=== PATIENT | female | born 1960 | race Caucasian/White ===

== ENCOUNTER 2019-03-11 14:56 | Observation (INO) | payer MEDICARE, MEDICAID ==
[2019-03-11] MEDS ORDERED: diazePAM 5 MG/ML MDV IVPUSH ONE (15:05)
[2019-03-11] MEDS ORDERED: Sodium Chloride 0.9% 10 ML Syringe FLUSH PRN (15:05)
[2019-03-11] MEDS ORDERED: Sodium Chloride 0.9% 1,000 ML IV ONE (15:06)
--- NOTE | 2019-03-11 15:36 | EDM.PDOC ---
<Zaynab English - Last Filed: 03/11/19 16:55> ED HPI GENERAL MEDICAL PROBLEM - General Chief Complaint: General Stated Complaint: decrease responsiveness/seizure Time Seen by Provider: 03/11/19 15:00 Source of Information: Reports: Other History Limitations: Reports: Language Barrier, Other (Intellectual disability patient-limited verbal) - History of Present Illness INITIAL COMMENTS - FREE TEXT/NARRATIVE: Patient comes in to the emergency department with complaint of seizure activity. Patient has an history of seizures and is on Depakote 500 mg twice a day however for as long as the patient has [facility] living [facility] they have not noticed any seizure activities. She's also been in to see her neurologist on a regular basis and they have not change her medications in many years for they have had no increase or seizure activity. According to staff the patient was up walking around at work and was vacuuming when she would not respond appropriately and she needed to sit down and she was not answering questions and was having "shaking" episodes according to the staff. They called 911 for further assistance. EMS on scene state that they did notice some generalized tremor activity was unresponsiveness at times. Her eyes would roll back in the back of her head. When she came around she was not responding appropriately according to her baseline communication abilities. Patient does have intellectual disability and does expressing herself. Staff state that the current state she is in is more extensive than normally. They state she has not been ill lately; no fevers; eat all her breakfast and lunch; did not eat or get into any cleaning supplies while at work. - Related Data Allergies Allergy/AdvReac Type Severity Reaction Status Date / Time cephalexin [From Keflex] Allergy Cannot Verified 03/11/19 17:33 Remember phenobarbital Allergy Cannot Verified 03/11/19 17:33 Remember phenytoin [From Dilantin] Allergy Cannot Verified 03/11/19 17:33 Remember Home Meds: Home Meds Carboxymethylcellulose Sodium [Refresh Tears 0.5%] 1 drop EYEBOTH DAILY [History] Cholecalciferol (Vitamin D3) [Vitamin D3] 2,000 unit PO DAILY 03/11/19 [History] Divalproex Sodium [Divalproex Sodium ER] 500 mg PO BID 03/11/19 [History] Levothyroxine 125 mcg PO ACBREAKFAST 03/11/19 [History] Multivitamin [Multi-Vitamin Daily] 1 each PO DAILY 03/11/19 [History] ED ROS GENERAL - Review of Systems Review Of Systems: Unable To Obtain ED EXAM, GENERAL - Physical Exam Exam: See Below Exam Limited By: Language Barrier General Appearance: Alert, No Apparent Distress Eye Exam: Bilateral Eye: PERRL Respiratory/Chest: No Respiratory Distress, Lungs Clear, Normal Breath Sounds, No Accessory Muscle Use, Chest Non-Tender Cardiovascular: Normal Peripheral Pulses, Regular Rate, Rhythm, No Edema Back Exam: Normal Inspection, Full Range of Motion Extremities: Normal Inspection, Non-Tender, No Pedal Edema Neurological: Alert, Normal Gait Psychiatric: Normal Affect, Normal Mood Skin Exam: Warm, Dry, Intact, Normal Color Course - Vital Signs Last Recorded V/S: Last Vital Signs Temp 35.8 C 03/11/19 17:29 Pulse 56 L 03/11/19 17:29 Resp 16 03/11/19 17:29 BP 150/54 H 03/11/19 17:29 Pulse Ox 100 03/11/19 17:29 - Orders/Labs/Meds Orders: Active Orders 24 hr Category Date Time Status AMMONIA [REF] Stat Lab 03/11/19 15:51 Received CULTURE URINE [RM] Stat Lab 03/11/19 16:30 Received VALPROIC ACID [REF] Stat Lab 03/11/19 15:22 Received Sodium Chloride 0.9% [Saline Flush] Med 03/11/19 15:05 Active 10 ml FLUSH ASDIRECTED PRN Peripheral IV Insertion Adult [OM.PC] Stat Oth 03/11/19 15:05 Ordered Medication Orders Cholecalciferol (Vitamin D3) 2,000 units PO DAILY [facility] Divalproex Sodium (Divalproex Sodium) 500 mg PO QAM [facility] Divalproex Sodium (Divalproex Sodium) 750 mg PO BEDTIME [facility] Levothyroxine Sodium (Levothyroxine) 125 mcg PO ACBREAKFAST COUNTS INCLUDE 234 BEDS AT THE [facility] Multivitamins/Minerals (Thera M Plus) 1 tab PO DAILY K[facility]NA Non-Formulary Medication (Carboxymethylcellulose Sodium [Refresh Tears 0.5%]) 1 drop EYEBOTH DAILY K[facility]NA Sodium Chloride (Saline Flush) 10 ml FLUSH ASDIRECTED PRN PRN Reason: Keep Vein Open Labs: Laboratory Tests 03/11/19 03/11/1903/11/19 Range/Units 15:22 15:22 15:22 WBC 3.7 L (4.0-10.0) x10^3/uL RBC 3.59 L (4.00-5.50) x10^6/uL Hgb 12.8 (12.0-16.0) g/dL Hct 36.7 (33.0-47.0) % MCV 102.2 H (78.0-93.0) fL MCH 35.7 H (26.0-32.0) pg MCHC 34.9 (32.0-36.0) g/dL RDW Coeff of Ester 14.1 (10.0-15.0) % Plt Count 203 (130-400) x10^3/uL Neut % (Auto) 54.6 (50.0-80.0) % Lymph % (Auto) 35.1 (25.0-50.0) % [place] % (Auto) 9.0 (2.0-11.0) % Eos % (Auto) 0.8 (0.0-4.0) % Baso % (Auto) 0.5 (0.2-1.2) % Sodium 142 (136-145) mmol/L Potassium 4.1 (3.5-5.1) mmol/L Chloride 104 (98-107) mmol/L Carbon Dioxide 31 (21-32) mmol/L Anion Gap 11.1 (10-20) mmol/L BUN 28 H (7-18) mg/dL Creatinine 1.2 H (0.55-1.02) mg/dL Est Cr Clr Drug Dosing TNP Estimated GFR (MDRD) 46 Glucose 122 H (74-106) mg/dL Calcium 8.8 (8.5-10.1) mg/dL Corrected Calcium 9.60 (8.5-10.1) mg/dL Total Bilirubin 0.2 (0.2-1.0) mg/dL AST 24 (15-37) U/L ALT 21 (14-59) U/L Alkaline Phosphatase 93 (46-116) U/L Creatine Kinase 62 (26-192) U/L Total Protein 7.6 (6.4-8.2) g/dL Albumin 3.0 L (3.4-5.0) g/dL Globulin 4.6 Albumin/Globulin Ratio 0.65 Urine Color (YELLOW) Urine Appearance (CLEAR) Urine pH (5.0-8.0) Ur Specific [place] Urine Protein (NEGATIVE) mg/dL Urine Glucose (UA) (NEGATIVE) mg/dL Urine Ketones (NEGATIVE) mg/dL Urine Occult Blood (NEGATIVE) Urine Nitrite (NEGATIVE) Urine Bilirubin (NEGATIVE) Urine Urobilinogen (0.2) EU/dL Ur Leukocyte Esterase (NEGATIVE) Urine RBC (NOT SEEN) /HPF Urine WBC (NOT SEEN) /HPF Ur Squamous Epith Cells (NEGATIVE) /HPF Urine Bacteria (NEGATIVE) /HPF Urine Mucus (NEGATIVE) /LPF Urinalysis Comment 03/11/19 Range/Units 16:30 WBC (4.0-10.0) x10^3/uL RBC (4.00-5.50) x10^6/uL Hgb (12.0-16.0) g/dL Hct (33.0-47.0) % MCV (78.0-93.0) fL MCH (26.0-32.0) pg MCHC (32.0-36.0) g/dL RDW Coeff of Ester (10.0-15.0) % Plt Count (130-400) x10^3/uL Neut % (Auto) (50.0-80.0) % Lymph % (Auto) (25.0-50.0) % [place] % (Auto) (2.0-11.0) % Eos % (Auto) (0.0-4.0) % Baso % (Auto) (0.2-1.2) % Sodium (136-145) mmol/L Potassium (3.5-5.1) mmol/L Chloride (98-107) mmol/L Carbon Dioxide (21-32) mmol/L Anion Gap (10-20) mmol/L BUN (7-18) mg/dL Creatinine (0.55-1.02) mg/dL Est Cr Clr Drug Dosing Estimated GFR (MDRD) Glucose (74-106) mg/dL Calcium (8.5-10.1) mg/dL Corrected Calcium (8.5-10.1) mg/dL Total Bilirubin (0.2-1.0) mg/dL AST (15-37) U/L ALT (14-59) U/L Alkaline Phosphatase (46-116) U/L Creatine Kinase (26-192) U/L Total Protein (6.4-8.2) g/dL Albumin (3.4-5.0) g/dL Globulin Albumin/Globulin Ratio Urine Color Yellow (YELLOW) Urine Appearance Clear (CLEAR) Urine pH 6.5 (5.0-8.0) Ur Specific [place] <1.005 Urine Protein >=300 H (NEGATIVE) mg/dL Urine Glucose (UA) Negative (NEGATIVE) mg/dL Urine Ketones Negative (NEGATIVE) mg/dL Urine Occult Blood Negative (NEGATIVE) Urine Nitrite Negative (NEGATIVE) Urine Bilirubin Negative (NEGATIVE) Urine Urobilinogen 0.2 (0.2) EU/dL Ur Leukocyte Esterase Moderate H (NEGATIVE) Urine RBC 0-5 (NOT SEEN) /HPF Urine WBC 0-5 (NOT SEEN) /HPF Ur Squamous Epith Cells Rare (NEGATIVE) /HPF Urine Bacteria Not seen (NEGATIVE) /HPF Urine Mucus Not seen (NEGATIVE) /LPF Urinalysis Comment Meds: Medications Generic Name Dose Route Start Last Admin Trade Name Freq PRN Reason Stop Dose Admin Cholecalciferol 2,000 units 03/12/19 08:00 Vitamin D3 PO DAILY KATIANA Divalproex Sodium 500 mg 03/12/19 08:00 Divalproex Sodium PO QAM KATIANA Divalproex Sodium 750 mg 03/12/19 20:00 Divalproex Sodium PO BEDTIME KATIANA Levothyroxine Sodium 125 mcg 03/12/19 07:00 Levothyroxine PO ACBREAKFAST KATIANA Multivitamins/Minerals 1 tab 03/12/19 08:00 Thera M Plus PO DAILY KATIANA Non-Formulary Medication 1 drop 03/12/19 08:00 Carboxymethylcellulose Sodium [Refresh Tears 0.5%] EYEBOTH DAILY KATIANA Sodium Chloride 10 ml 03/11/19 15:05 Saline Flush FLUSH ASDIRECTED PRN Keep Vein Open Discontinued Medications Generic Name Dose Route Start Last Admin Trade Name Freq PRN Reason Stop Dose Admin Diazepam 5 mg 03/11/19 15:05 03/11/19 15:39 Valium IVPUSH 03/11/19 15:06 5 mg STAT ONE Administration Divalproex Sodium 500 mg 03/11/19 16:52 03/11/19 17:03 Divalproex Sodium PO 03/11/19 16:53 500 mg NOW STA Administration Divalproex Sodium 500 mg 03/12/19 08:00 Depakote Er PO QAM KATIANA Divalproex Sodium 750 mg 03/11/19 20:00 Divalproex Sodium PO BEDTIME KATIANA Divalproex Sodium 250 mg 03/11/19 17:39 Divalproex Sodium PO 03/11/19 17:40 ONETIME ONE Sodium Chloride 1,000 mls @ 1,000 mls/hr 03/11/19 15:06 03/11/19 15:14 Normal Saline IV 03/11/19 16:05 1,000 mls/hr ONETIME ONE Administration Departure - Departure Disposition: Refer to Observation Condition: Good Clinical Impression: Seizure - Discharge Information *PRESCRIPTION DRUG MONITORING PROGRAM REVIEWED*: Not Applicable *COPY OF PRESCRIPTION DRUG MONITORING REPORT IN PATIENT TOMMIE: Not Applicable - Problem List Review Problem List Initiated/Reviewed/Updated: Yes - Assessment/Plan Admission H&P: Please use this note as an admission H&P Assessment:: 1. seizure activity Plan: 1. Labs completed in the ER. Results reviewed with the patient 2. IV fluids given to the patient 3. Delay of information provided for staff who were with pt left before talking to staff and next staff not present who could offer answers till 3:30. 4. Valium 5mg IV given for involuntary eye and body movement. 5. Patient to get up and ambulate without complication 6. UA completed. 8. [facility] Neurology contacted who suggest 500mg depakote dose now. Increase depakote 500mg AM and 750mg HS until levels return and evaluate. Observe over night for any added activity. If changes in mentation or increase in seizure activity they recommend calling back and transferring for further medical management. 7. Report given to Timmy ANTONIO. Pt will be admitted to observation <Timmy Crowley - Last Filed: 03/11/19 17:51> Departure - Departure Time of Disposition: 17:30 - Assessment/Plan Plan: Resumed care at shift change. Pt. was given an extra 250mg of depakote for a total of 750mg tonight. Pt. was placed on seizure precautions and hourly neuro checks. Regular diet. Staff states that she is a code 2.
[2019-03-11 15:48] LABS: CHLORIDE,CL 104 mmol/L (98-107); SODIUM,NA 142 mmol/L (136-145)
[2019-03-11 15:54] LABS: ANION GAP 11.1 mmol/L (10-20)
--- NOTE | 2019-03-11 16:38 | CT ---
[id number] CT/CT Head WO IV EXAM: NONCONTRAST HEAD CT INDICATION: Seizure activity with history of Down syndrome. COMPARISON: None. DISCUSSION: Motion artifact somewhat limits this assessment. There is mild generalized atrophy. Mild multifocal white matter hypoattenuation is nonspecific, but generally ascribed to chronic small vessel ischemia. No mass effect or midline shift. No acute hemorrhage or extra-axial fluid collection. No acute territorial infarct is identified. A limited look at the orbits and paranasal sinuses is unremarkable. IMPRESSION: 1. No acute findings. Andrew Bauman MD 03/11/19 0807 Thank you for allowing us to participate in the care of your patient.
[2019-03-11] MEDS ORDERED: Divalproex Sodium Delayed-Release 250 MG Tab.CR PO STA (16:52)
[2019-03-11] MEDS ORDERED: Divalproex Sodium Delayed-Release 250 MG Tab.CR PO ONE (17:39)
[2019-03-11] MEDS: Dextran 70/Hypromellose/PF Ophth Soln 0.9 ML UD EYEBOTH SCH (19:49)
[2019-03-11] MEDS ORDERED: Divalproex Sodium Delayed-Release 250 MG Tab.CR PO SCH (20:00)
[2019-03-12] MEDS ORDERED: Levothyroxine 125 MCG Tab PO SCH (07:00)
[2019-03-12] MEDS: Dextran 70/Hypromellose/PF Ophth Soln 0.9 ML UD EYEBOTH SCH (07:35)
[2019-03-12] MEDS ORDERED: Divalproex Sodium 500 MG Tab.ER PO SCH (08:00)
[2019-03-12] MEDS ORDERED: Divalproex Sodium Delayed-Release 250 MG Tab.CR PO SCH ×2 (08:00→20:00)
[2019-03-12] MEDS ORDERED: Multivitamins with Iron/Calcium/Folic Acid/Minerals Tab PO SCH (08:00)
[2019-03-12] MEDS ORDERED: Cholecalciferol (Vitamin D3) 1,000 Unit Tab PO SCH (08:00)
[2019-03-12] MEDS ORDERED: Nitrofurantoin Monohydrate/Macrocrystalline 100 MG Cap PO SCH ×2 (08:00→10:00)
--- NOTE | 2019-03-12 08:07 | PCM.DCSUM1 ---
Discharge Summary - Hospital Course Free Text/Narrative:: Patient admitted for observation last night due to return of seizure activity and UTI. Patient resides at [facility] and has seizure disorder historically, but no recent activity. Was unresponsive, with head shaking. Upon completion of labwork, moderate amounts of leukocytes were in urine. Culture is pending. No nitrates. Brief History: Neurology was consulted in ER and suggested to have her Depakote dosing increased, and an initial 500 mg dose in ER. Increased to 500 mg in AM and 750 mg HS pending depakote level evaluation. Diagnosis: Stroke: No Modified [place] Scale: No Symptoms at All Modified [place] Scale Score: 0 - Discharge Data Discharge Date: 03/12/19 Discharge Disposition: Home, Self-Care 01 Condition: Good - Discharge Diagnosis/Problem(s) (1) Seizure SNOMED Code(s): 00046610 ICD Code: R56.9 - UNSPECIFIED CONVULSIONS Status: Acute Current Visit: Yes (2) UTI (urinary tract infection) SNOMED Code(s): 73757214 ICD Code: N39.0 - URINARY TRACT INFECTION, SITE NOT SPECIFIED Status: Acute Current Visit: Yes Qualifiers: Urinary tract infection type: acute cystitis Hematuria presence: without hematuria Qualified Code(s): N30.00 - Acute cystitis without hematuria - Patient Summary/Data Recommended Follow-up Testing/Procedures: Follow up with primary provider this week to review Valproic Acid level draw and adjust Depakote dosing as appropriate Follow up with neurology as needed. Sooner if seizure activity returns. - Patient Instructions Diet: Usual Diet as Tolerated Activity: As Tolerated - Discharge Plan *PRESCRIPTION DRUG MONITORING PROGRAM REVIEWED*: Not Applicable *COPY OF PRESCRIPTION DRUG MONITORING REPORT IN PATIENT TOMMIE: Not Applicable Home Medications: Home Meds Carboxymethylcellulose Sodium [Refresh Tears 0.5%] 1 drop EYEBOTH BID 03/11/19 [ History] Cholecalciferol (Vitamin D3) [Vitamin D3] 2,000 unit PO DAILY 03/11/19 [History] Divalproex Sodium [Divalproex Sodium ER] 500 mg PO BID 03/11/19 [History] Levothyroxine 125 mcg PO ACBREAKFAST 03/11/19 [History] Multivitamin [Multi-Vitamin Daily] 1 each PO DAILY 03/11/19 [History] Patient Handouts: Seizure, Adult, [id number], Urinary Tract Infection, Adult , [id number] Referrals: Paul Mabry MD [Primary Care Provider] - - Discharge Summary/Plan Comment DC Time >30 min.: Yes Discharge Summary/Plan Comment: Discharge to home with new dosing of Depakote of 500 mg AM and 750 mg HS on recommendation from Neurology Follow up with primary to review Valproic Acid levels and adjust new dosing as needed Schedule follow up with neurology for additional testing if seizure activity returns Finish macrobid course until finished unless you have allergic reaction including systemic hives/itching, difficulty breathing, facial swelling Stay well hydrated We will notify [facility] if there need to be any changes to antibiotic based on culture results - General Info Date of Service: 03/12/19 Admission Dx/Problem (Free Text: Patient admitted observation after being brought into the ER for seizure activity. Known seizure disorder, however she has not had a witnessed seizure in years per staff report. UTI also found on urinalysis with moderate amounts of leukocytes. Functional Status: Reports: Pain Controlled, Tolerating Diet, Ambulating, Urinating - Review of Systems General: Reports: No Symptoms HEENT: Reports: Glasses Pulmonary: Reports: No Symptoms Cardiovascular: Reports: No Symptoms Gastrointestinal: Reports: No Symptoms Genitourinary: Reports: No Symptoms Musculoskeletal: Reports: No Symptoms Skin: Reports: No Symptoms Neurological: Reports: No Symptoms Psychiatric: Reports: No Symptoms - Patient Data Vitals - Most Recent: Last Vital Signs Temp 36.0 C 03/12/19 06:00 Pulse 54 L 03/12/19 06:00 Resp 16 03/12/19 06:00 BP 112/46 L 03/12/19 06:00 Pulse Ox 96 03/12/19 06:00 Weight - Most Recent: 74.843 kg I&O - Last 24 hours: Intake & Output 03/11/19 03/12/19 03/12/19 22:59 06:59 14:59 Intake Total 360 Balance 360 Lab Results - Last 24 hrs: Laboratory Results - last 24 hr 03/11/19 03/11/19 03/11/19 Range/Units 15:22 15:22 15:22 WBC 3.7 L (4.0-10.0) x10^3/uL RBC 3.59 L (4.00-5.50) x10^6/uL Hgb 12.8 (12.0-16.0) g/dL Hct 36.7 (33.0-47.0) % MCV 102.2 H (78.0-93.0) fL MCH 35.7 H (26.0-32.0) pg MCHC 34.9 (32.0-36.0) g/dL RDW Coeff of Ester 14.1 (10.0-15.0) % Plt Count 203 (130-400) x10^3/uL Neut % (Auto) 54.6 (50.0-80.0) % Lymph % (Auto) 35.1 (25.0-50.0) % [place] % (Auto) 9.0 (2.0-11.0) % Eos % (Auto) 0.8 (0.0-4.0) % Baso % (Auto) 0.5 (0.2-1.2) % Sodium 142 (136-145) mmol/L Potassium 4.1 (3.5-5.1) mmol/L Chloride 104 (98-107) mmol/L Carbon Dioxide 31 (21-32) mmol/L Anion Gap 11.1 (10-20) mmol/L BUN 28 H (7-18) mg/dL Creatinine 1.2 H (0.55-1.02) mg/dL Est Cr Clr Drug Dosing TNP Estimated GFR (MDRD) 46 Glucose 122 H (74-106) mg/dL Calcium 8.8 (8.5-10.1) mg/dL Corrected Calcium 9.60 (8.5-10.1) mg/dL Total Bilirubin 0.2 (0.2-1.0) mg/dL AST 24 (15-37) U/L ALT 21 (14-59) U/L Alkaline Phosphatase 93 (46-116) U/L Creatine Kinase 62 (26-192) U/L Total Protein 7.6 (6.4-8.2) g/dL Albumin 3.0 L (3.4-5.0) g/dL Globulin 4.6 Albumin/Globulin Ratio 0.65 Urine Color (YELLOW) Urine Appearance (CLEAR) Urine pH (5.0-8.0) Ur Specific [place] Urine Protein (NEGATIVE) mg/dL Urine Glucose (UA) (NEGATIVE) mg/dL Urine Ketones (NEGATIVE) mg/dL Urine Occult Blood (NEGATIVE) Urine Nitrite (NEGATIVE) Urine Bilirubin (NEGATIVE) Urine Urobilinogen (0.2) EU/dL Ur Leukocyte Esterase (NEGATIVE) Urine RBC (NOT SEEN) /HPF Urine WBC (NOT SEEN) /HPF Ur Squamous Epith Cells (NEGATIVE) /HPF Urine Bacteria (NEGATIVE) /HPF Urine Mucus (NEGATIVE) /LPF Urinalysis Comment 03/11/19 Range/Units 16:30 WBC (4.0-10.0) x10^3/uL RBC (4.00-5.50) x10^6/uL Hgb (12.0-16.0) g/dL Hct (33.0-47.0) % MCV (78.0-93.0) fL MCH (26.0-32.0) pg MCHC (32.0-36.0) g/dL RDW Coeff of Ester (10.0-15.0) % Plt Count (130-400) x10^3/uL Neut % (Auto) (50.0-80.0) % Lymph % (Auto) (25.0-50.0) % [place] % (Auto) (2.0-11.0) % Eos % (Auto) (0.0-4.0) % Baso % (Auto) (0.2-1.2) % Sodium (136-145) mmol/L Potassium (3.5-5.1) mmol/L Chloride (98-107) mmol/L Carbon Dioxide (21-32) mmol/L Anion Gap (10-20) mmol/L BUN (7-18) mg/dL Creatinine (0.55-1.02) mg/dL Est Cr Clr Drug Dosing Estimated GFR (MDRD) Glucose (74-106) mg/dL Calcium (8.5-10.1) mg/dL Corrected Calcium (8.5-10.1) mg/dL Total Bilirubin (0.2-1.0) mg/dL AST (15-37) U/L ALT (14-59) U/L Alkaline Phosphatase (46-116) U/L Creatine Kinase (26-192) U/L Total Protein (6.4-8.2) g/dL Albumin (3.4-5.0) g/dL Globulin Albumin/Globulin Ratio Urine Color Yellow (YELLOW) Urine Appearance Clear (CLEAR) Urine pH 6.5 (5.0-8.0) Ur Specific [place] <1.005 Urine Protein >=300 H (NEGATIVE) mg/dL Urine Glucose (UA) Negative (NEGATIVE) mg/dL Urine Ketones Negative (NEGATIVE) mg/dL Urine Occult Blood Negative (NEGATIVE) Urine Nitrite Negative (NEGATIVE) Urine Bilirubin Negative (NEGATIVE) Urine Urobilinogen 0.2 (0.2) EU/dL Ur Leukocyte Esterase Moderate H (NEGATIVE) Urine RBC 0-5 (NOT SEEN) /HPF Urine WBC 0-5 (NOT SEEN) /HPF Ur Squamous Epith Cells Rare (NEGATIVE) /HPF Urine Bacteria Not seen (NEGATIVE) /HPF Urine Mucus Not seen (NEGATIVE) /LPF Urinalysis Comment Med Orders - Current: Current Medications Artificial Tears (Tears Naturale Free) 0 each EYEBOTH BID [facility] Last Admin: 03/12/19 07:35 Dose: 1 each Cholecalciferol (Vitamin D3) 2,000 units PO DAILY [facility] Last Admin: 03/12/19 07:34 Dose: 2,000 units Divalproex Sodium (Divalproex Sodium) 500 mg PO QAM [facility] Last Admin: 03/12/19 07:34 Dose: 500 mg Divalproex Sodium (Divalproex Sodium) 750 mg PO BEDTIME [facility] Levothyroxine Sodium (Levothyroxine) 125 mcg PO ACBREAKFAST [facility] Last Admin: 03/12/19 06:32 Dose: 125 mcg Multivitamins/Minerals (Thera M Plus) 1 tab PO DAILY [facility] Last Admin: 03/12/19 07:37 Dose: 1 tab Nitrofurantoin Macrocrystals (Macrobid) 100 mg PO BID [facility] Last Admin: 03/12/19 07:34 Dose: 100 mg Sodium Chloride (Saline Flush) 10 ml FLUSH ASDIRECTED PRN PRN Reason: Keep Vein Open Discontinued Medications Diazepam (Valium) 5 mg IVPUSH STAT ONE Stop: 03/11/19 15:06 Last Admin: 03/11/19 15:39 Dose: 5 mg Divalproex Sodium (Divalproex Sodium) 500 mg PO NOW STA Stop: 03/11/19 16:53 Last Admin: 03/11/19 17:03 Dose: 500 mg Divalproex Sodium (Depakote Er) 500 mg PO QAM [facility] Divalproex Sodium (Divalproex Sodium) 750 mg PO BEDTIME KATIANA Divalproex Sodium (Divalproex Sodium) 250 mg PO ONETIME ONE Stop: 03/11/19 17:40 Last Admin: 03/11/19 17:54 Dose: 250 mg Sodium Chloride (Normal Saline) 1,000 mls @ 1,000 mls/hr IV ONETIME ONE Stop: 03/11/19 16:05 Last Admin: 03/11/19 15:14 Dose: 1,000 mls/hr - Exam General: Reports: Alert, Oriented HEENT: Reports: Pupils Equal, Pupils Reactive, EOMI, Mucous Membr. Moist/[place] Neck: Reports: Supple Lungs: Reports: Clear to Auscultation, Normal Respiratory Effort Cardiovascular: Reports: Regular Rate, Regular Rhythm GI/Abdominal Exam: Normal Bowel Sounds, Soft, Non-Tender, No Organomegaly, No Distention, No Abnormal Bruit, No Mass, Pelvis Stable Back Exam: Reports: Normal Inspection, Full Range of Motion Extremities: Normal Inspection, Normal Range of Motion, Non-Tender, No Pedal Edema, Normal Capillary Refill Skin: Reports: Warm, Dry, Intact Wound/Incisions: Reports: Healing Well Neurological: Reports: No New Focal Deficit Psy/Mental Status: Reports: Alert, Normal Affect, Normal Mood
[2019-03-12] MEDS ORDERED: Divalproex Sodium Delayed-Release 250 MG Tab.CR PO ONE (09:13)
== END 2019-03-12 10:45 | disposition home or self-care (01) ==
LOC: VM.ED 14:56 → VM.MS 17:05
PROVIDERS: ADMIT Physician Assistant; ATTEND Physician Assistant
DX: R56.9 Unspecified convulsions (principal); N30.00 Acute cystitis without hematuria; Z79.899 Other long term (current) drug therapy; Z88.1 Allergy status to other antibiotic agents; Z88.8 Allergy status to other drugs, medicaments and biological substances
CPT/HCPCS: 36415; 70450; 80053; 80164; 81001; 82140; 82550; 85025; 87086; 93005; 96361; 96374; 99285; A9270; J3360; J7030; 99217; 99219; G0378

== ENCOUNTER 2019-04-04 23:30 | Emergency (ER) | payer MEDICARE, MEDICAID ==
[2019-04-04] MEDS: GI Cocktail Oral Solution 30 ML PO ONE (23:53)
[2019-04-05 00:46] LABS: ANION GAP 10.2 mmol/L (10-20); CHLORIDE,CL 101 mmol/L (98-107); SODIUM,NA 142 mmol/L (136-145)
[2019-04-05] MEDS: Aluminum Hydroxide/Magnesium Hydroxide/Simethicone Susp 30 ML Cup PO ONE (00:49)
--- NOTE | 2019-04-05 01:00 | EDM.PDOC ---
ED HPI GENERAL MEDICAL PROBLEM - General Chief Complaint: Chest Pain Stated Complaint: Chest Pain Time Seen by Provider: 04/04/19 23:40 Source of Information: Reports: Patient History Limitations: Reports: No Limitations - History of Present Illness INITIAL COMMENTS - FREE TEXT/NARRATIVE: Pt. presents to ER with complaints of epigastric pain. Pt. is a resident at one of the group homes (she has down syndrome) and woke one of the staff members stating she was having discomfort. Staff states that she is difficult to assess and often has various symptoms when she is upset, but stated that she had a great night last night and ate subway for supper. She still has her gallbladder to their knowledge. Pt. states that the pain is located in mid upper abdomen. The discomfort is worse with palpation of the area. Pt. has not had any fever or chills. No bloody stools that they are aware of. No recent trauma. She was hospitalized not long ago due to seizure activity thought to be due to subtheraputic depakote, but staff states that she has been doing well since then. Onset: Today Onset Date: 04/05/19 Quality: Reports: Sharp Epigastric Pain Score (Numeric/FACES): 6 - Related Data Allergies Allergy/AdvReac Type Severity Reaction Status Date / Time cephalexin [From Keflex] Allergy Cannot Verified 04/04/19 23:40 Remember phenobarbital Allergy Cannot Verified 04/04/19 23:40 Remember phenytoin [From Dilantin] Allergy Cannot Verified 04/04/19 23:40 Remember Home Meds: Home Meds Carboxymethylcellulose Sodium [Refresh Tears 0.5%] 1 drop EYEBOTH BID 03/11/19 [ History] Cholecalciferol (Vitamin D3) [Vitamin D3] 2,000 unit PO DAILY 03/11/19 [History] Levothyroxine 125 mcg PO ACBREAKFAST 03/11/19 [History] Multivitamin [Multi-Vitamin Daily] 1 each PO DAILY 03/11/19 [History] Divalproex Sodium 500 mg PO QAM #30 tab.cr 03/12/19 [Rx] Divalproex Sodium 750 mg PO BEDTIME #30 tab.cr 03/12/19 [Rx] Nitrofurantoin [place]/Macrocryst [Nitrofurantoin [place]-MCR] 100 mg PO BID #10 cap 03/12/19 [Rx] Past Medical History HEENT History: Reports: Cataract, Hard of Hearing, Impaired Vision, Otitis Media , Other (See Below) Other HEENT History: Patient wears hearing aides in both ears. Esotropia of right eye. 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 Henangioma (lesion removed from right upper eyelid GI Surgical History: Reports: Other (See Below) Other GI Surgeries/Procedures: Colon cancer screening Female Surgical History: Reports: Tubal Ligation Social & Family History - Tobacco Use Smoking Status *Q: Never Smoker - Recreational Drug Use Recreational Drug Use: No ED ROS GENERAL - Review of Systems Review Of Systems: See Below Constitutional: Reports: No Symptoms HEENT: Reports: No Symptoms Respiratory: Reports: No Symptoms Cardiovascular: Reports: No Symptoms Endocrine: Reports: No Symptoms GI/Abdominal: Reports: Abdominal Pain. Denies: Black Stool, Bloody Stool, Difficulty Swallowing, Hematochezia, Melena, Nausea, Vomiting : Reports: No Symptoms Musculoskeletal: Reports: No Symptoms Skin: Reports: No Symptoms Neurological: Reports: No Symptoms Psychiatric: Reports: No Symptoms Hematologic/Lymphatic: Reports: No Symptoms ED EXAM, GENERAL - Physical Exam Exam: See Below Exam Limited By: No Limitations General Appearance: Alert, WD/WN, No Apparent Distress Neck: Normal Inspection, Supple, Non-Tender, Full Range of Motion Respiratory/Chest: No Respiratory Distress, Lungs Clear, Normal Breath Sounds, No Accessory Muscle Use, Chest Non-Tender Cardiovascular: Normal Peripheral Pulses, Regular Rate, Rhythm, No Edema, No Gallop, No JVD, No Murmur, No Rub Peripheral Pulses: 4+: Radial (R) GI/Abdominal: Normal Bowel Sounds, Soft, No Organomegaly, No Distention, No Mass , Tender (tender on palpation of epigastrium) (Female) Exam: Deferred Rectal (Female) Exam: Deferred Back Exam: Normal Inspection, Full Range of Motion Extremities: Normal Inspection, Normal Range of Motion, Non-Tender, No Pedal Edema, Normal Capillary Refill Neurological: Alert, Oriented, CN II-XII Intact, Normal Cognition, Normal Gait, Normal Reflexes, No Motor/Sensory Deficits Psychiatric: Normal Affect, Normal Mood Skin Exam: Warm, Dry, Intact, Normal Color Lymphatic: No Adenopathy EKG INTERPRETATION Rhythm: NSR Pierce: Normal P-Wave: Present QRS: Normal ST-T: Normal QT: Normal Course - Vital Signs Last Recorded V/S: Last Vital Signs Temp 36.2 C 04/05/19 00:15 Pulse 67 04/05/19 00:15 Resp 16 04/05/19 00:15 BP 140/63 04/05/19 00:15 Pulse Ox 100 04/05/19 00:15 - Orders/Labs/Meds Orders: Active Orders 24 hr Category Date Time Status Chest 1V Frontal [CR] Stat Exams 04/04/19 23:46 Taken Labs: Laboratory Tests 04/05/19 04/05/19 04/05/19 Range/Units 00:07 00:07 00:07 WBC 4.5 (4.0-10.0) x10^3/uL RBC 3.93 L (4.00-5.50) x10^6/uL Hgb 13.7 (12.0-16.0) g/dL Hct 41.2 (33.0-47.0) % MCV 104.8 H (78.0-93.0) fL MCH 34.9 H (26.0-32.0) pg MCHC 33.3 (32.0-36.0) g/dL RDW Coeff of Ester 14.0 (10.0-15.0) % Plt Count 228 (130-400) x10^3/uL Add Manual Diff Yes Neutrophils % (Manual) 39 L (50-80) % Band Neutrophils % 3 (0-6) % Lymphocytes % (Manual) 48 (25-50) % Monocytes % (Manual) 10 (2-11) % Nucleated RBCs 1 (0-5) /100WBC Platelet Estimate Adequate Macrocytosis 1+ slight H PT 10.5 (10.0-12.8) SEC INR 0.9 L (2.0-3.5) Sodium 142 (136-145) mmol/L Potassium 4.2 (3.5-5.1) mmol/L Chloride 101 (98-107) mmol/L Carbon Dioxide 35 H (21-32) mmol/L Anion Gap 10.2 (10-20) mmol/L BUN 28 H (7-18) mg/dL Creatinine 1.2 H (0.55-1.02) mg/dL Est Cr Clr Drug Dosing TNP Estimated GFR (MDRD) 46 Glucose 90 (74-106) mg/dL Calcium 9.0 (8.5-10.1) mg/dL Corrected Calcium 9.64 (8.5-10.1) mg/dL Total Bilirubin 0.2 (0.2-1.0) mg/dL AST 26 (15-37) U/L ALT 23 (14-59) U/L Alkaline Phosphatase 95 (46-116) U/L Troponin I 0.020 (<=0.056) ng/mL C-Reactive Protein 0.5 (<=0.9) mg/dL Total Protein 8.0 (6.4-8.2) g/dL Albumin 3.2 L (3.4-5.0) g/dL Globulin 4.8 Albumin/Globulin Ratio 0.67 TSH, Ultra Sensitive 0.218 L (0.358-3.74) uIU/mL Meds: Medications Discontinued Medications Generic Name Dose Route Start Last Admin Trade Name Mauricio PRN Reason Stop Dose Admin Al Hydroxide/Mg Hydroxide 30 ml 04/04/19 23:48 04/04/19 23:53 Gi Cocktail PO 04/04/19 23:49 30 ml ONETIME ONE Administration Al Hydroxide/Mg Hydroxide 30 ml 04/05/19 00:43 04/05/19 00:49 Mag-Al Plus PO 04/05/19 00:44 30 ml ONETIME ONE Administration Departure - Departure Time of Disposition: 01:00 Disposition: Home, Self-Care 01 Clinical Impression: Esophagitis - Discharge Information Instructions: Gastroesophageal Reflux Disease, Adult, [id number] Referrals: Paul Mabry MD [Primary Care Provider] - Forms: ED Department Discharge Additional Instructions: Maalox as needed for continued abdominal pain She may feel better sleeping while sitting up in a chair tonight If she is continuing to have pain, follow-up with Dr. Mabry. She may need to start medication for reflux. I will defer to his, as this appears to be an isolated incident. - My Orders Last 24 Hours: My Active Orders 04/04/19 23:46 Chest 1V Frontal [CR] Stat - Assessment/Plan Last 24 Hours: My Active Orders 04/04/19 23:46 Chest 1V Frontal [CR] Stat Plan: Pt. was given a GI cocktail with complete resolution in her symptoms. After approx. 30 min she had some increased discomfort. She was given another 30ml of Maalox with resolution of pain. Cause of discomfort appears to be GI in nature. Pt. was subsequently discharged as her x-ray and labs were all normal. Advised that she sleep in an easy chair semi reclining if she has further pain. She was not started on any PPI or antihistamine at this time as it appears this is a resolving isolated incident. Maalox as needed for continued pain. Pt. to follow- up in clinic if she is having continued symptoms.
--- NOTE | 2019-04-05 08:11 | CR ---
[id number] RAD/RAD Chest PA or AP 1V EXAM: RAD Chest PA or AP 1V INDICATION: CHEST PAIN. COMPARISON: 02/08/2009. DISCUSSION: Cardiomediastinal silhouette is normal in size and contour. No infiltrate, effusion, pneumothorax, or edema. IMPRESSION: Negative examination of the chest. Richie Mcclure MD 04/05/19 0810 Thank you for allowing us to participate in the care of your patient.
== END 2019-04-05 01:00 | disposition home or self-care (01) ==
LOC: VM.ED 23:30
DX: K20.9 Esophagitis, unspecified (principal); E66.9 Obesity, unspecified; E78.00 Pure hypercholesterolemia, unspecified; E03.9 Hypothyroidism, unspecified; Z88.8 Allergy status to other drugs, medicaments and biological substances; Z88.1 Allergy status to other antibiotic agents; Z79.899 Other long term (current) drug therapy; Z68.30 Body mass index [BMI] 30.0-30.9, adult
CPT/HCPCS: 71045; 80053; 84443; 84484; 85025; 85610; 86140; 93005; 99284; A9270; 36415

== ENCOUNTER 2020-06-23 15:41 | Emergency (ER) | payer MEDICAID, MEDICARE ==
--- NOTE | 2020-06-23 16:13 | EDM.PDOC ---
ED HPI GENERAL MEDICAL PROBLEM - General Chief Complaint: Abdominal Pain Stated Complaint: POSSIBLE UTI Time Seen by Provider: 06/23/20 16:00 Source of Information: Reports: Provider (restorative care technician [facility] ) History Limitations: Reports: Altered Mental Status (Patient has Down syndrome) - History of Present Illness INITIAL COMMENTS - FREE TEXT/NARRATIVE: Patient is brought to the emergency department today from the nursing home with concerns of abdominal pain. HPI is primarily obtained from the caregiver as the patient has Down syndrome and has limited cognitive ability. Since yesterday morning the patient has been complaining of abdominal pain more when she urinates. She has been eating and drinking okay. No fever. No vomiting. No diarrhea. No falls. Rest of the HPI is unobtainable due to the patient's cognitive ability. Abdomen Pain Score (Numeric/FACES): 5 - Related Data Allergies Allergy/AdvReac Type Severity Reaction Status Date / Time cephalexin [From Keflex] Allergy Cannot Verified 06/23/20 16:24 Remember clindamycin Allergy Cannot Verified 06/23/20 16:24 Remember phenobarbital Allergy Cannot Verified 06/23/20 16:24 Remember phenytoin [From Dilantin] Allergy Cannot Verified 06/23/20 16:24 Remember Home Meds: Home Meds Carboxymethylcellulose Sodium [Refresh Tears 0.5%] 1 drop EYEBOTH BID 03/11/19 [History] Cholecalciferol (Vitamin D3) [Vitamin D3] 2,000 unit PO DAILY 03/11/19 [History] Levothyroxine 88 mcg PO ACBREAKFAST 03/11/19 [History] Multivitamin [Multi-Vitamin Daily] 1 each PO DAILY 03/11/19 [History] Divalproex Sodium [Divalproex Sodium ER] 500 mg PO BID 04/05/19 [History] Divalproex Sodium 250 mg PO BEDTIME 06/23/20 [History] polyethylene glycoL 3350 [MiraLAX] 17 gm PO MOWEFR 06/23/20 [History] Past Medical History HEENT History: Reports: Cataract, Hard of Hearing, Impaired Vision, Otitis Media, Other (See Below) Other HEENT History: Patient wears hearing aides in both ears. Esotropia of right eye. 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 Henangioma (lesion removed from right upper eyelid GI Surgical History: Reports: Other (See Below) Other GI Surgeries/Procedures: Colon cancer screening Female Surgical History: Reports: Tubal Ligation ED ROS GENERAL - Review of Systems Review Of Systems: Comprehensive ROS is negative, except as noted in HPI. ED EXAM, RENAL/ - Physical Exam Exam: See Below Text/Narrative:: I enter the room she is pointing to her abdomen and saying ouch and appears in mild distress. Exam Limited By: Altered Mental Status (Downs Syndrome with limited cognitive ability) General Appearance: Alert, Mild Distress Eye Exam: Bilateral Eye: EOMI Ears: Normal External Exam Nose: Normal Inspection Throat/Mouth: Normal Inspection Head: Atraumatic Neck: Normal Inspection Respiratory/Chest: No Respiratory Distress, Lungs Clear, Normal Breath Sounds, Chest Non-Tender Cardiovascular: Normal Peripheral Pulses, Regular Rate, Rhythm GI/Abdominal: Normal Bowel Sounds ( mildly hypoactive), Soft, Tender (Tenderness to left lower quadrant without guarding or rebound.). No: Rebound (Female) Exam: Other (Unremarkable external vaginal exam). No: Vaginal Bleeding, Vaginal Discharge, Vaginal Lesions Rectal (Female) Exam: Deferred Back Exam: Normal Inspection, Full Range of Motion Extremities: Normal Inspection, Normal Range of Motion, Non-Tender, Normal Capillary Refill Neurological: Alert, Confused (Baseline) Psychiatric: Normal Affect, Normal Mood Skin Exam: Warm, Dry, Intact, Normal Color, No Rash Course - Vital Signs Last Recorded V/S: Last Vital Signs Temp 96.9 F 06/23/20 15:50 Pulse 74 06/23/20 15:50 Resp 20 06/23/20 15:50 BP 106/35 L 06/23/20 15:50 Pulse Ox 100 06/23/20 15:50 - Orders/Labs/Meds Orders: Active Orders 24 hr Category Date Time Status Abdomen Pelvis w Cont [CT] Stat Exams 06/23/20 16:30 Stop Req Peripheral IV Insertion Adult [OM.PC] Stat Oth 06/23/20 16:29 Ordered Labs: Laboratory Tests 06/23/20 06/23/20 06/23/20 Range/Units 16:13 16:58 16:58 WBC 3.6 L (4.0-10.0) x10^3/uL RBC 3.96 L (4.00-5.50) x10^6/uL Hgb 14.0 (12.0-16.0) g/dL Hct 40.5 (33.0-47.0) % MCV 102.3 H (78.0-93.0) fL MCH 35.4 H (26.0-32.0) pg MCHC 34.6 (32.0-36.0) g/dL RDW Coeff of Ester 15.2 H (10.0-15.0) % Plt Count 171 (130-400) x10^3/uL Add Manual Diff Yes Neutrophils % (Manual) 50 (50-80) % Band Neutrophils % 2 (0-6) % Lymphocytes % (Manual) 34 (25-50) % Monocytes % (Manual) 10 (2-11) % Eosinophils % (Manual) 4 (0-4) % Platelet Estimate Adequate Clumped Platelets Occasional H Macrocytosis 1+ slight H Sodium 135 L (136-145) mmol/L Potassium 4.9 (3.5-5.1) mmol/L Chloride 102 (98-107) mmol/L Carbon Dioxide 29 (21-32) mmol/L Anion Gap 8.9 L (10-20) mmol/L BUN 25 H (7-18) mg/dL Creatinine 1.2 H (0.55-1.02) mg/dL Est Cr Clr Drug Dosing TNP Estimated GFR (MDRD) 46 Glucose 86 (74-106) mg/dL Lactic Acid (0.4-2.0) mmol/L Calcium 9.1 (8.5-10.1) mg/dL Corrected Calcium 10.30 H (8.5-10.1) mg/dL Total Bilirubin 0.5 (0.2-1.0) mg/dL AST 21 (15-37) U/L ALT 32 (14-59) U/L Alkaline Phosphatase 85 (46-116) U/L C-Reactive Protein 0.4 (<=0.9) mg/dL Total Protein 7.5 (6.4-8.2) g/dL Albumin 2.5 L (3.4-5.0) g/dL Globulin 5.0 Albumin/Globulin Ratio 0.50 Lipase 235 (73-393) U/L Urine Color Yellow (YELLOW) POC Urine Appearance Clear (CLEAR) POC Urine pH 6.5 (5.0-8.0) Ur Specific [place] 1.020 (1.005-1.030) POC Urine Protein Trace H (NEGATIVE) POC Ur Glucose (UA) Negative (NEGATIVE) POC Urine Ketones Moderate (NEGATIVE) POC Ur Occult Blood Negative (NEGATIVE) POC Urine Nitrite Negative (NEGATIVE) POC Urine Bilirubin Negative (NEGATIVE) POC Urine Urobilinogen 0.2 (0.2) POC U Leukocyte Esteras Negative (NEGATIVE) 06/23/20 Range/Units 16:58 WBC (4.0-10.0) x10^3/uL RBC (4.00-5.50) x10^6/uL Hgb (12.0-16.0) g/dL Hct (33.0-47.0) % MCV (78.0-93.0) fL MCH (26.0-32.0) pg MCHC (32.0-36.0) g/dL RDW Coeff of Ester (10.0-15.0) % Plt Count (130-400) x10^3/uL Add Manual Diff Neutrophils % (Manual) (50-80) % Band Neutrophils % (0-6) % Lymphocytes % (Manual) (25-50) % Monocytes % (Manual) (2-11) % Eosinophils % (Manual) (0-4) % Platelet Estimate Clumped Platelets Macrocytosis Sodium (136-145) mmol/L Potassium (3.5-5.1) mmol/L Chloride (98-107) mmol/L Carbon Dioxide (21-32) mmol/L Anion Gap (10-20) mmol/L BUN (7-18) mg/dL Creatinine (0.55-1.02) mg/dL Est Cr Clr Drug Dosing Estimated GFR (MDRD) Glucose (74-106) mg/dL Lactic Acid 1.0 (0.4-2.0) mmol/L Calcium (8.5-10.1) mg/dL Corrected Calcium (8.5-10.1) mg/dL Total Bilirubin (0.2-1.0) mg/dL AST (15-37) U/L ALT (14-59) U/L Alkaline Phosphatase (46-116) U/L C-Reactive Protein (<=0.9) mg/dL Total Protein (6.4-8.2) g/dL Albumin (3.4-5.0) g/dL Globulin Albumin/Globulin Ratio Lipase (73-393) U/L Urine Color (YELLOW) POC Urine Appearance (CLEAR) POC Urine pH (5.0-8.0) Ur Specific [place] (1.005-1.030) POC Urine Protein (NEGATIVE) POC Ur Glucose (UA) (NEGATIVE) POC Urine Ketones (NEGATIVE) POC Ur Occult Blood (NEGATIVE) POC Urine Nitrite (NEGATIVE) POC Urine Bilirubin (NEGATIVE) POC Urine Urobilinogen (0.2) POC U Leukocyte Esteras (NEGATIVE) Meds: Medications Discontinued Medications Generic Name Dose Route Start Last Admin Trade Name Freq PRN Reason Stop Dose Admin Dextrose/Water 25 ml 06/23/20 19:07 Dextrose 50% In Water IV 06/23/20 19:08 NOW STA Lactated Ringer's 1,000 mls @ 999 mls/hr 06/23/20 16:40 Ringers, Lactated IV 06/23/20 17:40 ONETIME ONE Dextrose/Sodium Chloride 1,000 mls @ 200 mls/hr 06/23/20 19:15 Dextrose 5%-Normal Saline IV ASDIRECTED KATIANA Morphine Sulfate 2 mg 06/23/20 16:42 Morphine IVPUSH 06/23/20 16:43 ONETIME ONE Morphine Sulfate 4 mg 06/23/20 17:12 06/23/20 17:23 Morphine IM 06/23/20 17:13 4 mg ONETIME ONE Administration Ondansetron HCl 4 mg 06/23/20 16:32 Zofran IV 06/23/20 16:33 ONETIME ONE Sodium Chloride 10 ml 06/23/20 16:29 Saline Flush FLUSH ASDIRECTED PRN Keep Vein Open - Radiology Interpretation Free Text/Narrative:: CT abdomen pelvis per radiology shows no acute findings in the abdomen or pelvis to account for the patient's left lower quadrant pain. - Re-Assessments/Exams Free Text/Narrative Re-Assessment/Exam: 06/23/20 23:06 After multiple attempts we are unable to get an IV. On 4 mg of morphine IM. Her urinalysis is negative. Her labs are rather unremarkable otherwise. We did complete a CT abdomen pelvis without contrast as we are unable to get an IV. No acute findings no colitis or diverticulitis. Patient was here she appeared to be in less pain according to the caregiver. She has been drinking while she is here. I explained to the caregiver that I am unsure of what is causing her pain at this time. We will have them use some [id number] pain medicine over the next couple of days if it continues to recheck with primary care clinic. The caregiver is understanding this and her questions are answered. Departure - Departure Time of Disposition: 19:02 Disposition: Home, Self-Care 01 Clinical Impression: Abdominal pain Qualifiers: Abdominal location: left lower quadrant Qualified Code(s): R10.32 - Left lower quadrant pain - Discharge Information Instructions: Abdominal Pain, Adult, [id number] Referrals: Anna Iqbal MD [Primary Care Provider] - Forms: ED Department Discharge Additional Instructions: Increase fluids over the next few days as much as possible. Continue previous therapies. See PCP this week if concerns continue. Return if new or worsening symptoms. Sepsis Event Note (ED) - Evaluation Sepsis Screening Result: No Definite Risk - Focused Exam Vital Signs: Vital Signs Temp Pulse Resp BP Pulse Ox 06/23/20 15:50 96.9 F 74 20 106/35 L 100 - My Orders Last 24 Hours: My Active Orders 06/23/20 16:29 Peripheral IV Insertion Adult [OM.PC] Stat 06/23/20 16:30 Abdomen Pelvis w Cont [CT] Stat - Assessment/Plan Last 24 Hours: My Active Orders 06/23/20 16:29 Peripheral IV Insertion Adult [OM.PC] Stat 06/23/20 16:30 Abdomen Pelvis w Cont [CT] Stat
[2020-06-23] MEDS ORDERED: Sodium Chloride 0.9% 10 ML Syringe FLUSH PRN (16:29)
[2020-06-23] MEDS ORDERED: Ondansetron 4 MG/2 ML SDV IV ONE (16:32)
[2020-06-23] MEDS ORDERED: Lactated Ringers 1,000 ML IV ONE (16:40)
[2020-06-23] MEDS ORDERED: Morphine 2 MG/ML SYRINGE IVPUSH ONE (16:42)
[2020-06-23] MEDS ORDERED: Morphine 2 MG/ML SYRINGE IM ONE (17:12)
[2020-06-23 17:48] LABS: ANION GAP 8.9 mmol/L (10-20); CHLORIDE,CL 102 mmol/L (98-107); SODIUM,NA 135 mmol/L (136-145)
--- NOTE | 2020-06-23 18:34 | CT ---
[id number] CT/CT Abdomen Pelvis WO IV EXAM: CT Abdomen Pelvis WO IV CLINICAL DATA: LLQ PAIN, UNABLE TO GET IV COMPARISON STUDY: None. FINDINGS: Lung bases are clear. Cholelithiasis. No evidence of acute cholecystitis. Liver, spleen, pancreas, adrenal glands, and kidneys are unremarkable. No evidence of urinary tract obstruction. No bowel obstruction or inflammation. No colitis or diverticulitis. Uterus and adnexal regions are unremarkable. Urinary bladder is decompressed, limiting evaluation. IMPRESSION: No acute findings in the abdomen or pelvis to account for patient's left lower quadrant pain. Multiple chronic findings are described above. Richie Mcclure MD 06/23/20 0017 Thank you for allowing us to participate in the care of your patient.
[2020-06-23] MEDS ORDERED: 50% Dextrose in Water 50 ML Syringe IV STA (19:07)
[2020-06-23] MEDS ORDERED: Dextrose 5%-0.9% NaCl 1,000 ML IV SCH (19:15)
== END 2020-06-23 19:15 | disposition home or self-care (01) ==
LOC: VM.ED 15:41
DX: R10.32 Left lower quadrant pain (principal); E03.9 Hypothyroidism, unspecified; E66.9 Obesity, unspecified; Z88.1 Allergy status to other antibiotic agents; Z88.8 Allergy status to other drugs, medicaments and biological substances; R56.9 Unspecified convulsions
CPT/HCPCS: 74176; 80053; 81002; 83605; 83690; 85025; 86140; 96361; 96372; 96374; 96375; 99284; 99284-25; J2270

== ENCOUNTER 2020-10-22 15:14 | Inpatient (IN) | payer MEDICARE, MEDICAID ==
[2020-10-22] MEDS ORDERED: Hypromellose 0.3% Ophth Soln 15 ML Bottle EYEBOTH PRN (15:59)
--- NOTE | 2020-10-22 16:40 | PCM.HP.2 ---
H&P History of Present Illness - General Date of Service: 10/22/20 Admit Problem/Dx: Admission Diagnosis/Problem Admission Diagnosis/Problem Pneumonia Source of Information: Patient, Old Records, Other (caregiver) History Limitations: Reports: Altered Mental Status - History of Present Illness Initial Comments - Free Text/Narative: Ms. Herrno is a 60 yo female with PMH of Down Syndrome, dementia, murmur, hyperlipidemia, hypothyroidism, seizure disorder, chronic leukopenia, and constipation who presented to clinic today for evaluation of a behavior change x 1 week. The patient is not a reliable historian at baseline due to dementia and is less so today due to fatigue. Most of the history comes from her staff member with her today. She has been more tired during the day and is not sleeping well at night. She has been more generally weak and has nearly fallen a few times when walking with her walker. Staff now feel she is afraid to walk with the walker due to these falls and has been crying out at times due to these fears. She has not been eating or drinking well and has lost some weight. She has been walking much slower than usual with an example being that it took her 25 minutes this morning to walk 50 feet. She has not had a fever. No URI symptoms, cough, vomiting, or diarrhea. She has not had any outward symptoms of a UTI. October is a hard month for her every year due to this being when her parents but these symptoms are more than what she has even had in the past. - Related Data Allergies/Adverse Reactions: Allergies Allergy/AdvReac Type Severity Reaction Status Date / Time cephalexin [From Keflex] Allergy Cannot Verified 06/23/20 16:24 Remember clindamycin Allergy Cannot Verified 06/23/20 16:24 Remember phenobarbital Allergy Cannot Verified 06/23/20 16:24 Remember phenytoin [From Dilantin] Allergy Cannot Verified 06/23/20 16:24 Remember Home Medications: Home Meds Cholecalciferol (Vitamin D3) [Vitamin D3] 2,000 unit PO DAILY 03/11/19 [History] Levothyroxine 88 mcg PO ACBREAKFAST 03/11/19 [History] polyethylene glycoL 3350 [MiraLAX] 8.5 gm PO MOWEFR@08 06/23/20 [History] Carboxymethylcellulose Sodium [Refresh Tears] 1 drop OP BID 10/22/20 [History] Carboxymethylcellulose Sodium [Refresh Tears] 1 drop OP Q2H PRN 10/22/20 [History] Divalproex Sodium [Depakote Sprinkle] 500 mg PO DAILY 10/22/20 [History] Divalproex Sodium [Depakote Sprinkle] 750 mg PO BEDTIME 10/22/20 [History] Donepezil [Aricept] 10 mg PO BEDTIME 10/22/20 [History] Non-Formulary Medication [NF Drug] 1 tab PO DAILY 10/22/20 [History] Past Medical History HEENT History: Reports: Cataract, Hard of Hearing, Impaired Vision, Otitis Media, Other (See Below) Other HEENT History: Patient wears hearing aides in both ears. Esotropia of right eye. Astigmatism Cardiovascular History: Reports: Heart Murmur, High Cholesterol, Other (See Below) Other Cardiovascular History: Systolic murmur Respiratory History: Reports: None Gastrointestinal History: Reports: None Genitourinary History: Reports: UTI, Recurrent GROUP BILLING COORDINATOR History: Reports: Other (See Below) Other OB/BYN History: Tight hymenal ring Musculoskeletal History: Reports: None Neurological History: Reports: Alzheimers Disease, Seizure, Other (See Below) (Down syndrome) Psychiatric History: Reports: Other (See Below) Other Psychiatric History: Daytime somnolence Endocrine/Metabolic History: Reports: Hypothyroidism, Obesity/BMI 30+, Other (See Below) Other Endocrine/Metabolic History: Abnormal weight loss Hematologic History: Reports: Other (See Below) (leukopenia) Immunologic History: Reports: None Oncologic (Cancer) History: Reports: None Dermatologic History: Reports: None - Infectious Disease History Infectious Disease History: Reports: None - Past Surgical History HEENT Surgical History: Reports: Adenoidectomy, Tonsillectomy, Other (See Below) Other HEENT Surgeries/Procedures: Tympanomastoidectomy. Henangioma (lesion removed from right upper eyelid GI Surgical History: Reports: Other (See Below) Other GI Surgeries/Procedures: Colon cancer screening Female Surgical History: Reports: Tubal Ligation Social & Family History - Family History Oncologic: Reports: Prostate - Tobacco Use Tobacco Use Status *Q: Never Tobacco User - Alcohol Use Alcohol Use History: No Alcohol Use in Last Twelve Months: No - Recreational Drug Use Recreational Drug Use: No - Living Situation & Occupation Living situation: Reports: Single, Assisted Living ([facility] apartment) Occupation: Retired H&P Review of Systems - Review of Systems: Review Of Systems: Unable To Obtain Reason Not Obtained: dementia/delirium Exam - Exam Exam: See Below - Exam General: Other (Sleepy but does alert to voice) HEENT: Conjunctiva Clear, Mucosa Moist & [place], Posterior Pharynx Clear, Pupils Equal, Pupils Reactive Neck: Supple, Trachea Midline. No: Lymphadenopathy, Thyromegaly Lungs: Clear to Auscultation, Normal Respiratory Effort Cardiovascular: Regular Rate, Regular Rhythm, Normal S1, Normal S2 GI/Abdominal Exam: Normal Bowel Sounds, Soft, Non-Tender, No Organomegaly, No Distention, No Mass Extremities: Normal Inspection, Non-Tender, No Pedal Edema, Normal Capillary Refill Peripheral Pulses: 2+: Radial (L), Radial (R) Skin: Warm, Dry, Intact - Patient Data Lab Results Last 24 hrs: Laboratory Results - last 24 hr 10/22/20 Range/Units 16:04 SARS CoV-2 RNA Rapid СВЕТЛАНА Negative (NEGATIVE) - Problem List (1) Pneumonia SNOMED Code(s): 131564791 ICD Code: J18.9 - PNEUMONIA, UNSPECIFIED ORGANISM Status: Acute Current Visit: Yes Qualifiers: Pneumonia type: due to unspecified organism Laterality: right Lung location: lower lobe of lung Qualified Code(s): J18.9 - Pneumonia, unspecified organism (2) Acute kidney injury SNOMED Code(s): 86080229, 79784908 ICD Code: N17.9 - ACUTE KIDNEY FAILURE, UNSPECIFIED Status: Acute Current Visit: Yes (3) Dehydration SNOMED Code(s): 61424816 ICD Code: E86.0 - DEHYDRATION Status: Acute Current Visit: Yes (4) Anemia SNOMED Code(s): 903090740 ICD Code: D64.9 - ANEMIA, UNSPECIFIED Status: Acute Current Visit: Yes Qualifiers: Anemia type: unspecified type Qualified Code(s): D64.9 - Anemia, unspecified (5) Leukopenia SNOMED Code(s): 54068912, 669359155 ICD Code: D72.819 - DECREASED WHITE BLOOD CELL COUNT, UNSPECIFIED Status: Chronic Current Visit: Yes Qualifiers: Leukopenia type: unspecified Qualified Code(s): D72.819 - Decreased white blood cell count, unspecified (6) Hypothyroid SNOMED Code(s): 58020785 ICD Code: E03.9 - HYPOTHYROIDISM, UNSPECIFIED Status: Chronic Current Visit: Yes Qualifiers: Hypothyroidism type: acquired Qualified Code(s): E03.9 - Hypothyroidism, unspecified (7) Seizure disorder SNOMED Code(s): 757126597 ICD Code: G40.909 - EPILEPSY, UNSP, NOT INTRACTABLE, WITHOUT STATUS EPILEPTICUS Status: Chronic Current Visit: Yes (8) Down syndrome SNOMED Code(s): 11263117 ICD Code: Q90.9 - DOWN SYNDROME, UNSPECIFIED Status: Chronic Current Visit: Yes (9) Alzheimer disease SNOMED Code(s): 16778995 ICD Code: G30.9 - ALZHEIMER'S DISEASE, UNSPECIFIED; F02.80 - DEMENTIA IN OTH DISEASES CLASSD ELSWHR W/O BEHAVRL DISTURB Status: Chronic Current Visit: Yes Qualifiers: Alzheimer's disease onset: early-onset Dementia behavioral disturbance: without behavioral disturbance Qualified Code(s): G30.0 - Alzheimer's disease with early onset; F02.80 - Dementia in other diseases classified elsewhere without behavioral disturbance Problem List Initiated/Reviewed/Updated: Yes Orders Last 24hrs: Active Orders 24 hr Category Date Time Status Patient Status [ADT] Routine ADT 10/22/20 15:53 Ordered Dietary Supplements [RC] BIDMEALS Care 10/22/20 15:59 Ordered Notify Provider Vital Signs [RC] ASDIRECTED Care 10/22/20 15:54 Ordered Oxygen Therapy [RC] PRN Care 10/22/20 15:53 Ordered Up With Assistance [RC] ASDIRECTED Care 10/22/20 15:53 Ordered VTE/DVT Education [RC] PER UNIT ROUTINE Care 10/22/20 15:53 Ordered Vital Signs [RC] Q4H Care 10/22/20 15:53 Ordered Regular Diet [DIET] Diet 10/22/20 Dinner Ordered BASIC METABOLIC PANEL,BMP [CHEM] Routine Lab 10/23/20 05:11 Ordered C-REACTIVE PROTEIN [CHEM] Routine Lab 10/23/20 05:11 Ordered CBC WITH AUTO DIFF [HEME] Routine Lab 10/23/20 05:11 Ordered SEDIMENTATION RATE AUTO [HEME] Routine Lab 10/23/20 05:11 Ordered Acetaminophen [TylenoL] Med 10/22/20 15:53 Ordered 650 mg PO Q4H PRN Azithromycin [Zithromax] 500 mg Med 10/22/20 16:00 Ordered Sodium Chloride 0.9% [Normal Saline (AdvBag)] 250 ml IV Q24H Carboxymethylcellulose Sodium [Refresh Tears 0.5%] Med 10/22/20 20:00 Ordered 1 drop EYEBOTH BID Carboxymethylcellulose Sodium [Refresh Tears 0.5%] Med 10/22/20 15:59 Ordered 1 drop EYEBOTH Q2HR PRN Divalproex Sodium [Depakote Sprinkle] Med 10/23/20 08:00 Ordered 500 mg PO DAILY Divalproex Sodium [Depakote Sprinkle] Med 10/22/20 20:00 Ordered 750 mg PO BEDTIME Donepezil [Aricept] Med 10/22/20 20:00 Ordered 10 mg PO BEDTIME Levothyroxine Med 10/23/20 07:00 Ordered 88 mcg PO ACBREAKFAST Sodium Chloride 0.9% @ 125 MLS/HR (1000ml) Med 10/22/20 16:00 Ordered Sodium Chloride 0.9% [Normal Saline] 1,000 ml IV ASDIRECTED cefTRIAXone [Rocephin] Med 10/22/20 16:00 Ordered 1 gm IVPUSH Q24H polyethylene glycoL 3350 [MiraLAX] Med 10/23/20 15:59 Ordered 17 gm PO MOWEFR Resuscitation Status Routine Resus Stat 10/22/20 15:53 Ordered Medication Orders Acetaminophen (Tylenol) 650 mg PO Q4H PRN PRN Reason: Pain (Mild 1-3)/fever Artificial Tears (Genteal Mild To Moderate Ophth Soln) 0 ml EYEBOTH BID [place] Artificial Tears (Genteal Mild To Moderate Ophth Soln) 0 ml EYEBOTH Q2HR PRN PRN Reason: Dry Eyes Ceftriaxone Sodium (Rocephin) 1 gm IVPUSH Q24H [place] Divalproex Sodium (Depakote Sprinkle) 500 mg PO DAILY [place] Divalproex Sodium (Depakote Sprinkle) 750 mg PO BEDTIME [place] Donepezil HCl (Aricept) 10 mg PO BEDTIME [place] Sodium Chloride (Normal Saline) 1,000 mls @ 125 mls/hr IV ASDIRECTED [place] Azithromycin 500 mg/ Sodium (Chloride) 250 mls @ 250 mls/hr IV Q24H [place] Levothyroxine Sodium (Synthroid) 88 mcg PO ACBREAKFAST [place] Polyethylene Glycol (Miralax) 17 gm PO MOWEFR [facility] Assessment/Plan Comment:: 60 yo female admitted with community acquired pneumonia after presenting to clinic for evaluation of generalized weakness. #1 Community Acquired Pneumonia - COVID negative on admission. - CURB-65 score of 2 (elevated BUN, confusion); therefore, with this and her GWYN, admission was recommended. Caregiver and sister in agreement with this. - Has a significant infiltrate in the RLL. No known prior history of aspiration issues. - Therefore, will treat with ceftriaxone and azithromycin as per protocol. Patient has a h/o of cephalexin allergy, which is a rash. Should be ok to do ceftriaxone but monitor closely. - Does not meet sepsis criteria; therefore, lactic acid and blood cultures not done. - If patient is febrile during admission, will obtain blood cultures and lactic acid at that time. #2 GWYN, secondary to #3 #3 Dehydration - PO intake significantly decreased x 1 week. - Creatinine up to 1.4 with baseline of 1.09. - Will give normal saline overnight. - Patient can also eat/drink ad ayan. #4 Anemia #5 Leukopenia - Patient has a long history of leukopenia but has never had anemia. - Possibly related to acute illness. - Will monitor daily. - Will also check iron and vitamin studies with labs tomorrow am. #6 Hypothyroidism #7 Seizure Disorder #8 Down Syndrome #9 Dementia - TSH recently in range. - Continue home medications. Patient will be admitted to acute for IV antibiotics and IV fluids - anticipate admission for 2-3 days with likely d/c home later this week. Sister Jennifer is updated regarding patient status. Currently in the process of obtaining guardianship. Code status is DNR/DNI - discussed with sister and soon-to-be guardian on admission. Anticipate lovenox vs heparin for VTE prophylaxis dependi ng on creatinine results tomorrow.
[2020-10-22] MEDS ORDERED: Azithromycin 500 MG in Sodium Chloride 0.9% 250 ML IV SCH (17:00)
[2020-10-22] MEDS ORDERED: cefTRIAXone 1 GM Vial IVPUSH SCH (17:00)
[2020-10-22] MEDS: Sodium Chloride 0.9% 1,000 ML IV SCH (19:35)
[2020-10-22] MEDS: cefTRIAXone 1 GM Vial IVPUSH SCH (19:37)
[2020-10-22] MEDS: Azithromycin 500 MG in Sodium Chloride 0.9% 250 ML IV SCH (19:45)
[2020-10-22] MEDS: Divalproex Sodium Delayed-Release 125 MG Cap.Sprink PO SCH (20:05)
[2020-10-22] MEDS: Donepezil 5 MG Tab PO SCH (20:06)
[2020-10-22] MEDS: Hypromellose 0.3% Ophth Soln 15 ML Bottle EYEBOTH SCH (20:06)
[2020-10-23] MEDS: Sodium Chloride 0.9% 1,000 ML IV SCH ×2 (04:27→18:17)
[2020-10-23] MEDS: Levothyroxine 88 MCG Tab PO SCH (06:44)
[2020-10-23 06:49] LABS: ANION GAP 7.7 mmol/L (10-20)
[2020-10-23] MEDS: Polyethylene Glycol 3350 Powder 17 GM Packet PO SCH (08:38)
[2020-10-23] MEDS: Divalproex Sodium Delayed-Release 125 MG Cap.Sprink PO SCH ×2 (08:39→19:52)
[2020-10-23] MEDS: Hypromellose 0.3% Ophth Soln 15 ML Bottle EYEBOTH SCH ×2 (08:39→19:52)
[2020-10-23] MEDS: Acetaminophen 325 MG Tab PO PRN (08:39)
--- NOTE | 2020-10-23 09:38 | PCM.PN ---
- General Info Date of Service: 10/23/20 Subjective Update: 60 yo female hospital day #2 admitted with GWYN and pneumonia. Patient does not answer questions well at baseline due to underlying dementia/Down Syndrome. Nursing staff deny any concerns at this time. Uneventful night. Patient has not had a BM since admission. - Review of Systems Systems Review Comment:: unable to assess due to dementia/Down Syndrome - Patient Data Vitals - Most Recent: Last Vital Signs Temp 37.1 C 10/23/20 05:25 Pulse 72 10/23/20 05:25 Resp 18 10/23/20 05:25 BP 114/43 L 10/23/20 05:25 Pulse Ox 95 10/23/20 05:25 Weight - Most Recent: 61.235 kg I&O - Last 24 Hours: Intake & Output 10/22/20 10/23/20 10/23/20 22:59 06:59 14:59 Intake Total 1539 100 Balance 1539 100 Lab Results Last 24 Hours: Laboratory Results - last 24 hr 10/22/20 10/23/20 10/23/20 Range/Units 16:04 06:17 06:17 WBC 6.7 (4.0-10.0) x10^3/uL RBC 2.76 L (4.00-5.50) x10^6/uL Hgb 9.8 L D (12.0-16.0) g/dL Hct 30.2 L (33.0-47.0) % MCV 109.4 H D (78.0-93.0) fL MCH 35.5 H (26.0-32.0) pg MCHC 32.5 (32.0-36.0) g/dL RDW Coeff of Ester 13.9 (10.0-15.0) % Plt Count 285 D (130-400) x10^3/uL Add Manual Diff Yes Neutrophils % (Manual) 78 (50-80) % Band Neutrophils % 3 (0-6) % Lymphocytes % (Manual) 10 L (25-50) % Monocytes % (Manual) 7 (2-11) % Eosinophils % (Manual) 1 (0-4) % Metamyelocytes % 1 H (0) % Platelet Estimate Adequate Giant Platelets Few H Anisocytosis 1+ slight H Macrocytosis 2+ moderate H ESR 72 H (0-20) mm/hr Sodium 142 (136-145) mmol/L Potassium 3.7 (3.5-5.1) mmol/L Chloride 106 (98-107) mmol/L Carbon Dioxide 32 (21-32) mmol/L Anion Gap 7.7 L (10-20) mmol/L BUN 32 H (7-18) mg/dL Creatinine 1.3 H (0.55-1.02) mg/dL Est Cr Clr Drug Dosing 33.47 mL/min Estimated GFR (MDRD) 42 Glucose 89 (74-106) mg/dL Calcium 7.9 L (8.5-10.1) mg/dL C-Reactive Protein 87.3 H (<=0.9) mg/dL SARS CoV-2 RNA Rapid СВЕТЛАНА Negative (NEGATIVE) Med Orders - Current: Current Medications Acetaminophen (Tylenol) 650 mg PO Q4H PRN PRN Reason: Pain (Mild 1-3)/fever Last Admin: 10/23/20 08:39 Dose: 650 mg Documented by: Artificial Tears (Genteal Mild To Moderate Ophth Soln) 0 ml EYEBOTH BID [facility] Last Admin: 10/23/20 08:39 Dose: 1 drop Documented by: Artificial Tears (Genteal Mild To Moderate Ophth Soln) 0 ml EYEBOTH Q2HR PRN PRN Reason: Dry Eyes Ceftriaxone Sodium (Rocephin) 1 gm IVPUSH Q24H [facility] Last Admin: 10/22/20 19:37 Dose: 1 gm Documented by: Divalproex Sodium (Depakote Sprinkle) 500 mg PO DAILY [facility] Last Admin: 10/23/20 08:39 Dose: 500 mg Documented by: Divalproex Sodium (Depakote Sprinkle) 750 mg PO BEDTIME [facility] Last Admin: 10/22/20 20:05 Dose: 750 mg Documented by: Donepezil HCl (Aricept) 10 mg PO BEDTIME [facility] Last Admin: 10/22/20 20:06 Dose: 10 mg Documented by: Sodium Chloride (Normal Saline) 1,000 mls @ 125 mls/hr IV ASDIRECTED [facility] Last Admin: 10/23/20 04:27 Dose: 125 mls/hr Documented by: Azithromycin 500 mg/ Sodium (Chloride) 250 mls @ 250 mls/hr IV Q24H [facility] Last Admin: 10/22/20 19:45 Dose: 250 mls/hr Documented by: Levothyroxine Sodium (Synthroid) 88 mcg PO ACBREAKFAST [facility] Last Admin: 10/23/20 06:44 Dose: 88 mcg Documented by: Polyethylene Glycol (Miralax) 8.5 gm PO MoWeFr@0900 [facility] Last Admin: 10/23/20 08:38 Dose: 8.5 gm Documented by: Discontinued Medications Ceftriaxone Sodium (Rocephin) 1 gm IVPUSH Q24H [facility] Last Admin: 10/22/20 19:36 Dose: Not Given Documented by: Azithromycin 500 mg/ Sodium (Chloride) 250 mls @ 250 mls/hr IV Q24H [facility] Last Admin: 10/22/20 19:36 Dose: Not Given Documented by: - Exam General: Alert, Cooperative, No Acute Distress HEENT: Mucous Membr. Moist/[place] Neck: Supple, Trachea Midline, No Thyromegaly. No: Lymphadenopathy Lungs: Normal Respiratory Effort, Crackles (right lower lung field) Cardiovascular: Regular Rate, Regular Rhythm, No Murmurs GI/Abdominal Exam: Normal Bowel Sounds, Soft, Non-Tender, No Organomegaly, No Distention, No Mass Extremities: Normal Inspection, Non-Tender, No Pedal Edema, Normal Capillary Refill Peripheral Pulses: 2+: Radial (L), Radial (R) Skin: Warm, Dry, Intact Neurological: No New Focal Deficit Sepsis Event Note - Evaluation Sepsis Screening Result: No Definite Risk - Focused Exam Vital Signs: Vital Signs Temp Pulse Resp BP Pulse Ox 10/23/20 05:25 37.1 C 72 18 114/43 L 95 10/23/20 01:35 36.7 C 65 20 95/45 L 94 L 10/22/20 22:41 60 18 95 10/22/20 22:00 37.3 C 68 22 H 99/45 L 91 L - Problem List & Annotations (1) Pneumonia SNOMED Code(s): 556393319 Code(s): J18.9 - PNEUMONIA, UNSPECIFIED ORGANISM Status: Acute Current Visit: Yes Qualifiers: Pneumonia type: due to unspecified organism Laterality: right Lung location: lower lobe of lung Qualified Code(s): J18.9 - Pneumonia, unspecified organism (2) Acute kidney injury SNOMED Code(s): 42402956, 18631400 Code(s): N17.9 - ACUTE KIDNEY FAILURE, UNSPECIFIED Status: Acute Current Visit: Yes (3) Dehydration SNOMED Code(s): 89216557 Code(s): E86.0 - DEHYDRATION Status: Acute Current Visit: Yes (4) Anemia SNOMED Code(s): 314250258 Code(s): D64.9 - ANEMIA, UNSPECIFIED Status: Acute Current Visit: Yes Qualifiers: Anemia type: unspecified type Qualified Code(s): D64.9 - Anemia, unspecified (5) Leukopenia SNOMED Code(s): 64879546, 745757715 Code(s): D72.819 - DECREASED WHITE BLOOD CELL COUNT, UNSPECIFIED Status: Chronic Current Visit: Yes Qualifiers: Leukopenia type: unspecified Qualified Code(s): D72.819 - Decreased white blood cell count, unspecified (6) Hypothyroid SNOMED Code(s): 12625680 Code(s): E03.9 - HYPOTHYROIDISM, UNSPECIFIED Status: Chronic Current Visit: Yes Qualifiers: Hypothyroidism type: acquired Qualified Code(s): E03.9 - Hypothyroidism, unspecified (7) Seizure disorder SNOMED Code(s): 931564603 Code(s): G40.909 - EPILEPSY, UNSP, NOT INTRACTABLE, WITHOUT STATUS EPILEPTICUS Status: Chronic Current Visit: Yes (8) Down syndrome SNOMED Code(s): 78002163 Code(s): Q90.9 - DOWN SYNDROME, UNSPECIFIED Status: Chronic Current Visit: Yes (9) Alzheimer disease SNOMED Code(s): 44310914 Code(s): G30.9 - ALZHEIMER'S DISEASE, UNSPECIFIED; F02.80 - DEMENTIA IN OTH DISEASES CLASSD ELSWHR W/O BEHAVRL DISTURB Status: Chronic Current Visit: Yes Qualifiers: Alzheimer's disease onset: early-onset Dementia behavioral disturbance: without behavioral disturbance Qualified Code(s): G30.0 - Alzheimer's disease with early onset; F02.80 - Dementia in other diseases classified elsewhere without behavioral disturbance - Problem List Review Problem List Initiated/Reviewed/Updated: Yes - My Orders Last 24 Hours: My Active Orders 10/22/20 15:53 Patient Status [ADT] Routine Oxygen Therapy [RC] .PRN Up With Assistance [RC] 08,20 Vital Signs [RC] 02,06,10,14,18,22 Acetaminophen [TylenoL] 650 mg PO Q4H PRN Resuscitation Status Routine 10/22/20 15:54 Notify Provider Vital Signs [RC] 02,06,10,14,18,22 10/22/20 15:59 Dietary Supplements [RC] 0730,1700 Hypromellose [GenTeal Mild to Moderate Ophth Soln] 0 ml EYEBOTH Q2HR PRN 10/22/20 16:00 Sodium Chloride 0.9% [Normal Saline] 1,000 ml IV ASDIRECTED 10/22/20 Dinner Regular Diet [DIET] 10/22/20 19:15 Azithromycin [Zithromax] 500 mg Sodium Chloride 0.9% [Normal Saline (AdvBag)] 250 ml IV Q24H cefTRIAXone [Rocephin] 1 gm IVPUSH Q24H 10/22/20 20:00 Divalproex Sodium [Depakote Sprinkle] 750 mg PO BEDTIME Donepezil [Aricept] 10 mg PO BEDTIME Hypromellose [GenTeal Mild to Moderate Ophth Soln] 0 ml EYEBOTH BID 10/23/20 07:00 Levothyroxine [Synthroid] 88 mcg PO ACBREAKFAST 10/23/20 08:00 Divalproex Sodium [Depakote Sprinkle] 500 mg PO DAILY 10/23/20 08:37 Fecal Occult Bld Diag Imm [RC] ASDIRECTED 10/23/20 09:00 polyethylene glycoL 3350 [MiraLAX] 8.5 gm PO MoWeFr@0900 10/24/20 05:11 BASIC METABOLIC PANEL,BMP [CHEM] Routine C-REACTIVE PROTEIN [CHEM] Routine CBC WITH AUTO DIFF [HEME] Routine - Assessment Assessment:: 60 yo female hospital day #2 admitted with GWYN and pneumonia. Patient more alert than yesterday but still not back to baseline. Labs show decreasing hemoglobin, increasing inflammatory markers, and slight improvement in her creatinine. - Plan Plan:: #1 Community Acquired Pneumonia - COVID negative on admission. - CURB-65 score of 2 (elevated BUN, confusion); therefore, patient admitted for initial therapies. - Has a significant infiltrate in the RLL. No known prior history of aspiration issues. Radiologist recommending CT chest due to appearance on CXR. Unclear how patient would tolerate this. Therefore, will treat with IV antibiotics and repeat CXR tomorrow. Depending on those results, can reconsider CT chest. - Continue ceftriaxone and azithromycin. Has tolerated the ceftriaxone without any issues despite reported history of cephalexin allergy. - Does not meet sepsis criteria; therefore, lactic acid and blood cultures not done. If patient is febrile during admission, will obtain blood cultures and lactic acid at that time. #2 GWYN, secondary to #3 #3 Dehydration - Creatinine on admission up to 1.4 with baseline of 1.09. Improved slightly to 1.3 today. - Continue IV fluids. - Patient can also eat/drink ad ayan. #4 Anemia #5 Leukopenia - Patient has a long history of leukopenia but has never had anemia. WBC now normal, which is consistent with her known infection. - Possibly related to acute illness. Now with contribution from hemodilution. - However, will check a stool occult blood. Will also check folate, B12, and iron studies with labs tomorrow. - Will monitor daily. #6 Hypothyroidism #7 Seizure Disorder #8 Down Syndrome #9 Dementia - TSH recently in range. - Continue home medications. Patient will remain on acute today for IV antibiotics and IV fluids - anticipate d/c home later this week. Code status is DNR/DNI - discussed with sister and soon-to-be guardian on admission. Given decreasing hemoglobin, will hold off on pharmacologic VTE prophylaxis. Will reassess daily. SCD's for now.
[2020-10-23] MEDS ORDERED: Sodium Chloride 0.9% 500 ML IV ONE (10:01)
[2020-10-23] MEDS: cefTRIAXone 1 GM Vial IVPUSH SCH (18:52)
[2020-10-23] MEDS: Azithromycin 500 MG in Sodium Chloride 0.9% 250 ML IV SCH (18:53)
[2020-10-23] MEDS: Donepezil 5 MG Tab PO SCH (19:52)
[2020-10-24] MEDS: Sodium Chloride 0.9% 1,000 ML IV SCH ×2 (05:31→18:52)
[2020-10-24] MEDS: Levothyroxine 88 MCG Tab PO SCH (06:05)
[2020-10-24 07:20] LABS: ANION GAP 7.6 mmol/L (10-20)
--- NOTE | 2020-10-24 08:34 | PCM.PN ---
- General Info Date of Service: 10/24/20 Subjective Update: 60 yo female hospital day #3 admitted with GWYN and pneumonia. Patient does not answer questions. Did have an episode of hypotension yesterday morning that responded well to an IV fluid bolus. Had an uneventful night. - Review of Systems Systems Review Comment:: dementia/Down Syndrome - Patient Data Vitals - Most Recent: Last Vital Signs Temp 36.6 C 10/24/20 05:11 Pulse 63 10/24/20 05:11 Resp 18 10/24/20 05:11 BP 121/55 L 10/24/20 05:11 Pulse Ox 94 L 10/24/20 05:11 Weight - Most Recent: 61.235 kg I&O - Last 24 Hours: Intake & Output 10/23/20 10/24/20 10/24/20 22:59 06:59 14:59 Intake Total 2320 1450 Balance 2320 1450 Lab Results Last 24 Hours: Laboratory Results - last 24 hr 10/24/20 10/24/20 10/24/20 Range/Units 06:33 06:33 06:33 WBC 6.1 (4.0-10.0) x10^3/uL RBC 2.69 L (4.00-5.50) x10^6/uL Hgb 9.5 L (12.0-16.0) g/dL Hct 29.9 L (33.0-47.0) % MCV 111.2 H (78.0-93.0) fL MCH 35.3 H (26.0-32.0) pg MCHC 31.8 L (32.0-36.0) g/dL RDW Coeff of Ester 14.3 (10.0-15.0) % Plt Count 303 (130-400) x10^3/uL Add Manual Diff Yes Neutrophils % (Manual) 73 (50-80) % Band Neutrophils % 2 (0-6) % Lymphocytes % (Manual) 13 L (25-50) % Monocytes % (Manual) 6 (2-11) % Metamyelocytes % 6 H (0) % Platelet Estimate Adequate Hypochromasia 1+ slight H Macrocytosis Moderate Spherocytes 1+ slight H Sodium 146 H (136-145) mmol/L Potassium 3.6 (3.5-5.1) mmol/L Chloride 109 H (98-107) mmol/L Carbon Dioxide 33 H (21-32) mmol/L Anion Gap 7.6 L (10-20) mmol/L BUN 19 H (7-18) mg/dL Creatinine 1.1 H (0.55-1.02) mg/dL Est Cr Clr Drug Dosing 39.55 mL/min Estimated GFR (MDRD) 51 Glucose 85 (74-106) mg/dL Calcium 8.0 L (8.5-10.1) mg/dL Iron 29 L (50-170) ug/dL TIBC 116 L (250-450) ug/dL % Saturation 25.0 (20.0-50.0) % C-Reactive Protein 20.2 H (<=0.9) mg/dL Med Orders - Current: Current Medications Acetaminophen (Tylenol) 650 mg PO Q4H PRN PRN Reason: Pain (Mild 1-3)/fever Last Admin: 10/23/20 08:39 Dose: 650 mg Documented by: Artificial Tears (Genteal Mild To Moderate Ophth Soln) 0 ml EYEBOTH BID [facility] Last Admin: 10/23/20 19:52 Dose: 1 drop Documented by: Artificial Tears (Genteal Mild To Moderate Ophth Soln) 0 ml EYEBOTH Q2HR PRN PRN Reason: Dry Eyes Ceftriaxone Sodium (Rocephin) 1 gm IVPUSH Q24H [facility] Last Admin: 10/23/20 18:52 Dose: 1 gm Documented by: Divalproex Sodium (Depakote Sprinkle) 500 mg PO DAILY [facility] Last Admin: 10/23/20 08:39 Dose: 500 mg Documented by: Divalproex Sodium (Depakote Sprinkle) 750 mg PO BEDTIME [facility] Last Admin: 10/23/20 19:52 Dose: 750 mg Documented by: Donepezil HCl (Aricept) 10 mg PO BEDTIME [facility] Last Admin: 10/23/20 19:52 Dose: 10 mg Documented by: Azithromycin 500 mg/ Sodium (Chloride) 250 mls @ 250 mls/hr IV Q24H [facility] Last Admin: 10/23/20 18:53 Dose: 250 mls/hr Documented by: Levothyroxine Sodium (Synthroid) 88 mcg PO ACBREAKFAST [facility] Last Admin: 10/24/20 06:05 Dose: 88 mcg Documented by: Polyethylene Glycol (Miralax) 8.5 gm PO MoWeFr@0900 [facility] Last Admin: 10/23/20 08:38 Dose: 8.5 gm Documented by: Discontinued Medications Ceftriaxone Sodium (Rocephin) 1 gm IVPUSH Q24H [facility] Last Admin: 10/22/20 19:36 Dose: Not Given Documented by: Sodium Chloride (Normal Saline) 1,000 mls @ 125 mls/hr IV ASDIRECTED [facility] Last Admin: 10/24/20 05:31 Dose: 125 mls/hr Documented by: Azithromycin 500 mg/ Sodium (Chloride) 250 mls @ 250 mls/hr IV Q24H [facility] Last Admin: 10/22/20 19:36 Dose: Not Given Documented by: Sodium Chloride (Normal Saline) 500 mls @ 500 mls/hr IV ONETIME ONE Stop: 10/23/20 11:00 Last Admin: 10/23/20 10:07 Dose: 500 mls/hr Documented by: - Exam General: Alert, Cooperative, No Acute Distress HEENT: Mucous Membr. Moist/[place] Neck: Supple, Trachea Midline, No Thyromegaly. No: Lymphadenopathy Lungs: Normal Respiratory Effort, Crackles (RLL) Cardiovascular: Regular Rate, Regular Rhythm, No Murmurs GI/Abdominal Exam: Normal Bowel Sounds, Soft, Non-Tender, No Organomegaly, No Distention, No Mass Extremities: Non-Tender, No Pedal Edema Peripheral Pulses: 2+: Radial (L), Radial (R) Skin: Warm, Dry, Intact Neurological: No New Focal Deficit Sepsis Event Note - Evaluation Sepsis Screening Result: No Definite Risk - Focused Exam Vital Signs: Vital Signs Temp Pulse Resp BP Pulse Ox 10/24/20 05:11 36.6 C 63 18 121/55 L 94 L 10/24/20 02:00 36.7 C 65 18 96/48 L 10/23/20 22:00 36.7 C 81 19 99/49 L 93 L - Problem List & Annotations (1) Pneumonia SNOMED Code(s): 972062438 Code(s): J18.9 - PNEUMONIA, UNSPECIFIED ORGANISM Status: Acute Current Visit: Yes Qualifiers: Pneumonia type: due to unspecified organism Laterality: right Lung location: lower lobe of lung Qualified Code(s): J18.9 - Pneumonia, unspecified organism (2) Acute kidney injury SNOMED Code(s): 25492548, 98353975 Code(s): N17.9 - ACUTE KIDNEY FAILURE, UNSPECIFIED Status: Acute Current Visit: Yes (3) Dehydration SNOMED Code(s): 27805189 Code(s): E86.0 - DEHYDRATION Status: Acute Current Visit: Yes (4) Anemia SNOMED Code(s): 835822343 Code(s): D64.9 - ANEMIA, UNSPECIFIED Status: Acute Current Visit: Yes Qualifiers: Anemia type: unspecified type Qualified Code(s): D64.9 - Anemia, unspecified (5) Leukopenia SNOMED Code(s): 33907774, 332812808 Code(s): D72.819 - DECREASED WHITE BLOOD CELL COUNT, UNSPECIFIED Status: Chronic Current Visit: Yes Qualifiers: Leukopenia type: unspecified Qualified Code(s): D72.819 - Decreased white blood cell count, unspecified (6) Hypothyroid SNOMED Code(s): 20875657 Code(s): E03.9 - HYPOTHYROIDISM, UNSPECIFIED Status: Chronic Current Visit: Yes Qualifiers: Hypothyroidism type: acquired Qualified Code(s): E03.9 - Hypothyroidism, unspecified (7) Seizure disorder SNOMED Code(s): 905926279 Code(s): G40.909 - EPILEPSY, UNSP, NOT INTRACTABLE, WITHOUT STATUS EPILEPTICUS Status: Chronic Current Visit: Yes (8) Down syndrome SNOMED Code(s): 75288234 Code(s): Q90.9 - DOWN SYNDROME, UNSPECIFIED Status: Chronic Current Visit: Yes (9) Alzheimer disease SNOMED Code(s): 95951413 Code(s): G30.9 - ALZHEIMER'S DISEASE, UNSPECIFIED; F02.80 - DEMENTIA IN OTH DISEASES CLASSD ELSWHR W/O BEHAVRL DISTURB Status: Chronic Current Visit: Yes Qualifiers: Alzheimer's disease onset: early-onset Dementia behavioral disturbance: without behavioral disturbance Qualified Code(s): G30.0 - Alzheimer's disease with early onset; F02.80 - Dementia in other diseases classified elsewhere without behavioral disturbance - Problem List Review Problem List Initiated/Reviewed/Updated: Yes - My Orders Last 24 Hours: My Active Orders 10/23/20 08:00 Divalproex Sodium [Depakote Sprinkle] 500 mg PO DAILY 10/23/20 09:00 polyethylene glycoL 3350 [MiraLAX] 8.5 gm PO MoWeFr@0900 10/23/20 09:39 Antiembolic Devices [RC] 08,20 Sequential Compression Device [OM.PC] Routine VTE Pharmacological Contraindications [AST] Click To Edit 10/23/20 11:03 OT Evaluation and Treatment [CONS] Routine PT Evaluation and Treatment [CONS] Routine 10/24/20 06:33 FOLATE [REF] Routine VITAMIN B12 [REF] Routine 10/24/20 08:11 Chest 2V [CR] Routine - Assessment Assessment:: 60 yo female hospital day #3 admitted with GWYN and pneumonia. Patient mentation back to baseline but she is still quite weak. Labs stable/improved today. - Plan Plan:: #1 Community Acquired Pneumonia - COVID negative on admission. - CURB-65 score of 2 (elevated BUN, confusion); therefore, patient admitted for initial therapies. - Has a significant infiltrate in the RLL. No known prior history of aspiration issues. Radiologist recommending CT chest due to appearance on CXR. Unclear how patient would tolerate this. Therefore, repeat CXR today. Depending on those results, can reconsider CT chest. - Continue ceftriaxone and azithromycin. Depending on CXR findings today, will tentatively plan to transition to oral antibiotics. - Does not meet sepsis criteria; therefore, lactic acid and blood cultures not done. If patient is febrile during admission, will obtain blood cultures and lactic acid at that time. #2 GWYN, secondary to #3 #3 Dehydration - Creatinine to 1.1 today from 1.4 on admission and 1.3 yesterday. - Will d/c IV fluids. - Patient can also eat/drink ad ayan. #4 Anemia #5 Leukopenia - Patient has a long history of leukopenia but has never had anemia. WBC improving. - Hgb stable today. - Stool occult blood negative yesterday. Folate, B12, and iron studies pending. - Will monitor daily. #6 Hypothyroidism #7 Seizure Disorder #8 Down Syndrome #9 Dementia - TSH recently in range. - Continue home medications. Patient will remain on acute today - possible transition to swing bed tomorrow or Wednesday depending on CXR findings today. Code status is DNR/DNI - discussed with sister and soon-to-be guardian on admission. Continue SCD's - pharmacologic VTE prophylaxis held in light of acute anemia.
--- NOTE | 2020-10-24 09:17 | CR ---
[id number] RAD/RAD Chest PA or AP 1V EXAM: SINGLE VIEW CHEST. INDICATION: FOLLOW-UP PNEUMONIA COMPARISON: CORRELATION IS MADE WITH APRIL 04, 2019 FINDINGS: An extensive infiltrate is seen with a moderate right-sided effusion. Follow up suggested to rule out underlying mass. The left lung is clear The cardiac silhouette is stable IMPRESSION: PNEUMONIA AND EFFUSION AT RIGHT LUNG BASE Anderson Villanueva MD 10/24/20 0915 Thank you for allowing us to participate in the care of your patient.
[2020-10-24] MEDS: Divalproex Sodium Delayed-Release 125 MG Cap.Sprink PO SCH ×2 (10:39→19:48)
[2020-10-24] MEDS: Hypromellose 0.3% Ophth Soln 15 ML Bottle EYEBOTH SCH ×2 (10:41→19:50)
--- NOTE | 2020-10-24 13:50 | CT ---
[id number] CT/CT Chest WO IV Exam: CT Chest WO IV Clinical Data: COMPLETE DIFFUSION QUESTION OF UNDERLYING MASS RIGHT LUNG BASE COMPARISON: CORRELATION IS MADE WITH TODAY'S EARLIER CHEST RADIOGRAPH FINDINGS: There is a large loculated right-sided pleural effusion. Surgical consultation would be helpful There is infiltrate at the right base Whether or not there is an underlying mass is still not clear No mass is identified There is no mediastinal mass There is mediastinal adenopathy Incidental gallstones are seen IMPRESSION: LOCULATED RIGHT-SIDED PLEURAL FLUID COLLECTION POSSIBLE EMPYEMA INFILTRATE RIGHT BASE SURGICAL CONSULTATION SUGGESTED FOR DECORTICATION Anderson Villanueva MD 10/24/20 [id number] Thank you for allowing us to participate in the care of your patient.
--- NOTE | 2020-10-24 16:07 | PCM.SN.2 ---
- Free Text/Narrative Note: CT scan shows pneumonia with parapneumonic effusion vs empyema. Spoke with pulmonology. They do feel initially that a diagnostic and therapeutic thoracentesis is acceptable. Depending on those results, patient may need a chest tube. Patient is clinically stable and not requiring oxygen. Family and caregiver also have expressed that they really do not want her to have to go to [place] unless absolutely necessary. There is really no urgency to the thoracentesis. Local provider able to do the thoracentesis tomorrow. Therefore, patient will stay on IV antibiotics overnight and will have the thoracentesis tomorrow. If gretchen pus, will need to transfer to [place]. Otherwise, will await test results to determine appropriate course of action. Orders entered. Nurse updated.
--- NOTE | 2020-10-24 18:22 | PCM.SN.2 ---
- Free Text/Narrative Note: Was notified of pt drop in BP again with known right pleural effusion. not on iv maintenance fluids. Will repeat [address] of NS and place on IV at NS at 75 ml/hr.
[2020-10-24] MEDS: cefTRIAXone 1 GM Vial IVPUSH SCH (19:04)
[2020-10-24] MEDS: Donepezil 5 MG Tab PO SCH (19:48)
[2020-10-24] MEDS: Acetaminophen 325 MG Tab PO PRN (19:48)
[2020-10-24] MEDS: Azithromycin 250 MG Tab PO SCH (19:48)
[2020-10-25] MEDS: Sodium Chloride 0.9% 1,000 ML IV SCH ×2 (02:14→14:35)
[2020-10-25] MEDS: Levothyroxine 88 MCG Tab PO SCH (06:04)
[2020-10-25 06:58] LABS: ANION GAP 7.2 mmol/L (10-20)
[2020-10-25] MEDS: Polyethylene Glycol 3350 Powder 17 GM Packet PO SCH (08:39)
[2020-10-25] MEDS: Divalproex Sodium Delayed-Release 125 MG Cap.Sprink PO SCH ×2 (08:40→19:44)
[2020-10-25] MEDS: Hypromellose 0.3% Ophth Soln 15 ML Bottle EYEBOTH SCH ×2 (08:40→19:44)
--- NOTE | 2020-10-25 08:56 | PCM.PN ---
- General Info Date of Service: 10/25/20 Subjective Update: 60 yo female hospital day #4 admitted with pneumonia and GWYN. Patient is resting quietly in bed this morning. She does not want to answer questions. She did have another episode of hypotension last evening that responded well to an IV fluid bolus. - Review of Systems Systems Review Comment:: unable to assess due to dementia/Down Syndrome - Patient Data Vitals - Most Recent: Last Vital Signs Temp 36.9 C 10/25/20 08:41 Pulse 65 10/25/20 06:00 Resp 20 10/25/20 06:00 BP 116/58 L 10/25/20 08:41 Pulse Ox 92 L 10/25/20 06:00 Weight - Most Recent: 61.235 kg I&O - Last 24 Hours: Intake & Output 10/24/20 10/25/20 10/25/20 22:59 06:59 14:59 Intake Total 240 1279 Balance 240 1279 Lab Results Last 24 Hours: Laboratory Results - last 24 hr 10/24/20 10/24/20 10/25/20 Range/Units 06:33 06:33 06:35 WBC 6.2 (4.0-10.0) x10^3/uL RBC 2.87 L (4.00-5.50) x10^6/uL Hgb 10.2 L (12.0-16.0) g/dL Hct 31.5 L (33.0-47.0) % MCV 109.8 H (78.0-93.0) fL MCH 35.5 H (26.0-32.0) pg MCHC 32.4 (32.0-36.0) g/dL RDW Coeff of Ester 14.4 (10.0-15.0) % Plt Count 342 (130-400) x10^3/uL Add Manual Diff Yes Neutrophils % (Manual) 67 (50-80) % Band Neutrophils % 3 (0-6) % Lymphocytes % (Manual) 16 L (25-50) % Monocytes % (Manual) 13 H (2-11) % Metamyelocytes % 1 H (0) % Platelet Estimate Adequate Hypochromasia 1+ slight H Macrocytosis 2+ moderate H Ovalocytes 1+ slight H Sodium (136-145) mmol/L Potassium (3.5-5.1) mmol/L Chloride (98-107) mmol/L Carbon Dioxide (21-32) mmol/L Anion Gap (10-20) mmol/L BUN (7-18) mg/dL Creatinine (0.55-1.02) mg/dL Est Cr Clr Drug Dosing mL/min Estimated GFR (MDRD) Glucose (74-106) mg/dL Calcium (8.5-10.1) mg/dL Vitamin B12 565 (180-914) pg/mL Folate >22.3 ng/mL 10/25/20 Range/Units 06:35 WBC (4.0-10.0) x10^3/uL RBC (4.00-5.50) x10^6/uL Hgb (12.0-16.0) g/dL Hct (33.0-47.0) % MCV (78.0-93.0) fL MCH (26.0-32.0) pg MCHC (32.0-36.0) g/dL RDW Coeff of Ester (10.0-15.0) % Plt Count (130-400) x10^3/uL Add Manual Diff Neutrophils % (Manual) (50-80) % Band Neutrophils % (0-6) % Lymphocytes % (Manual) (25-50) % Monocytes % (Manual) (2-11) % Metamyelocytes % (0) % Platelet Estimate Hypochromasia Macrocytosis Ovalocytes Sodium 146 H (136-145) mmol/L Potassium 4.2 (3.5-5.1) mmol/L Chloride 110 H (98-107) mmol/L Carbon Dioxide 33 H (21-32) mmol/L Anion Gap 7.2 L (10-20) mmol/L BUN 17 (7-18) mg/dL Creatinine 1.1 H (0.55-1.02) mg/dL Est Cr Clr Drug Dosing 39.55 mL/min Estimated GFR (MDRD) 51 Glucose 84 (74-106) mg/dL Calcium 8.2 L (8.5-10.1) mg/dL Vitamin B12 (180-914) pg/mL Folate ng/mL Med Orders - Current: Current Medications Acetaminophen (Tylenol) 650 mg PO Q4H PRN PRN Reason: Pain (Mild 1-3)/fever Last Admin: 10/24/20 19:48 Dose: 650 mg Documented by: Artificial Tears (Genteal Mild To Moderate Ophth Soln) 0 ml EYEBOTH BID [facility] Last Admin: 10/25/20 08:40 Dose: 1 drop Documented by: Artificial Tears (Genteal Mild To Moderate Ophth Soln) 0 ml EYEBOTH Q2HR PRN PRN Reason: Dry Eyes Azithromycin (Zithromax) 500 mg PO Q24H [facility] Last Admin: 10/24/20 19:48 Dose: 500 mg Documented by: Ceftriaxone Sodium (Rocephin) 1 gm IVPUSH Q24H [facility] Last Admin: 10/24/20 19:04 Dose: 1 gm Documented by: Divalproex Sodium (Depakote Sprinkle) 500 mg PO DAILY [facility] Last Admin: 10/25/20 08:40 Dose: 500 mg Documented by: Divalproex Sodium (Depakote Sprinkle) 750 mg PO BEDTIME [facility] Last Admin: 10/24/20 19:48 Dose: 750 mg Documented by: Donepezil HCl (Aricept) 10 mg PO BEDTIME [facility] Last Admin: 10/24/20 19:48 Dose: 10 mg Documented by: Sodium Chloride (Normal Saline) 1,000 mls @ 75 mls/hr IV ASDIRECTED [facility] Last Admin: 10/25/20 02:14 Dose: 75 mls/hr Documented by: Levothyroxine Sodium (Synthroid) 88 mcg PO ACBREAKFAST [facility] Last Admin: 10/25/20 06:04 Dose: 88 mcg Documented by: Polyethylene Glycol (Miralax) 8.5 gm PO MoWeFr@0900 [facility] Last Admin: 10/25/20 08:39 Dose: 8.5 gm Documented by: Discontinued Medications Ceftriaxone Sodium (Rocephin) 1 gm IVPUSH Q24H [facility] Last Admin: 10/22/20 19:36 Dose: Not Given Documented by: Sodium Chloride (Normal Saline) 1,000 mls @ 125 mls/hr IV ASDIRECTED [facility] Last Admin: 10/24/20 05:31 Dose: 125 mls/hr Documented by: Azithromycin 500 mg/ Sodium (Chloride) 250 mls @ 250 mls/hr IV Q24H [facility] Last Admin: 10/22/20 19:36 Dose: Not Given Documented by: Azithromycin 500 mg/ Sodium (Chloride) 250 mls @ 250 mls/hr IV Q24H [facility] Last Admin: 10/23/20 18:53 Dose: 250 mls/hr Documented by: Sodium Chloride (Normal Saline) 500 mls @ 500 mls/hr IV ONETIME ONE Stop: 10/23/20 11:00 Last Admin: 10/23/20 10:07 Dose: 500 mls/hr Documented by: - Exam General: Alert, Cooperative, No Acute Distress HEENT: Mucous Membr. Moist/[place] Neck: Supple, Trachea Midline, No Thyromegaly. No: Lymphadenopathy Lungs: Normal Respiratory Effort, Crackles (RLL) Cardiovascular: Regular Rate, Regular Rhythm, No Murmurs GI/Abdominal Exam: Normal Bowel Sounds, Soft, Non-Tender, No Organomegaly, No Distention, No Mass Extremities: Non-Tender, No Pedal Edema, Normal Capillary Refill Peripheral Pulses: 2+: Radial (L), Radial (R) Skin: Warm, Dry, Intact Neurological: No New Focal Deficit Sepsis Event Note - Evaluation Sepsis Screening Result: No Definite Risk - Focused Exam Vital Signs: Vital Signs Temp Pulse Resp BP Pulse Ox 10/25/20 08:41 36.9 C 116/58 L 10/25/20 06:00 36.4 C 65 20 107/55 L 92 L 10/25/20 02:00 36.6 C 61 20 97/42 L 93 L 10/24/20 21:31 37.0 C 70 18 99/55 L 95 - Problem List & Annotations (1) Pneumonia SNOMED Code(s): 062110906 Code(s): J18.9 - PNEUMONIA, UNSPECIFIED ORGANISM Status: Acute Current Visit: Yes Qualifiers: Pneumonia type: due to unspecified organism Laterality: right Lung loca tion: lower lobe of lung Qualified Code(s): J18.9 - Pneumonia, unspecified organism (2) Pleural effusion SNOMED Code(s): 88212305 Code(s): J90 - PLEURAL EFFUSION, NOT ELSEWHERE CLASSIFIED Status: Acute Current Visit: Yes (3) Acute kidney injury SNOMED Code(s): 16398286, 63860908 Code(s): N17.9 - ACUTE KIDNEY FAILURE, UNSPECIFIED Status: Acute Current Visit: Yes (4) Dehydration SNOMED Code(s): 36324682 Code(s): E86.0 - DEHYDRATION Status: Acute Current Visit: Yes (5) Anemia SNOMED Code(s): 389273609 Code(s): D64.9 - ANEMIA, UNSPECIFIED Status: Acute Current Visit: Yes Qualifiers: Anemia type: unspecified type Qualified Code(s): D64.9 - Anemia, unspecified (6) Leukopenia SNOMED Code(s): 72669654, 133454084 Code(s): D72.819 - DECREASED WHITE BLOOD CELL COUNT, UNSPECIFIED Status: Chronic Current Visit: Yes Qualifiers: Leukopenia type: unspecified Qualified Code(s): D72.819 - Decreased white blood cell count, unspecified (7) Hypothyroid SNOMED Code(s): 38241074 Code(s): E03.9 - HYPOTHYROIDISM, UNSPECIFIED Status: Chronic Current Visit: Yes Qualifiers: Hypothyroidism type: acquired Qualified Code(s): E03.9 - Hypothyroidism, unspecified (8) Seizure disorder SNOMED Code(s): 864615120 Code(s): G40.909 - EPILEPSY, UNSP, NOT INTRACTABLE, WITHOUT STATUS EPILEPTICUS Status: Chronic Current Visit: Yes (9) Down syndrome SNOMED Code(s): 81723441 Code(s): Q90.9 - DOWN SYNDROME, UNSPECIFIED Status: Chronic Current Visit: Yes (10) Alzheimer disease SNOMED Code(s): 92838263 Code(s): G30.9 - ALZHEIMER'S DISEASE, UNSPECIFIED; F02.80 - DEMENTIA IN OTH DISEASES CLASSD ELSWHR W/O BEHAVRL DISTURB Status: Chronic Current Visit: Yes Qualifiers: Alzheimer's disease onset: early-onset Dementia behavioral disturbance: without behavioral disturbance Qualified Code(s): G30.0 - Alzheimer's disease with early onset; F02.80 - Dementia in other diseases classified elsewhere without behavioral disturbance - Problem List Review Problem List Initiated/Reviewed/Updated: Yes - My Orders Last 24 Hours: My Active Orders 10/24/20 16:09 BODY FLUID, GLUCOSE Urgent BODY FLUID, PH Routine 10/24/20 20:00 Azithromycin [Zithromax] 500 mg PO Q24H 10/25/20 08:05 CELL COUNT,BODY FLUID [BF] Routine CULTURE BODY FLUID [RM] Routine 10/25/20 11:30 GRAM STAIN [RM] Routine 10/26/20 05:11 BASIC METABOLIC PANEL,BMP [CHEM] Routine C-REACTIVE PROTEIN [CHEM] Routine CBC WITH AUTO DIFF [HEME] Routine - Assessment Assessment:: 60 yo female hospital day #4 admitted with GWYN and pneumonia. GWYN is resolved. Patient overall stable. Labs stable/improved today. - Plan Plan:: #1 Community Acquired Pneumonia #2 Parapneumonic Pleural Effusion - COVID negative on admission. - CURB-65 score of 2 (elevated BUN, confusion); therefore, patient admitted for initial therapies. - CXR still showed a significant infiltrate in the RLL yesterday; therefore, CT was completed. This did show the infiltrate but also a right sided pleural effusion with some loculations. Recommendation is to do a diagnostic and therapeutic thoracentesis today. Spoke with patient's sisters this morning and they are agreeable to this. They are not sure they would want her transferred for a chest tube but do want to know what the fluid is (purulent or otherwise). - As patient is otherwise clinically improving, continue ceftriaxone and azithromycin. - Does not meet sepsis criteria; therefore, lactic acid and blood cultures not done. If patient is febrile during admission, will obtain blood cultures and lactic acid at that time. #2 GWYN, secondary to #3 #3 Dehydration - Creatinine remains stable at 1.1 today. - Continue IV fluids at 75 cc/hr. - Patient can also eat/drink ad ayan. #4 Anemia #5 Leukopenia - Patient has a long history of leukopenia but has never had anemia. WBC improving but still above baseline. - Hgb has been stable. - Stool occult blood negative 10/23. Folate and B12 normal. Iron studies most consistent with anemia of chronic disease. - Will monitor daily. #6 Hypothyroidism #7 Seizure Disorder #8 Down Syndrome #9 Dementia - TSH recently in range. - Continue home medications. Patient will remain on acute today - anticipate longer duration of IV antibiotics depending on the results from her thoracentesis. Will be on acute at least until tomorrow - possibly could go swing bed over the weekend depending on her clinical course. Code status is DNR/DNI - discussed with sister and soon-to-be guardian on admission; confirmed with other sister and co-guardian 10/25. Continue SCD's - pharmacologic VTE prophylaxis held in light of anemia initially and now due to procedure planned today.
--- NOTE | 2020-10-25 15:52 | PCM.SN.2 ---
- Free Text/Narrative Note: Thoracentesis was not able to be completed due to patient inability to cooperate with the procedure. Discussed with her sister Tennille. They do not want her to have a chest tube even if she has an empyema. They would rather continue the antibiotics and see how she does. They understand that this will not be effective if she does have an empyema. Therefore, will not transfer to [place] for further attempts at a thoracentesis as per family wishes. Will continue antibiotics and will plan for a total of 7 days of IV antibiotics and then repeating her CXR. Understand this will likely keep her here >96 hours. However, the patient is not prepared for d/c back to her skilled nursing and does not have any indication for transfer to a tertiary hospital as explained above. Therefore, she will remain in [place] at this time.
--- NOTE | 2020-10-25 17:05 | PCM.SN.2 ---
- Free Text/Narrative Note: Consent obtained from her sister over the phone and we did an US in preparation for thoracentesis. Patient did not tolerate positioning the best and we were not able to find a large pocket of fluid therefore the procedure was abandoned due to safety concerns. PCP updated and lab orders for fluid cancelled.
[2020-10-25] MEDS: cefTRIAXone 1 GM Vial IVPUSH SCH (19:43)
[2020-10-25] MEDS: Donepezil 5 MG Tab PO SCH (19:44)
[2020-10-25] MEDS: Azithromycin 250 MG Tab PO SCH (19:44)
[2020-10-25] MEDS: Acetaminophen 325 MG Tab PO PRN (19:54)
[2020-10-26] MEDS: Sodium Chloride 0.9% 1,000 ML IV SCH ×2 (03:22→16:40)
[2020-10-26] MEDS: Levothyroxine 88 MCG Tab PO SCH (06:08)
[2020-10-26 08:01] LABS: ANION GAP 9.4 mmol/L (10-20)
[2020-10-26] MEDS: Divalproex Sodium Delayed-Release 125 MG Cap.Sprink PO SCH ×2 (08:22→19:45)
[2020-10-26] MEDS: Hypromellose 0.3% Ophth Soln 15 ML Bottle EYEBOTH SCH ×2 (08:22→19:46)
[2020-10-26] MEDS: cefTRIAXone 1 GM Vial IVPUSH SCH (19:45)
[2020-10-26] MEDS: Azithromycin 250 MG Tab PO SCH (19:45)
[2020-10-26] MEDS: Donepezil 5 MG Tab PO SCH (19:46)
[2020-10-27] MEDS: Levothyroxine 88 MCG Tab PO SCH (06:02)
[2020-10-27] MEDS: Sodium Chloride 0.9% 1,000 ML IV SCH (06:02)
[2020-10-27] MEDS: Divalproex Sodium Delayed-Release 125 MG Cap.Sprink PO SCH ×2 (07:41→19:46)
[2020-10-27] MEDS: Hypromellose 0.3% Ophth Soln 15 ML Bottle EYEBOTH SCH ×2 (07:42→19:46)
[2020-10-27 08:05] LABS: ANION GAP 7.5 mmol/L (10-20)
[2020-10-27] MEDS: Acetaminophen 325 MG Tab PO PRN (18:07)
[2020-10-27] MEDS ORDERED: Benzocaine/Cetylpyridinium/Menthol Lozenge MUCMEM PRN (18:28)
[2020-10-27] MEDS: cefTRIAXone 1 GM Vial IVPUSH SCH (19:45)
[2020-10-27] MEDS: Donepezil 5 MG Tab PO SCH (19:46)
[2020-10-28] MEDS: Levothyroxine 88 MCG Tab PO SCH (06:06)
[2020-10-28 07:12] LABS: ANION GAP 6.5 mmol/L (10-20)
[2020-10-28] MEDS ORDERED: Azithromycin 250 MG Tab PO SCH (08:00)
[2020-10-28] MEDS: Hypromellose 0.3% Ophth Soln 15 ML Bottle EYEBOTH SCH (08:15)
[2020-10-28] MEDS: Divalproex Sodium Delayed-Release 125 MG Cap.Sprink PO SCH (08:15)
[2020-10-28] MEDS: Polyethylene Glycol 3350 Powder 17 GM Packet PO SCH (08:26)
--- NOTE | 2020-10-28 09:07 | PN ---
Progress Note for CHIP LANCE RIZWANA Date: 10/27/2020 Room #: VM.203 CHIEF COMPLAINT: Pneumonia. SUBJECTIVE: Hospital day #6 for a 60-year-old female patient, who was admitted last week for pneumonia and acute kidney injury. The patient is resting quietly in bed this morning. The patient has Down syndrome and dementia and is unable to provide much history. The patient does smile when asked questions. According to the nursing staff, the patient has been doing well. The patient has not had any complaints of pain. The patient has been eating okay today. The patient has not had any problems with urination. PHYSICAL EXAMINATION: Vital Signs: Temperature 98, pulse 88, blood pressure 100/40, respiratory rate 16, and oxygen saturation 97% on room air. General: The patient is alert. The patient does not appear to be in any acute distress. The patient is cooperative. Respiratory: Right lower lobe crackles, otherwise clear. No wheezing. Cardiovascular: Regular rate and rhythm, no murmur. Abdomen: Soft. Nontender. Bowel sounds are normoactive x4. Skin: Intact, warm, and dry. Neurological: The patient is alert. The patient does not appear to be in any acute distress. Unable to fully assess due to Down syndrome and dementia. LABORATORY STUDIES: CBC: White blood cell count 7.8, hemoglobin 10.2, hematocrit 31.1, and platelets 413,000. BMP: Sodium 141, potassium 4.5, chloride 106, CO2 of 32, anion gap 7.5, BUN 13, creatinine 1.1, GFR 51, glucose 83, and calcium 8.2. ASSESSMENT: 1. Pneumonia. 2. Pleural effusion. 3. Acute kidney injury. 4. Dehydration. 5. Anemia. 6. Leukopenia. 7. Hypothyroidism. 8. Seizure disorder. 9. Down syndrome. 10.Alzheimer disease. PLAN: Hospital day #6 for a 60-year-old patient admitted for pneumonia and acute kidney injury. The patient appears to be doing much better today. We will change the Zithromax to p.o. Continue with IV Rocephin through today, then discontinue. Encourage ambulation as much as possible. We will discontinue IV fluids as the patient has started taking p.o. well. The patient will be transitioned to swing bed tomorrow per PCP. The patient is a code 3. TB: 10/27/2020 19:19:47 MODL: 10/27/2020 19:42:46 /[id number]
--- NOTE | 2020-10-28 09:07 | PN ---
Progress Note for CHIP LANCE RIZWANA Date: 10/26/2020 Room #: VM.203 CHIEF COMPLAINT: Pneumonia. SUBJECTIVE: This is hospital day #5 for a 60-year-old female patient who was admitted on 10/22/2020 for pneumonia, acute kidney injury, dehydration. Unable to obtain information from the patient due to Down syndrome and dementia. According to prison staff, the patient has been doing okay. The patient has not complained of any noticeable pain. The patient's vital signs have remained stable. The patient is attempting to eat as able. The patient has had some issues with hypotension in which she was given IV fluid bolus. Blood pressures have remained stable over the past 24 hours. The patient is sleeping this morning. The patient does not appear to be in any acute distress. A thoracentesis via ultrasound was attempted yesterday, however, the patient did not tolerate. The patient had a CT scan completed on 10/24, which showed a large loculated right pleural effusion. PHYSICAL EXAMINATION: Vital Signs: Temperature 97.4, pulse 72, blood pressure 106/63, respiratory rate 18, oxygen saturation 93% on room air. Respiratory: Crackles auscultated right lower lobe, normal respiratory effort. No respiratory distress. Cardiovascular: Regular rate and rhythm, no murmurs. Abdomen: Soft, nontender. Bowel sounds are normoactive x4. Skin: Intact, warm, and dry. Extremities: No pedal edema. Neurological: No new focal neurological deficits. The patient is resting comfortably. LABORATORY STUDIES: 1. CBC: White blood cell count 6.7, hemoglobin 11.3, hematocrit 34.0, platelets are 368,000. 2. BMP: Sodium 144, potassium 4.4, chloride 108, CO2 of 31, anion gap 9.4, BUN is 15, creatinine 1.1, GFR is 51, calcium 8.5. 3. C-reactive protein 17.9. ASSESSMENT: 1. Community-acquired pneumonia. 2. Parapneumonic pleural effusion. 3. Acute kidney injury secondary to dehydration. 4. Dehydration. 5. Anemia. 6. Leukopenia. 7. Hypothyroidism. 8. Seizure disorder. 9. Down syndrome. 10.Dementia. PLAN: Hospital day #5 for a 60-year-old female patient who was admitted for community-acquired pneumonia, acute kidney injury, and dehydration. The patient is not a candidate to transfer to a higher level of care as this is not the goal of care for the patient. Given minimal p.o. intake, we will continue the patient on IV antibiotics for pneumonia. We will continue all other medications the same. The patient also remain on acute due to anticipated longer duration of IV antibiotics. Continue with SCDs. Encourage ambulation for VTE prophylaxis. Recheck laboratory work tomorrow morning. Anticipate swing bed status either Wednesday or Wednesday per PCP. TB: 10/26/2020 10:27:37 MODL: 10/26/2020 11:11:58 /[id number]
--- NOTE | 2020-10-28 09:42 | CR ---
[id number] RAD/RAD Chest PA or AP 1V EXAM: RAD Chest PA or AP 1V INDICATION: FOLLOW UP PNEUMONIA. COMPARISON: October 24, 2020. DISCUSSION: Cardiomediastinal silhouette is stable in size and contour. Stable hazy opacification overlying the right lung likely representing effusion. Right basilar infiltrate is not excluded. The left lung is clear. IMPRESSION: Overall no significant change when compared to the prior. Quirino Ryder DO 10/28/20 0940 Thank you for allowing us to participate in the care of your patient.
--- NOTE | 2020-10-28 09:55 | PCM.DCSUM1 ---
Discharge Summary - Hospital Course Brief History: Ms. Herron is a 60 yo female who was admitted for community acquired pneumonia and GWYN after presenting to clinic for evaluation of generalized weakness x 1 week. - Discharge Data Discharge Date: 10/28/20 Discharge Disposition: DC/Tfer W/I Hosp To Swing 61 Condition: Good - Referral to Home Health Primary Care Physician: Anna Iqbal MD - Discharge Diagnosis/Problem(s) (1) Pneumonia SNOMED Code(s): 511587244 ICD Code: J18.9 - PNEUMONIA, UNSPECIFIED ORGANISM Status: Acute Current Visit: Yes Qualifiers: Pneumonia type: due to unspecified organism Laterality: right Lung location: lower lobe of lung Qualified Code(s): J18.9 - Pneumonia, unspecified organism (2) Pleural effusion SNOMED Code(s): 29697285 ICD Code: J90 - PLEURAL EFFUSION, NOT ELSEWHERE CLASSIFIED Status: Acute Current Visit: Yes (3) Acute kidney injury SNOMED Code(s): 48948717, 52131741 ICD Code: N17.9 - ACUTE KIDNEY FAILURE, UNSPECIFIED Status: Acute Current Visit: Yes (4) Dehydration SNOMED Code(s): 59813131 ICD Code: E86.0 - DEHYDRATION Status: Acute Current Visit: Yes (5) Anemia SNOMED Code(s): 921847040 ICD Code: D64.9 - ANEMIA, UNSPECIFIED Status: Acute Current Visit: Yes Qualifiers: Anemia type: unspecified type Qualified Code(s): D64.9 - Anemia, unspecified (6) Leukopenia SNOMED Code(s): 47004841, 414433722 ICD Code: D72.819 - DECREASED WHITE BLOOD CELL COUNT, UNSPECIFIED Status: Chronic Current Visit: Yes Qualifiers: Leukopenia type: unspecified Qualified Code(s): D72.819 - Decreased white blood cell count, unspecified (7) Hypothyroid SNOMED Code(s): 57686577 ICD Code: E03.9 - HYPOTHYROIDISM, UNSPECIFIED Status: Chronic Current Visit: Yes Qualifiers: Hypothyroidism type: acquired Qualified Code(s): E03.9 - Hypothyroidism, unspecified (8) Seizure disorder SNOMED Code(s): 488972152 ICD Code: G40.909 - EPILEPSY, UNSP, NOT INTRACTABLE, WITHOUT STATUS EPILEPTICUS Status: Chronic Current Visit: Yes (9) Down syndrome SNOMED Code(s): 80297575 ICD Code: Q90.9 - DOWN SYNDROME, UNSPECIFIED Status: Chronic Current Visit: Yes (10) Alzheimer disease SNOMED Code(s): 90184704 ICD Code: G30.9 - ALZHEIMER'S DISEASE, UNSPECIFIED; F02.80 - DEMENTIA IN OTH DISEASES CLASSD ELSWHR W/O BEHAVRL DISTURB Status: Chronic Current Visit: Yes Qualifiers: Alzheimer's disease onset: early-onset Dementia behavioral disturbance: without behavioral disturbance Qualified Code(s): G30.0 - Alzheimer's disease with early onset; F02.80 - Dementia in other diseases classified elsewhere without behavioral disturbance - Patient Summary/Data Operative Procedure(s) Performed: none Complications: none Consults: Consultations 10/23/ 11:03 OT Evaluation and Treatment [CONS] Routine PT Evaluation and Treatment [CONS] Routine Labs Pending at D/C: none Recommended Follow-up Testing/Procedures: none Planned Operative Procedure(s) after DC: none Hospital Course: The patient was admitted and given IV fluids and IV antibiotics. A follow-up chest x-ray on hospital day #3 appeared unchanged; therefore, a CT scan was done. This showed a large parapneumonia effusion with concern for a potential empyema. A thoracentesis was attempted on hospital day #4 but was not able to be completed due to patient inability to cooperate even with the ultrasound. Upon discussions with her family, they did not want to proceed with transfer to [place] for a thoracentesis and possible subsequent chest tube. Understanding that antibiotics will likely not be completely effective on their own, they opted for conservative management based on current goals of care. Therefore, she remained in [place] on antibiotics. Her mentation progressively improved, as did her oral intake. She was never febrile during her admission. Labs progressively improved and her IV fluids were discontinued. She was continued on IV antibiotics through her hospital stay. Physical therapy did evaluate her and they will continue to work with the patient to get her stronger prior to returning to her skilled nursing. Her hospitalization was otherwise uncomplicated. She will be transitioned to swing bed today for further strengthening prior to d/c home. - Patient Instructions Diet: Usual Diet as Tolerated Activity: As Tolerated - Discharge Plan *PRESCRIPTION DRUG MONITORING PROGRAM REVIEWED*: No *COPY OF PRESCRIPTION DRUG MONITORING REPORT IN PATIENT TOMMIE: No Home Medications: Home Meds Cholecalciferol (Vitamin D3) [Vitamin D3] 2,000 unit PO DAILY 03/11/19 [History] polyethylene glycoL 3350 [MiraLAX] 8.5 gm PO MOWEFR@08 06/23/20 [History] Carboxymethylcellulose Sodium [Refresh Tears] 1 drop OP BID 10/22/20 [History] Carboxymethylcellulose Sodium [Refresh Tears] 1 drop OP Q2H PRN 10/22/20 [History] Divalproex Sodium [Depakote Sprinkle] 500 mg PO DAILY 10/22/20 [History] Divalproex Sodium [Depakote Sprinkle] 750 mg PO BEDTIME 10/22/20 [History] Pediatric Multivit Comb No.144 [Children's Chewable Vitamin] 1 tab PO DAILY 10/23/20 [History] Acetaminophen [Tylenol] 650 mg PO Q4H PRN tablet 10/28/20 [Rx] Cefdinir [Omnicef] 300 mg PO BID cap 10/28/20 [Rx] Donepezil [Aricept] 10 mg PO BEDTIME tablet 10/28/20 [Rx] Levothyroxine [Synthroid] 88 mcg PO ACBREAKFAST tablet 10/28/20 [Rx] - Discharge Summary/Plan Comment DC Time >30 min.: No - General Info Date of Service: 10/28/20 Subjective Update: Patient is alert today. She states she is doing much better. She otherwise does not answer questions appropriately, which is her baseline. - Review of Systems Systems Review Comment: unable to assess due to dementia/Down Syndrome - Patient Data Vitals - Most Recent: Last Vital Signs Temp 36.4 C 10/28/20 06:00 Pulse 57 L 10/28/20 06:00 Resp 18 10/28/20 06:00 BP 91/47 L 10/28/20 06:00 Pulse Ox 97 10/28/20 06:00 Weight - Most Recent: 61.235 kg I&O - Last 24 hours: Intake & Output 10/27/20 10/28/20 10/28/20 22:59 06:59 14:59 Intake Total 570 120 Balance 570 120 Lab Results - Last 24 hrs: Laboratory Results - last 24 hr 10/28/20 10/28/20 Range/Units 06:39 06:39 WBC 6.9 (4.0-10.0) x10^3/uL RBC 3.02 L (4.00-5.50) x10^6/uL Hgb 10.8 L (12.0-16.0) g/dL Hct 32.9 L (33.0-47.0) % MCV 108.9 H (78.0-93.0) fL MCH 35.8 H (26.0-32.0) pg MCHC 32.8 (32.0-36.0) g/dL RDW Coeff of Ester 14.4 (10.0-15.0) % Plt Count 451 H (130-400) x10^3/uL Add Manual Diff Yes Neutrophils % (Manual) 66 (50-80) % Band Neutrophils % 4 (0-6) % Lymphocytes % (Manual) 15 L (25-50) % Monocytes % (Manual) 12 H (2-11) % Eosinophils % (Manual) 3 (0-4) % Platelet Estimate Increased H Macrocytosis 1+ slight H Ovalocytes 1+ slight H Sodium 140 (136-145) mmol/L Potassium 4.5 (3.5-5.1) mmol/L Chloride 104 (98-107) mmol/L Carbon Dioxide 34 H (21-32) mmol/L Anion Gap 6.5 L (10-20) mmol/L BUN 15 (7-18) mg/dL Creatinine 1.1 H (0.55-1.02) mg/dL Est Cr Clr Drug Dosing 39.55 mL/min Estimated GFR (MDRD) 51 Glucose 81 (74-106) mg/dL Calcium 8.4 L (8.5-10.1) mg/dL Corrected Calcium 10.40 H (8.5-10.1) mg/dL Total Bilirubin 0.3 (0.2-1.0) mg/dL AST 31 (15-37) U/L ALT 17 (14-59) U/L Alkaline Phosphatase 128 H (46-116) U/L C-Reactive Protein 13.3 H (<=0.9) mg/dL Total Protein 6.1 L (6.4-8.2) g/dL Albumin 1.5 L (3.4-5.0) g/dL Globulin 4.6 Albumin/Globulin Ratio 0.33 Med Orders - Current: Current Medications Acetaminophen (Tylenol) 650 mg PO Q4H PRN PRN Reason: Pain (Mild 1-3)/fever Last Admin: 10/27/20 18:07 Dose: 650 mg Documented by: Artificial Tears (Genteal Mild To Moderate Ophth Soln) 0 ml EYEBOTH BID [facility] Last Admin: 10/28/20 08:15 Dose: 1 drop Documented by: Artificial Tears (Genteal Mild To Moderate Ophth Soln) 0 ml EYEBOTH Q2HR PRN PRN Reason: Dry Eyes Benzocaine/Menthol (Cepacol Sore Throat) 1 lozenge MUCMEM Q6HR PRN PRN Reason: Sore Throat Last Admin: 10/27/20 18:47 Dose: 1 lozenge Documented by: Cefdinir (Omnicef) 300 mg PO BID [facility] Divalproex Sodium (Depakote Sprinkle) 500 mg PO DAILY [facility] Last Admin: 10/28/20 08:15 Dose: 500 mg Documented by: Divalproex Sodium (Depakote Sprinkle) 750 mg PO BEDTIME [facility] Last Admin: 10/27/20 19:46 Dose: 750 mg Documented by: Donepezil HCl (Aricept) 10 mg PO BEDTIME [facility] Last Admin: 10/27/20 19:46 Dose: 10 mg Documented by: Levothyroxine Sodium (Synthroid) 88 mcg PO ACBREAKFAST [facility] Last Admin: 10/28/20 06:06 Dose: 88 mcg Documented by: Polyethylene Glycol (Miralax) 8.5 gm PO MoWeFr@0900 [facility] Last Admin: 10/28/20 08:26 Dose: Not Given Documented by: Discontinued Medications Azithromycin (Zithromax) 500 mg PO Q24H [facility] Last Admin: 10/26/20 19:45 Dose: 500 mg Documented by: Azithromycin (Zithromax) 500 mg PO DAILY [facility] Last Admin: 10/28/20 08:15 Dose: 500 mg Documented by: Ceftriaxone Sodium (Rocephin) 1 gm IVPUSH Q24H [facility] Last Admin: 10/22/20 19:36 Dose: Not Given Documented by: Ceftriaxone Sodium (Rocephin) 1 gm IVPUSH Q24H [facility] Stop: 10/27/20 20:00 Last Admin: 10/27/20 19:45 Dose: 1 gm Documented by: Sodium Chloride (Normal Saline) 1,000 mls @ 125 mls/hr IV ASDIRECTED [facility] Last Admin: 10/24/20 05:31 Dose: 125 mls/hr Documented by: Azithromycin 500 mg/ Sodium (Chloride) 250 mls @ 250 mls/hr IV Q24H [facility] Last Admin: 10/22/20 19:36 Dose: Not Given Documented by: Azithromycin 500 mg/ Sodium (Chloride) 250 mls @ 250 mls/hr IV Q24H [facility] Last Admin: 10/23/20 18:53 Dose: 250 mls/hr Documented by: Sodium Chloride (Normal Saline) 500 mls @ 500 mls/hr IV ONETIME ONE Stop: 10/23/20 11:00 Last Admin: 10/23/20 10:07 Dose: 500 mls/hr Documented by: Sodium Chloride (Normal Saline) 1,000 mls @ 75 mls/hr IV ASDIRECTED [facility] Last Admin: 10/27/20 06:02 Dose: 75 mls/hr Documented by: - Exam General: Reports: Alert, Cooperative, No Acute Distress HEENT: Reports: Mucous Membr. Moist/[place] Neck: Reports: Supple, Trachea Midline, No Thyromegaly. Denies: Lymphadenopathy Lungs: Reports: Normal Respiratory Effort, Decreased Breath Sounds (RLL), Crackles (RLL) Cardiovascular: Reports: Regular Rate, Regular Rhythm, Murmurs GI/Abdominal Exam: Normal Bowel Sounds, Soft, Non-Tender, No Organomegaly, No Distention, No Mass Extremities: Normal Inspection, Non-Tender, No Pedal Edema, Normal Capillary Refill Skin: Reports: Warm, Dry, Intact Neurological: Reports: No New Focal Deficit *Q Meaningful Use (DIS) - VTE *Q VTE Pharmacological Contraindications *Q: Active Hemorrhage
[2020-10-28] MEDS ORDERED: Cefdinir 300 MG Cap PO SCH (10:00)
== END 2020-10-28 11:10 | disposition swing bed (61) | DRG 177 ==
LOC: VM.MS 16:36
PROVIDERS: ADMIT Family Medicine; ATTEND Family Medicine
DX: J86.9 Pyothorax without fistula (principal); J18.9 Pneumonia, unspecified organism; N17.9 Acute kidney failure, unspecified; J90 Pleural effusion, not elsewhere classified; Z66 Do not resuscitate; D64.9 Anemia, unspecified; E86.0 Dehydration; Z20.828 Contact with and (suspected) exposure to other viral communicable diseases; D72.819 Decreased white blood cell count, unspecified; E03.9 Hypothyroidism, unspecified; I95.9 Hypotension, unspecified; G40.909 Epilepsy, unspecified, not intractable, without status epilepticus; G30.0 Alzheimer's disease with early onset; F02.80 Dementia in other diseases classified elsewhere, unspecified severity, without behavioral disturbance, psychotic disturbance, mood disturbance, and anxiety; K59.00 Constipation, unspecified; Q90.9 Down syndrome, unspecified; Z79.899 Other long term (current) drug therapy; Z79.890 Hormone replacement therapy
CPT/HCPCS: 36415; 71045; 71250; 80048; 80053; 82274; 82607; 82746; 83540; 83550; 85025; 85652; 86140; 97116-GP; 97161-GP; 97530-GP; A9270-GY; J0456; J0696; J7030; J7040; J7050; U0002

== ENCOUNTER 2020-10-28 10:53 | Inpatient (IN) | payer MEDICARE, MEDICAID ==
--- NOTE | 2020-10-28 12:01 | PCM.SN.2 ---
- Free Text/Narrative Note: Patient admitted to swing bed from acute. See d/c summary from acute hospitalization for further details. Admitted to swing bed for strengthening prior to return home to halfway.
[2020-10-28] MEDS ORDERED: Hypromellose 0.3% Ophth Soln 15 ML Bottle EYEBOTH PRN (12:15)
[2020-10-28] MEDS: Donepezil 5 MG Tab PO SCH (19:37)
[2020-10-28] MEDS: Cefdinir 300 MG Cap PO SCH (19:38)
[2020-10-28] MEDS: Hypromellose 0.3% Ophth Soln 15 ML Bottle EYEBOTH SCH (19:38)
[2020-10-28] MEDS: Divalproex Sodium Delayed-Release 125 MG Cap.Sprink PO SCH (19:38)
[2020-10-29] MEDS: Levothyroxine 88 MCG Tab PO SCH (06:48)
[2020-10-29] MEDS: Acetaminophen 325 MG Tab PO PRN (08:07)
[2020-10-29] MEDS: Cefdinir 300 MG Cap PO SCH ×2 (08:07→19:51)
[2020-10-29] MEDS: Divalproex Sodium Delayed-Release 125 MG Cap.Sprink PO SCH ×2 (08:08→19:50)
[2020-10-29] MEDS: Hypromellose 0.3% Ophth Soln 15 ML Bottle EYEBOTH SCH ×2 (08:08→19:52)
[2020-10-29] MEDS: Cholecalciferol (Vitamin D3) 25 MCG Tab PO SCH (08:08)
[2020-10-29] MEDS: [UNRECOGNIZED DRUG - OTHER] PO SCH (12:16)
[2020-10-29] MEDS: Donepezil 5 MG Tab PO SCH (19:51)
[2020-10-30] MEDS: Levothyroxine 88 MCG Tab PO SCH (06:46)
[2020-10-30] MEDS: Cholecalciferol (Vitamin D3) 25 MCG Tab PO SCH (09:10)
[2020-10-30] MEDS: Cefdinir 300 MG Cap PO SCH (09:10)
[2020-10-30] MEDS: Divalproex Sodium Delayed-Release 125 MG Cap.Sprink PO SCH ×2 (09:10→19:45)
[2020-10-30] MEDS: Hypromellose 0.3% Ophth Soln 15 ML Bottle EYEBOTH SCH ×2 (09:11→19:45)
[2020-10-30] MEDS: [UNRECOGNIZED DRUG - OTHER] PO SCH (09:11)
[2020-10-30] MEDS: Polyethylene Glycol 3350 Powder 17 GM Packet PO SCH (09:11)
[2020-10-30] MEDS: Calcium Carbonate 750 MG Tab.Chew PO PRN (11:08)
[2020-10-30] MEDS: Donepezil 5 MG Tab PO SCH (19:45)
[2020-10-31] MEDS: Levothyroxine 88 MCG Tab PO SCH (06:40)
[2020-10-31] MEDS: Hypromellose 0.3% Ophth Soln 15 ML Bottle EYEBOTH SCH ×2 (08:21→19:06)
[2020-10-31] MEDS: [UNRECOGNIZED DRUG - OTHER] PO SCH (08:21)
[2020-10-31] MEDS: Divalproex Sodium Delayed-Release 125 MG Cap.Sprink PO SCH ×2 (08:21→19:05)
[2020-10-31] MEDS: Cholecalciferol (Vitamin D3) 25 MCG Tab PO SCH (08:21)
[2020-10-31] MEDS: Calcium Carbonate 750 MG Tab.Chew PO PRN (15:17)
[2020-10-31] MEDS: Acetaminophen 325 MG Tab PO PRN (19:05)
[2020-10-31] MEDS: Donepezil 5 MG Tab PO SCH (19:05)
[2020-11-01] MEDS: [UNRECOGNIZED DRUG - OTHER] PO SCH (10:46)
[2020-11-01] MEDS: Cholecalciferol (Vitamin D3) 25 MCG Tab PO SCH (10:49)
[2020-11-01] MEDS: Polyethylene Glycol 3350 Powder 17 GM Packet PO SCH (10:49)
[2020-11-01] MEDS: Divalproex Sodium Delayed-Release 125 MG Cap.Sprink PO SCH ×2 (10:49→19:37)
[2020-11-01] MEDS: Hypromellose 0.3% Ophth Soln 15 ML Bottle EYEBOTH SCH ×2 (10:49→19:39)
[2020-11-01] MEDS: Levothyroxine 88 MCG Tab PO SCH (10:49)
[2020-11-01] MEDS: Donepezil 5 MG Tab PO SCH (19:37)
[2020-11-01] MEDS: Acetaminophen 325 MG Tab PO PRN (19:37)
[2020-11-01] MEDS: Calcium Carbonate 750 MG Tab.Chew PO PRN (19:44)
[2020-11-02] MEDS: Levothyroxine 88 MCG Tab PO SCH (06:52)
[2020-11-02] MEDS: Divalproex Sodium Delayed-Release 125 MG Cap.Sprink PO SCH ×2 (08:24→19:48)
[2020-11-02] MEDS: Cholecalciferol (Vitamin D3) 25 MCG Tab PO SCH (08:24)
[2020-11-02] MEDS: Calcium Carbonate 750 MG Tab.Chew PO PRN (08:25)
[2020-11-02] MEDS: [UNRECOGNIZED DRUG - OTHER] PO SCH (08:32)
[2020-11-02] MEDS: Hypromellose 0.3% Ophth Soln 15 ML Bottle EYEBOTH SCH ×2 (08:32→19:55)
[2020-11-02] MEDS: Donepezil 5 MG Tab PO SCH (19:49)
[2020-11-03] MEDS: Acetaminophen 325 MG Tab PO PRN ×2 (02:35→21:32)
[2020-11-03] MEDS: Levothyroxine 88 MCG Tab PO SCH (06:05)
[2020-11-03] MEDS: [UNRECOGNIZED DRUG - OTHER] PO SCH (11:51)
[2020-11-03] MEDS: Hypromellose 0.3% Ophth Soln 15 ML Bottle EYEBOTH SCH ×2 (11:51→21:32)
[2020-11-03] MEDS: Calcium Carbonate 750 MG Tab.Chew PO PRN (11:52)
[2020-11-03] MEDS: Cholecalciferol (Vitamin D3) 25 MCG Tab PO SCH (11:52)
[2020-11-03] MEDS: Divalproex Sodium Delayed-Release 125 MG Cap.Sprink PO SCH ×2 (11:52→20:17)
[2020-11-03] MEDS: Donepezil 5 MG Tab PO SCH (20:17)
[2020-11-04] MEDS: Acetaminophen 325 MG Tab PO PRN ×2 (05:44→19:41)
[2020-11-04] MEDS: Levothyroxine 88 MCG Tab PO SCH ×2 (05:47→06:14)
[2020-11-04] MEDS: Divalproex Sodium Delayed-Release 125 MG Cap.Sprink PO SCH ×2 (09:45→19:42)
[2020-11-04] MEDS: Polyethylene Glycol 3350 Powder 17 GM Packet PO SCH (09:45)
[2020-11-04] MEDS: Cholecalciferol (Vitamin D3) 25 MCG Tab PO SCH (09:45)
[2020-11-04] MEDS: [UNRECOGNIZED DRUG - OTHER] PO SCH (09:46)
[2020-11-04] MEDS: Hypromellose 0.3% Ophth Soln 15 ML Bottle EYEBOTH SCH ×2 (09:47→19:42)
[2020-11-04] MEDS: Calcium Carbonate 750 MG Tab.Chew PO PRN (11:51)
[2020-11-04] MEDS: Donepezil 5 MG Tab PO SCH (19:41)
[2020-11-04] MEDS ORDERED: Sodium Chloride 0.9% 10 ML Syringe FLUSH PRN (19:47)
[2020-11-04] MEDS ORDERED: Sodium Chloride 0.9% 500 ML IV SCH (20:00)
--- NOTE | 2020-11-04 20:09 | PCM.PN ---
- General Info Date of Service: 11/04/20 Subjective Update: Provider was paged regarding patient c/o of abdominal pain. Patient is a minimally verbal down syndrome client at [facility] who was admitted initially for pneumonia 1 week ago. Nursing noting that patient has been crying in pain on/off for the last 24 hours. Patient has been refusing oral intake as well. Patient now c/o of abdominal pain when asked by nursing where it hurts. Nursing noted LUQ pain with their palpation. They also have concerns about her loose stools and redness/skin break down in the vulvar area - Review of Systems Cardiovascular: Reports: Lightheadedness - Patient Data Vitals - Most Recent: Last Vital Signs Temp 97.7 F 11/04/20 05:40 Pulse 52 L 11/04/20 05:45 Resp 15 11/04/20 05:40 BP 95/45 L 11/04/20 05:40 Pulse Ox 98 11/04/20 05:40 Weight - Most Recent: 125 lb I&O - Last 24 Hours: Intake & Output 11/04/20 11/04/20 11/04/20 06:59 14:59 22:59 Intake Total 190 60 Balance 190 60 Lab Results Last 24 Hours: Laboratory Results - last 24 hr 11/04/20 11/04/20 11/04/20 Range/Units 18:30 18:30 18:30 WBC 6.2 (4.0-10.0) x10^3/uL RBC 3.10 L (4.00-5.50) x10^6/uL Hgb 11.0 L (12.0-16.0) g/dL Hct 33.3 (33.0-47.0) % MCV 107.4 H (78.0-93.0) fL MCH 35.5 H (26.0-32.0) pg MCHC 33.0 (32.0-36.0) g/dL RDW Coeff of Ester 15.6 H (10.0-15.0) % Plt Count 680 H D (130-400) x10^3/uL Add Manual Diff Yes Neutrophils % (Manual) 59 (50-80) % Band Neutrophils % 4 (0-6) % Lymphocytes % (Manual) 25 (25-50) % Monocytes % (Manual) 11 (2-11) % Eosinophils % (Manual) 1 (0-4) % Platelet Estimate Marked inc H Giant Platelets Occasional H Anisocytosis 1+ slight H Macrocytosis 1+ slight H Spherocytes 1+ slight H ESR (0-20) mm/hr Sodium 137 (136-145) mmol/L Potassium 4.0 (3.5-5.1) mmol/L Chloride 98 (98-107) mmol/L Carbon Dioxide 33 H (21-32) mmol/L Anion Gap 10.0 (10-20) mmol/L BUN 12 (7-18) mg/dL Creatinine 1.5 H (0.55-1.02) mg/dL Est Cr Clr Drug Dosing 29.01 mL/min Estimated GFR (MDRD) 36 Glucose 110 H (74-106) mg/dL Lactic Acid 2.3 H* (0.4-2.0) mmol/L Calcium 8.8 (8.5-10.1) mg/dL Corrected Calcium 10.56 H (8.5-10.1) mg/dL Total Bilirubin 0.3 (0.2-1.0) mg/dL AST 33 (15-37) U/L ALT 18 (14-59) U/L Alkaline Phosphatase 159 H (46-116) U/L C-Reactive Protein 6.4 H (<=0.9) mg/dL Total Protein 7.3 (6.4-8.2) g/dL Albumin 1.8 L (3.4-5.0) g/dL Globulin 5.5 Albumin/Globulin Ratio 0.33 Lipase 161 (73-393) U/L 12/28/20 Range/Units 18:30 WBC (4.0-10.0) x10^3/uL RBC (4.00-5.50) x10^6/uL Hgb (12.0-16.0) g/dL Hct (33.0-47.0) % MCV (78.0-93.0) fL MCH (26.0-32.0) pg MCHC (32.0-36.0) g/dL RDW Coeff of Ester (10.0-15.0) % Plt Count (130-400) x10^3/uL Add Manual Diff Neutrophils % (Manual) (50-80) % Band Neutrophils % (0-6) % Lymphocytes % (Manual) (25-50) % Monocytes % (Manual) (2-11) % Eosinophils % (Manual) (0-4) % Platelet Estimate Giant Platelets Anisocytosis Macrocytosis Spherocytes ESR 47 H (0-20) mm/hr Sodium (136-145) mmol/L Potassium (3.5-5.1) mmol/L Chloride (98-107) mmol/L Carbon Dioxide (21-32) mmol/L Anion Gap (10-20) mmol/L BUN (7-18) mg/dL Creatinine (0.55-1.02) mg/dL Est Cr Clr Drug Dosing mL/min Estimated GFR (MDRD) Glucose (74-106) mg/dL Lactic Acid (0.4-2.0) mmol/L Calcium (8.5-10.1) mg/dL Corrected Calcium (8.5-10.1) mg/dL Total Bilirubin (0.2-1.0) mg/dL AST (15-37) U/L ALT (14-59) U/L Alkaline Phosphatase (46-116) U/L C-Reactive Protein (<=0.9) mg/dL Total Protein (6.4-8.2) g/dL Albumin (3.4-5.0) g/dL Globulin Albumin/Globulin Ratio Lipase (73-393) U/L Med Orders - Current: Current Medications Acetaminophen (Tylenol) 650 mg PO Q4H PRN PRN Reason: Pain (Mild 1-3)/fever Last Admin: 11/04/20 19:41 Dose: 650 mg Documented by: Artificial Tears (Genteal Mild To Moderate Ophth Soln) 0 ml EYEBOTH BID [facility] Last Admin: 11/04/20 19:42 Dose: 1 drop Documented by: Artificial Tears (Genteal Mild To Moderate Ophth Soln) 0 ml EYEBOTH Q2H PRN PRN Reason: Dry Eyes Calcium Carbonate/Glycine (Tums Extra Strength) 1,500 mg PO TID PRN PRN Reason: Abdominal Pain Last Admin: 11/04/20 11:51 Dose: 1,500 mg Documented by: Cholecalciferol (Vitamin D3) 50 mcg PO DAILY [facility] Last Admin: 11/04/20 09:45 Dose: 50 mcg Documented by: Divalproex Sodium (Depakote Sprinkle) 500 mg PO DAILY [facility] Last Admin: 11/04/20 09:45 Dose: 500 mg Documented by: Divalproex Sodium (Depakote Sprinkle) 750 mg PO BEDTIME [facility] Last Admin: 11/04/20 19:42 Dose: 750 mg Documented by: Donepezil HCl (Aricept) 10 mg PO BEDTIME [facility] Last Admin: 11/04/20 19:41 Dose: 10 mg Documented by: Sodium Chloride (Normal Saline) 500 mls @ 250 mls/hr IV ASDIRECTED [facility] Stop: 11/04/20 21:59 Levothyroxine Sodium (Synthroid) 88 mcg PO ACBREAKFAST [facility] Last Admin: 11/04/20 06:14 Dose: Not Given Documented by: Pediatric Multivit [ Children's Chewable Vitamin] 1 tab PO DAILY [facility] Last Admin: 11/04/20 09:46 Dose: Not Given Documented by: Polyethylene Glycol (Miralax) 8.5 gm PO MOWEFR@08 [facility] Last Admin: 11/04/20 09:45 Dose: Not Given Documented by: Sodium Chloride (Saline Flush) 10 ml FLUSH ASDIRECTED PRN PRN Reason: Keep Vein Open Discontinued Medications Cefdinir (Omnicef) 300 mg PO BID [facility] Stop: 11/04/20 20:01 Last Admin: 10/30/20 09:10 Dose: 300 mg Documented by: - Exam General: Alert, Moderate Distress (General: tearful and crying on/off although will perk up when distracted (smiled and waved at provider's daughter in hallway). ) Lungs: Normal Respiratory Effort Cardiovascular: Regular Rate, Regular Rhythm GI/Abdominal Exam: Normal Bowel Sounds, Soft, Distended, Tender (throughout/generalized), Other (no guarding, patient does not respond to rebound testing) (Female) Exam: Other (vulvar eryhtema) Skin: Warm, Dry Psy/Mental Status: Alert, Agitated Sepsis Event Note - Evaluation Sepsis Screening Result: No Definite Risk - Problem List Review Problem List Initiated/Reviewed/Updated: Yes - My Orders Last 24 Hours: My Active Orders 11/04/20 19:47 Sodium Chloride 0.9% [Saline Flush] 10 ml FLUSH ASDIRECTED PRN Peripheral IV Insertion Adult [OM.PC] Routine 11/04/20 20:00 Sodium Chloride 0.9% [Normal Saline] 500 ml IV ASDIRECTED - Assessment Assessment:: #Abdominal pain: -given patient's minimal interactions and c/o abdominal pain I did find it necessary to do some r/o lab testing: CBC, CMP, Lipase, CRP, ESR, and LA - Labs did come back with notable findings of LA of 2.3, Plt >600, elevated alk phos, and significantly elevated ESR/CRP - Will give a 500mL bolus of NS, recheck LA and CBC in 2 hours - Will add on UA as well - If patient still has c/o pain and plt remain elevated this may warrant a d.dimer or even abdominal imaging for possible thrombosis: patient would likely require sedation for the imaging if we do obtain this. #Vulvar erythema - Plan to apply barrier cream judiciously - If no improvement short leash to initiate antifungal for vulvovaginal candidiasis given recent abx use
[2020-11-05] MEDS: Levothyroxine 88 MCG Tab PO SCH (06:23)
[2020-11-05] MEDS: [UNRECOGNIZED DRUG - OTHER] PO SCH (09:45)
[2020-11-05] MEDS: Calcium Carbonate 750 MG Tab.Chew PO PRN ×2 (09:45→18:25)
[2020-11-05] MEDS: Cholecalciferol (Vitamin D3) 25 MCG Tab PO SCH (09:46)
[2020-11-05] MEDS: Divalproex Sodium Delayed-Release 125 MG Cap.Sprink PO SCH ×2 (09:47→20:29)
[2020-11-05] MEDS: Hypromellose 0.3% Ophth Soln 15 ML Bottle EYEBOTH SCH ×2 (09:48→20:30)
[2020-11-05] MEDS: Acetaminophen 325 MG Tab PO PRN (18:24)
[2020-11-05] MEDS: Donepezil 5 MG Tab PO SCH (20:28)
[2020-11-06] MEDS: Acetaminophen 325 MG Tab PO PRN (05:14)
[2020-11-06] MEDS: Calcium Carbonate 750 MG Tab.Chew PO PRN (05:15)
[2020-11-06] MEDS: Levothyroxine 88 MCG Tab PO SCH (05:59)
--- NOTE | 2020-11-06 09:32 | PCM.DCSUM1 ---
Discharge Summary - Hospital Course Brief History: Ms. Herron is a 60 yo female who was admitted to swing bed for strengthening after she was admitted to acute for treatment of a pneumonia complicated by a parapneumonic effusion. - Discharge Data Discharge Date: 11/06/20 Discharge Disposition: Home, Self-Care 01 Condition: Good - Referral to Home Health Primary Care Physician: Anna Iqbal MD - Discharge Diagnosis/Problem(s) (1) Pneumonia SNOMED Code(s): 333247412 ICD Code: J18.9 - PNEUMONIA, UNSPECIFIED ORGANISM Status: Acute Current Visit: No Qualifiers: Pneumonia type: due to unspecified organism Laterality: right Lung location: lower lobe of lung Qualified Code(s): J18.9 - Pneumonia, unspecified organism (2) Pleural effusion SNOMED Code(s): 51798561 ICD Code: J90 - PLEURAL EFFUSION, NOT ELSEWHERE CLASSIFIED Status: Acute Current Visit: No (3) Abdominal pain SNOMED Code(s): 94051454 ICD Code: R10.9 - UNSPECIFIED ABDOMINAL PAIN Status: Resolved Current Visit: No Qualifiers: Abdominal location: left lower quadrant Qualified Code(s): R10.32 - Left lower quadrant pain (4) Anemia SNOMED Code(s): 660576245 ICD Code: D64.9 - ANEMIA, UNSPECIFIED Status: Acute Current Visit: No Qualifiers: Anemia type: unspecified type Qualified Code(s): D64.9 - Anemia, unspecified (5) Dehydration SNOMED Code(s): 53968107 ICD Code: E86.0 - DEHYDRATION Status: Resolved Current Visit: No (6) Alzheimer disease SNOMED Code(s): 13314786 ICD Code: G30.9 - ALZHEIMER'S DISEASE, UNSPECIFIED; F02.80 - DEMENTIA IN OTH DISEASES CLASSD ELSWHR W/O BEHAVRL DISTURB Status: Chronic Current Visit: No Qualifiers: Alzheimer's disease onset: early-onset Dementia behavioral disturbance: without behavioral disturbance Qualified Code(s): G30.0 - Alzheimer's disease with early onset; F02.80 - Dementia in other diseases classified elsewhere without behavioral disturbance (7) Down syndrome SNOMED Code(s): 26419014 ICD Code: Q90.9 - DOWN SYNDROME, UNSPECIFIED Status: Chronic Current Visit: No (8) Hypothyroid SNOMED Code(s): 41462255 ICD Code: E03.9 - HYPOTHYROIDISM, UNSPECIFIED Status: Chronic Current Visit: No Qualifiers: Hypothyroidism type: acquired Qualified Code(s): E03.9 - Hypothyroidism, unspecified (9) Leukopenia SNOMED Code(s): 58249069, 715113095 ICD Code: D72.819 - DECREASED WHITE BLOOD CELL COUNT, UNSPECIFIED Status: Chronic Current Visit: No Qualifiers: Leukopenia type: unspecified Qualified Code(s): D72.819 - Decreased white blood cell count, unspecified (10) Seizure disorder SNOMED Code(s): 557411611 ICD Code: G40.909 - EPILEPSY, UNSP, NOT INTRACTABLE, WITHOUT STATUS EPILEPTICUS Status: Chronic Current Visit: No - Patient Summary/Data Operative Procedure(s) Performed: none Complications: none Consults: Consultations 10/28/20 11:56 OT Evaluation and Treatment [CONS] Routine PT Evaluation and Treatment [CONS] Routine Labs Pending at D/C: none Recommended Follow-up Testing/Procedures: CXR in 2 weeks Planned Operative Procedure(s) after DC: none Hospital Course: She was admitted to swing bed. PT and OT were consulted and worked with her for strengthening. She progressed well with therapies and is felt prepared for discharge back to her detention today. Her swing bed stay was complicated by abdominal pain that was felt to be secondary to the antibiotics; therefore, these were discontinued after 10 days of therapy. Her stool softeners have also been held. She did have a few episodes of diarrhea yesterday; therefore, a c difficile test was ordered. This has not been collected as her diarrhea is now resolved. Therefore, this is discontinued. I do anticipate she will do better in general once she is back to her usual environment at the detention. Her swing bed stay was otherwise uncomplicated. She will follow-up with me in clinic in 2 weeks at which time a chest x-ray will be repeated. - Patient Instructions Diet: Usual Diet as Tolerated Activity: As Tolerated Driving: Do Not Drive Showering/Bathing: May Shower - Discharge Plan *PRESCRIPTION DRUG MONITORING PROGRAM REVIEWED*: No *COPY OF PRESCRIPTION DRUG MONITORING REPORT IN PATIENT TOMMIE: No Home Medications: Home Meds Cholecalciferol (Vitamin D3) [Vitamin D3] 2,000 unit PO DAILY 03/11/19 [History] Carboxymethylcellulose Sodium [Refresh Tears] 1 drop OP BID 10/22/20 [History] Carboxymethylcellulose Sodium [Refresh Tears] 1 drop OP Q2H PRN 10/22/20 [History] Divalproex Sodium [Depakote Sprinkle] 500 mg PO DAILY 10/22/20 [History] Divalproex Sodium [Depakote Sprinkle] 750 mg PO BEDTIME 10/22/20 [History] Pediatric Multivit Comb No.144 [Children's Chewable Vitamin] 1 tab PO DAILY 10/23/20 [History] Acetaminophen [Tylenol] 650 mg PO Q4H PRN tablet 10/28/20 [Rx] Donepezil [Aricept] 10 mg PO BEDTIME tablet 10/28/20 [Rx] Levothyroxine [Synthroid] 88 mcg PO ACBREAKFAST tablet 10/28/20 [Rx] - Discharge Summary/Plan Comment DC Time >30 min.: No - General Info Date of Service: 11/06/20 Subjective Update: Patient did not sleep well last night and is quite tired this morning. She denies complaints and does not appear to be in any distress. - Review of Systems Systems Review Comment: unable to assess - Down Syndrome and dementia - Patient Data Vitals - Most Recent: Last Vital Signs Temp 35.8 C L 11/06/20 05:10 Pulse 65 11/06/20 05:10 Resp 18 11/06/20 05:10 BP 112/52 L 11/06/20 05:10 Pulse Ox 96 11/06/20 05:10 Weight - Most Recent: 59.421 kg I&O - Last 24 hours: Intake & Output 11/05/20 11/06/20 11/06/20 22:59 06:59 14:59 Intake Total 0 Balance 0 Med Orders - Current: Current Medications Acetaminophen (Tylenol) 650 mg PO Q4H PRN PRN Reason: Pain (Mild 1-3)/fever Last Admin: 11/06/20 05:14 Dose: 650 mg Documented by: Artificial Tears (Genteal Mild To Moderate Ophth Soln) 0 ml EYEBOTH BID KATIANA Last Admin: 11/05/20 20:30 Dose: 1 drop Documented by: Artificial Tears (Genteal Mild To Moderate Ophth Soln) 0 ml EYEBOTH Q2H PRN PRN Reason: Dry Eyes Calcium Carbonate/Glycine (Tums Extra Strength) 1,500 mg PO TID PRN PRN Reason: Abdominal Pain Last Admin: 11/06/20 05:15 Dose: 1,500 mg Documented by: Cholecalciferol (Vitamin D3) 50 mcg PO DAILY [facility] Last Admin: 11/05/20 09:46 Dose: 50 mcg Documented by: Divalproex Sodium (Depakote Sprinkle) 500 mg PO DAILY [facility] Last Admin: 11/05/20 09:47 Dose: 500 mg Documented by: Divalproex Sodium (Depakote Sprinkle) 750 mg PO BEDTIME [facility] Last Admin: 11/05/20 20:29 Dose: 750 mg Documented by: Donepezil HCl (Aricept) 10 mg PO BEDTIME [facility] Last Admin: 11/05/20 20:28 Dose: 10 mg Documented by: Levothyroxine Sodium (Synthroid) 88 mcg PO ACBREAKFAST [facility] Last Admin: 11/06/20 05:59 Dose: 88 mcg Documented by: Pediatric Multivit [ Children's Chewable Vitamin] 1 tab PO DAILY [facility] Last Admin: 11/05/20 09:45 Dose: 1 tab Documented by: Polyethylene Glycol (Miralax) 8.5 gm PO MOWEFR@08 [facility] Last Admin: 11/04/20 09:45 Dose: Not Given Documented by: Sodium Chloride (Saline Flush) 10 ml FLUSH ASDIRECTED PRN PRN Reason: Keep Vein Open Last Admin: 11/06/20 05:21 Dose: 10 ml Documented by: Discontinued Medications Cefdinir (Omnicef) 300 mg PO BID [facility] Stop: 11/04/20 20:01 Last Admin: 10/30/20 09:10 Dose: 300 mg Documented by: Sodium Chloride (Normal Saline) 500 mls @ 250 mls/hr IV ASDIRECTED [facility] Stop: 11/04/20 21:59 Last Admin: 11/04/20 21:24 Dose: 250 mls/hr Documented by: - Exam General: Reports: Cooperative, No Acute Distress, Other (resting in bed but does awake to voice) HEENT: Reports: Mucous Membr. Moist/[place] Neck: Reports: Supple, Trachea Midline, No Thyromegaly. Denies: Lymphadenopathy Lungs: Reports: Normal Respiratory Effort, Decreased Breath Sounds (RLL) Cardiovascular: Reports: Regular Rate, Regular Rhythm GI/Abdominal Exam: Normal Bowel Sounds, Soft, Non-Tender, No Organomegaly, No Distention, No Mass Extremities: Non-Tender, No Pedal Edema, Normal Capillary Refill Skin: Reports: Warm, Dry, Intact Neurological: Reports: No New Focal Deficit *Q Meaningful Use (DIS) - VTE *Q VTE Anticoagulation Contraindications: Med/TX Not Indicated/Need
[2020-11-06] MEDS: Divalproex Sodium Delayed-Release 125 MG Cap.Sprink PO SCH (10:13)
[2020-11-06] MEDS: Polyethylene Glycol 3350 Powder 17 GM Packet PO SCH (10:14)
[2020-11-06] MEDS: Cholecalciferol (Vitamin D3) 25 MCG Tab PO SCH (10:14)
[2020-11-06] MEDS: Hypromellose 0.3% Ophth Soln 15 ML Bottle EYEBOTH SCH (10:14)
[2020-11-06] MEDS: [UNRECOGNIZED DRUG - OTHER] PO SCH (10:14)
== END 2020-11-06 13:30 | disposition home or self-care (01) | DRG 947 ==
LOC: VM.MS 11:20
PROVIDERS: ADMIT Family Medicine; ATTEND Family Medicine
DX: R53.1 Weakness (principal); J18.9 Pneumonia, unspecified organism; J90 Pleural effusion, not elsewhere classified; R10.32 Left lower quadrant pain; D64.9 Anemia, unspecified; E86.0 Dehydration; G30.0 Alzheimer's disease with early onset; F02.80 Dementia in other diseases classified elsewhere, unspecified severity, without behavioral disturbance, psychotic disturbance, mood disturbance, and anxiety; Q90.9 Down syndrome, unspecified; E03.9 Hypothyroidism, unspecified; D72.819 Decreased white blood cell count, unspecified; G40.909 Epilepsy, unspecified, not intractable, without status epilepticus; T36.95XA Adverse effect of unspecified systemic antibiotic, initial encounter; R19.7 Diarrhea, unspecified; Z66 Do not resuscitate; L53.9 Erythematous condition, unspecified; E66.9 Obesity, unspecified; H54.7 Unspecified visual loss; H91.90 Unspecified hearing loss, unspecified ear; Z88.1 Allergy status to other antibiotic agents; Z79.890 Hormone replacement therapy; Z79.899 Other long term (current) drug therapy; Z68.27 Body mass index [BMI] 27.0-27.9, adult
CPT/HCPCS: 36415; 80053; 81003; 83605; 83690; 85025; 85652; 86140; 97116-GP; 97165-GO; 97530-GP; 97602-GP; A9270-GY; J7030

== ENCOUNTER 2020-11-09 19:45 | Inpatient (IN) | payer MEDICARE, MEDICAID ==
[2020-11-09] MEDS ORDERED: Sodium Chloride 0.9% 1,000 ML IV ONE (20:06)
--- NOTE | 2020-11-09 20:14 | EDM.PDOC ---
ED HPI GENERAL MEDICAL PROBLEM - General Chief Complaint: Gastrointestinal Problem Stated Complaint: ED VISIT Time Seen by Provider: 11/09/20 20:00 Source of Information: Reports: Other (caregiver) History Limitations: Reports: Other - History of Present Illness INITIAL COMMENTS - FREE TEXT/NARRATIVE: Patient presented today with caregiver [facility] with ongoing bouts of diarrhea for the last 3 days approximately 5 times a day loose watery stools. Patient was recently admitted 22 October here at the hospital for pneumonia treated with Omnicef then placed on swing bed 28 October and was discharged 06 November Per the caregiver she has not had any change of baseline but has been sleeping more with questionable lethargy. But has been acting herself she denies any Covid exposure no cough no fever but has had decreased eating and almost no p.o. intake and she normally apparently is a big water drinker. Duration: Day(s): Associated Symptoms: Denies: Confusion, Cough, Diaphoresis, Fever/Chills, Headaches, Nausea/Vomiting, Rash, Shortness of Breath, Weakness - Related Data Allergies Allergy/AdvReac Type Severity Reaction Status Date / Time cefaclor [From Ceclor] Allergy Cannot Verified 11/09/20 19:11 Remember cephalexin [From Keflex] Allergy Cannot Verified 11/09/20 19:11 Remember Cephalosporins Allergy Cannot Verified 11/09/20 19:11 Remember clindamycin Allergy Cannot Verified 11/09/20 19:11 Remember minocycline Allergy Cannot Verified 11/09/20 19:11 Remember phenobarbital Allergy Cannot Verified 11/09/20 19:11 Remember phenytoin [From Dilantin] Allergy Cannot Verified 11/09/20 19:11 Remember sulfamethoxazole Allergy Cannot Verified 11/09/20 19:11 [From Bactrim] Remember trimethoprim [From Bactrim] Allergy Cannot Verified 11/09/20 19:11 Remember Home Meds: Home Meds Cholecalciferol (Vitamin D3) [Vitamin D3] 2,000 unit PO DAILY 03/11/19 [History] Carboxymethylcellulose Sodium [Refresh Tears] 1 drop OP BID 10/22/20 [History] Carboxymethylcellulose Sodium [Refresh Tears] 1 drop OP Q2H PRN 10/22/20 [History] Divalproex Sodium [Depakote Sprinkle] 500 mg PO DAILY 10/22/20 [History] Divalproex Sodium [Depakote Sprinkle] 750 mg PO BEDTIME 10/22/20 [History] Pediatric Multivit Comb No.144 [Children's Chewable Vitamin] 1 tab PO DAILY 10/23/20 [History] Acetaminophen [Tylenol] 650 mg PO Q4H PRN tablet 10/28/20 [Rx] Donepezil [Aricept] 10 mg PO BEDTIME tablet 10/28/20 [Rx] Levothyroxine [Synthroid] 88 mcg PO ACBREAKFAST tablet 10/28/20 [Rx] Past Medical History HEENT History: Reports: Cataract, Hard of Hearing, Impaired Vision, Otitis Media, Other (See Below) Other HEENT History: Patient wears hearing aides in both ears. Esotropia of right eye. Astigmatism Cardiovascular History: Reports: Heart Murmur, High Cholesterol, Other (See Below) Other Cardiovascular History: Systolic murmur Respiratory History: Reports: None Gastrointestinal History: Reports: None Genitourinary History: Reports: UTI, Recurrent GREASE BUFFER History: Reports: Other (See Below) Other GREASE BUFFER History: Tight hymenal ring Musculoskeletal History: Reports: None Neurological History: Reports: Alzheimers Disease, Seizure, Other (See Below) Psychiatric History: Reports: Other (See Below) Other Psychiatric History: Daytime somnolence Endocrine/Metabolic History: Reports: Hypothyroidism, Obesity/BMI 30+, Other (See Below) Other Endocrine/Metabolic History: Abnormal weight loss Hematologic History: Reports: Other (See Below) Immunologic History: Reports: None Oncologic (Cancer) History: Reports: None Dermatologic History: Reports: None - Infectious Disease History Infectious Disease History: Reports: None - Past Surgical History HEENT Surgical History: Reports: Adenoidectomy, Tonsillectomy, Other (See Below) Other HEENT Surgeries/Procedures: Tympanomastoidectomy. Henangioma (lesion removed from right upper eyelid GI Surgical History: Reports: Other (See Below) Other GI Surgeries/Procedures: Colon cancer screening Female Surgical History: Reports: Tubal Ligation Social & Family History - Family History Oncologic: Reports: Prostate - Caffeine Use Caffeine Use: Reports: None - Living Situation & Occupation Living situation: Reports: Single, Assisted Living ([facility] apartment) Occupation: Retired ED ROS GENERAL - Review of Systems Review Of Systems: See Below Reason Not Obtained: per child day care provider Constitutional: Reports: No Symptoms. Denies: Fever, Chills, Weakness, Fatigue, Weight Gain HEENT: Reports: No Symptoms Respiratory: Denies: Shortness of Breath, Wheezing, Cough Cardiovascular: Reports: No Symptoms Endocrine: Reports: No Symptoms GI/Abdominal: Reports: Diarrhea, Decreased Appetite. Denies: Abdominal Pain, Black Stool, Bloody Stool, Constipation, Distension, Mucous in Stool, Nausea, Stool Incontinence, Vomiting : Reports: No Symptoms Musculoskeletal: Reports: No Symptoms Skin: Reports: No Symptoms Neurological: Reports: No Symptoms, Other (No change in baseline) Psychiatric: Reports: No Symptoms Hematologic/Lymphatic: Reports: No Symptoms Immunologic: Reports: No Symptoms ED EXAM, GI/ABD - Physical Exam Exam: See Below Exam Limited By: Other General Appearance: Alert, WD/WN, No Apparent Distress, Other (Patient will say hi smile when talked to appeers no acute distress states shes cold ) Eyes: Bilateral: Normal Appearance Ears: Normal External Exam, Normal Canal, Normal TMs Nose: Normal Inspection, Normal Mucosa, No Blood Throat/Mouth: Normal Inspection, Normal Lips, Normal Teeth, Normal Gums, Normal Oropharynx, No Airway Compromise, Other (mmm) Head: Atraumatic, Normocephalic Neck: Normal Inspection, Supple, Non-Tender, Full Range of Motion Respiratory/Chest: No Respiratory Distress, Lungs Clear, Normal Breath Sounds, No Accessory Muscle Use, Chest Non-Tender Cardiovascular: Normal Peripheral Pulses, Regular Rate, Rhythm, No Edema, No Gallop, No JVD, No Murmur, No Rub GI/Abdominal Exam: Soft, Non-Tender, No Organomegaly, No Distention. No: Guarding, Rigid, Rebound, Tender (mild increased BS no noted grimice noted with palpation ) Extremities: Normal Inspection, Normal Range of Motion, Non-Tender, No Pedal Edema, Other (+1 blat pedal edema ) Neurological: Alert, Oriented, CN II-XII Intact (CN2-12 grossly intact ) Psychiatric: Normal Affect, Normal Mood Skin Exam: Warm, Dry, Intact, Normal Color, No Rash Course - Vital Signs Text/Narrative:: CBC BMP CT of secondary to patient being on mildly hypotensive 1 L normal saline bolus Patient will be admitted acutely secondary to dyspnea and discharged Wednesday with a diagnosis of 1 dehydration 2 hypotension 3 diarrhea Last Recorded V/S: Last Vital Signs Temp 36.9 C 11/09/20 19:50 Pulse 68 11/09/20 20:10 Resp 16 11/09/20 20:10 BP 98/36 L 11/09/20 20:10 Pulse Ox 97 11/09/20 19:50 - Orders/Labs/Meds Orders: Active Orders 24 hr Category Date Time Status CLOSTRIDIUM DIFFICILE TOX RFLX [MREF] Stat Lab 11/09/20 20:06 Ordered Isolation [COMM] Stat Oth 11/09/20 20:08 Ordered Labs: Laboratory Tests 11/09/20 11/09/20 11/09/20 Range/Units 19:50 19:50 20:55 WBC 5.0 (4.0-10.0) x10^3/uL RBC 3.47 L (4.00-5.50) x10^6/uL Hgb 12.6 D (12.0-16.0) g/dL Hct 36.7 (33.0-47.0) % MCV 105.8 H (78.0-93.0) fL MCH 36.3 H (26.0-32.0) pg MCHC 34.3 (32.0-36.0) g/dL RDW Coeff of Ester 15.4 H (10.0-15.0) % Plt Count 446 H D (130-400) x10^3/uL Add Manual Diff Yes Neutrophils % (Manual) 60 (50-80) % Band Neutrophils % 13 H (0-6) % Lymphocytes % (Manual) 16 L (25-50) % Monocytes % (Manual) 9 (2-11) % Metamyelocytes % 2 H (0) % Platelet Estimate Increased H Anisocytosis 1+ slight H Macrocytosis 1+ slight H Sodium 138 (136-145) mmol/L Potassium 4.0 (3.5-5.1) mmol/L Chloride 100 (98-107) mmol/L Carbon Dioxide 31 (21-32) mmol/L Anion Gap 11.0 (10-20) mmol/L BUN 19 H (7-18) mg/dL Creatinine 1.7 H (0.55-1.02) mg/dL Est Cr Clr Drug Dosing 25.59 mL/min Estimated GFR (MDRD) 31 Glucose 99 (74-106) mg/dL Calcium 8.7 (8.5-10.1) mg/dL SARS CoV-2 RNA Rapid СВЕТЛАНА Negative (NEGATIVE) Meds: Medications Discontinued Medications Generic Name Dose Route Start Last Admin Trade Name Mauricio PRN Reason Stop Dose Admin Sodium Chloride 1,000 mls @ 999 mls/hr 11/09/20 20:06 11/09/20 19:55 Normal Saline IV 11/09/20 21:06 999 mls/hr ONETIME ONE Administration Departure - Departure Time of Disposition: 21:00 Disposition: Admitted As Inpatient 66 Condition: Fair Clinical Impression: Hypotension, Dehydration, Diarrhea - Discharge Information *PRESCRIPTION DRUG MONITORING PROGRAM REVIEWED*: Not Applicable *COPY OF PRESCRIPTION DRUG MONITORING REPORT IN PATIENT TOMMIE: Not Applicable Referrals: Anna Iqbal MD [Primary Care Provider] - Forms: ED Department Discharge Sepsis Event Note (ED) - Focused Exam Vital Signs: Vital Signs Temp Pulse Resp BP Pulse Ox 11/09/20 20:10 68 16 98/36 L 11/09/20 19:50 36.9 C 64 16 75/49 L 97 - Problem List & Annotations (1) Dehydration SNOMED Code(s): 99734956 Code(s): E86.0 - DEHYDRATION Status: Acute Current Visit: Yes (2) Diarrhea SNOMED Code(s): 78881777 Code(s): R19.7 - DIARRHEA, UNSPECIFIED Status: Acute Current Visit: Yes (3) Hypotension SNOMED Code(s): 54999853 Code(s): I95.9 - HYPOTENSION, UNSPECIFIED Status: Acute Current Visit: Yes - My Orders Last 24 Hours: My Active Orders 11/09/20 20:06 CLOSTRIDIUM DIFFICILE TOX RFLX [MREF] Stat 11/09/20 20:08 Isolation [COMM] Stat - Assessment/Plan Admission H&P: Please use this note as an admission H&P Last 24 Hours: My Active Orders 11/09/20 20:06 CLOSTRIDIUM DIFFICILE TOX RFLX [MREF] Stat 11/09/20 20:08 Isolation [COMM] Stat
[2020-11-09] MEDS ORDERED: Hypromellose 0.3% Ophth Soln 15 ML Bottle EYEBOTH PRN (22:16)
[2020-11-09] MEDS ORDERED: Acetaminophen 325 MG Tab PO PRN (22:16)
--- NOTE | 2020-11-09 22:16 | PCM.HP.2 ---
H&P History of Present Illness - General Date of Service: 11/09/20 Admit Problem/Dx: Admission Diagnosis/Problem Admission Diagnosis/Problem Hypotension, Dehydration, Diarrhea - History of Present Illness Initial Comments - Free Text/Narative: Mariola is a 60yoF, minimally verbal down syndrome [facility] client who presents today with 3 days of diarrhea. She was recently admitted on 10/22/20 with pneumonia, discharged on 11/06/20. Since discharge patient has been sleeping more and her oral intake has been poor. She has had up to 5 bouts of watery diarrhea per day since returning home to the [facility]. On arrival to the ED BP was 75/49, labs notable for BUN 19 and Cr. 1.7 (baseline 1.0-1.2). Electrolytes are WNL. She was given 1L of fluid with mild improvement of her BP. - Related Data Allergies/Adverse Reactions: Allergies Allergy/AdvReac Type Severity Reaction Status Date / Time cefaclor [From Ceclor] Allergy Cannot Verified 11/09/20 19:11 Remember cephalexin [From Keflex] Allergy Cannot Verified 11/09/20 19:11 Remember Cephalosporins Allergy Cannot Verified 11/09/20 19:11 Remember clindamycin Allergy Cannot Verified 11/09/20 19:11 Remember minocycline Allergy Cannot Verified 11/09/20 19:11 Remember phenobarbital Allergy Cannot Verified 11/09/20 19:11 Remember phenytoin [From Dilantin] Allergy Cannot Verified 11/09/20 19:11 Remember sulfamethoxazole Allergy Cannot Verified 11/09/20 19:11 [From Bactrim] Remember trimethoprim [From Bactrim] Allergy Cannot Verified 11/09/20 19:11 Remember Home Medications: Home Meds Cholecalciferol (Vitamin D3) [Vitamin D3] 2,000 unit PO DAILY 03/11/19 [History] Carboxymethylcellulose Sodium [Refresh Tears] 1 drop OP BID 10/22/20 [History] Carboxymethylcellulose Sodium [Refresh Tears] 1 drop OP Q2H PRN 10/22/20 [History] Divalproex Sodium [Depakote Sprinkle] 500 mg PO DAILY 10/22/20 [History] Divalproex Sodium [Depakote Sprinkle] 750 mg PO BEDTIME 10/22/20 [History] Pediatric Multivit Comb No.144 [Children's Chewable Vitamin] 1 tab PO DAILY 10/23/20 [History] Acetaminophen [Tylenol] 650 mg PO Q4H PRN tablet 10/28/20 [Rx] Donepezil [Aricept] 10 mg PO BEDTIME tablet 10/28/20 [Rx] Levothyroxine [Synthroid] 88 mcg PO ACBREAKFAST tablet 10/28/20 [Rx] Past Medical History HEENT History: Reports: Cataract, Hard of Hearing, Impaired Vision, Otitis Media, Other (See Below) Other HEENT History: Patient wears hearing aides in both ears. Esotropia of right eye. 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 (See Below) Other OB/BYN History: Tight hymenal ring Musculoskeletal History: Reports: None Neurological History: Reports: Alzheimers Disease, Seizure, Other (See Below) Psychiatric History: Reports: Other (See Below) Other Psychiatric History: Daytime somnolence Endocrine/Metabolic History: Reports: Hypothyroidism, Obesity/BMI 30+, Other (See Below) Other Endocrine/Metabolic History: Abnormal weight loss Hematologic History: Reports: Other (See Below) Immunologic History: Reports: None Oncologic (Cancer) History: Reports: None Dermatologic History: Reports: None - Infectious Disease History Infectious Disease History: Reports: None - Past Surgical History HEENT Surgical History: Reports: Adenoidectomy, Tonsillectomy, Other (See Below) Other HEENT Surgeries/Procedures: Tympanomastoidectomy. Henangioma (lesion removed from right upper eyelid GI Surgical History: Reports: Other (See Below) Other GI Surgeries/Procedures: Colon cancer screening Female Surgical History: Reports: Tubal Ligation Social & Family History - Family History Oncologic: Reports: Prostate - Tobacco Use Tobacco Use Status *Q: Never Tobacco User - Caffeine Use Caffeine Use: Reports: None - Living Situation & Occupation Living situation: Reports: Single, Assisted Living ([facility] apartment) Occupation: Retired H&P Review of Systems - Review of Systems: Review Of Systems: Unable To Obtain Reason Not Obtained: Patient has downs syndrome, answers clinton-negative ROS when asked General: Reports: No Symptoms HEENT: Reports: No Symptoms Pulmonary: Reports: No Symptoms Cardiovascular: Reports: No Symptoms Gastrointestinal: Reports: No Symptoms Musculoskeletal: Reports: No Symptoms Skin: Reports: No Symptoms Exam - Exam Exam: See Below - Vital Signs Vital Signs: Last Vital Signs Temp 98.5 F 11/09/20 19:50 Pulse 68 11/09/20 20:10 Resp 16 11/09/20 20:10 BP 98/36 L 11/09/20 20:10 Pulse Ox 97 11/09/20 19:50 Weight: 130 lb - Exam General: Alert, Oriented HEENT: EOMI, Other (lips dry and cracked, oral mucosa moist) Neck: Supple Lungs: Clear to Auscultation, Normal Respiratory Effort Cardiovascular: Regular Rate, Regular Rhythm GI/Abdominal Exam: Normal Bowel Sounds, Soft, Non-Tender Skin: Warm, Dry Neuro Extensive - Mental Status: Alert, Oriented x3, Normal Mood/Affect Psychiatric: Alert, Normal Affect - Patient Data Lab Results Last 24 hrs: Laboratory Results - last 24 hr 11/09/20 11/09/20 11/09/20 Range/Units 19:50 19:50 20:55 WBC 5.0 (4.0-10.0) x10^3/uL RBC 3.47 L (4.00-5.50) x10^6/uL Hgb 12.6 D (12.0-16.0) g/dL Hct 36.7 (33.0-47.0) % MCV 105.8 H (78.0-93.0) fL MCH 36.3 H (26.0-32.0) pg MCHC 34.3 (32.0-36.0) g/dL RDW Coeff of Ester 15.4 H (10.0-15.0) % Plt Count 446 H D (130-400) x10^3/uL Add Manual Diff Yes Neutrophils % (Manual) 60 (50-80) % Band Neutrophils % 13 H (0-6) % Lymphocytes % (Manual) 16 L (25-50) % Monocytes % (Manual) 9 (2-11) % Metamyelocytes % 2 H (0) % Platelet Estimate Increased H Anisocytosis 1+ slight H Macrocytosis 1+ slight H Sodium 138 (136-145) mmol/L Potassium 4.0 (3.5-5.1) mmol/L Chloride 100 (98-107) mmol/L Carbon Dioxide 31 (21-32) mmol/L Anion Gap 11.0 (10-20) mmol/L BUN 19 H (7-18) mg/dL Creatinine 1.7 H (0.55-1.02) mg/dL Est Cr Clr Drug Dosing 25.59 mL/min Estimated GFR (MDRD) 31 Glucose 99 (74-106) mg/dL Calcium 8.7 (8.5-10.1) mg/dL SARS CoV-2 RNA Rapid СВЕТЛАНА Negative (NEGATIVE) Result Diagrams: 11/09/20 19:50 11/09/20 19:50 Sepsis Event Note - Evaluation Sepsis Screening Result: No Definite Risk - Focused Exam Vital Signs: Vital Signs Temp Pulse Resp BP Pulse Ox 11/09/20 20:10 68 16 98/36 L 11/09/20 19:50 98.5 F 64 16 75/49 L 97 - Problem List (1) Dehydration SNOMED Code(s): 22605038 ICD Code: E86.0 - DEHYDRATION Status: Acute Current Visit: Yes (2) Diarrhea SNOMED Code(s): 73759905 ICD Code: R19.7 - DIARRHEA, UNSPECIFIED Status: Acute Current Visit: Yes (3) Hypotension SNOMED Code(s): 16424607 ICD Code: I95.9 - HYPOTENSION, UNSPECIFIED Status: Acute Current Visit: Yes (4) Acute kidney injury SNOMED Code(s): 36382527, 83751512 ICD Code: N17.9 - ACUTE KIDNEY FAILURE, UNSPECIFIED Status: Acute Current Visit: No (5) Seizure SNOMED Code(s): 78053132 ICD Code: R56.9 - UNSPECIFIED CONVULSIONS Status: Acute Priority: Medium Current Visit: No (6) Alzheimer disease SNOMED Code(s): 33797577 ICD Code: G30.9 - ALZHEIMER'S DISEASE, UNSPECIFIED; F02.80 - DEMENTIA IN OTH DISEASES CLASSD ELSWHR W/O BEHAVRL DISTURB Status: Chronic Current Visit: No (7) Down syndrome SNOMED Code(s): 26642656 ICD Code: Q90.9 - DOWN SYNDROME, UNSPECIFIED Status: Chronic Current Visit: No (8) Hypothyroid SNOMED Code(s): 27609821 ICD Code: E03.9 - HYPOTHYROIDISM, UNSPECIFIED Status: Chronic Current Visit: No Qualifiers: Hypothyroidism type: acquired Qualified Code(s): E03.9 - Hypothyroidism, unspecified Problem List Initiated/Reviewed/Updated: Yes Orders Last 24hrs: Active Orders 24 hr Category Date Time Status Patient Status [ADT] Routine ADT 11/09/20 22:05 Active Patient Status [ADT] Stat ADT 11/09/20 21:19 Active Cardiac Monitoring [RC] . DIRECTED Care 11/09/20 21:19 Active Oxygen Therapy [RC] PRN Care 11/09/20 22:05 Active VTE/DVT Education [RC] PER UNIT ROUTINE Care 11/09/20 22:05 Active Vital Signs [RC] Q4H Care 11/09/20 22:05 Active BASIC METABOLIC PANEL,BMP [CHEM] AM Lab 11/10/20 05:11 Ordered CBC WITH AUTO DIFF [HEME] AM Lab 11/10/20 05:11 Ordered CLOSTRIDIUM DIFFICILE TOX RFLX [MREF] Stat Lab 11/09/20 19:00 Received Heparin Sodium Med 11/09/20 22:15 Ordered 5,000 units SUBCUT Q8H Isolation [COMM] Stat Oth 11/09/20 20:08 Ordered Resuscitation Status Routine Resus Stat 11/09/20 22:05 Ordered Medication Orders Heparin Sodium (Porcine) (Heparin Sodium) 5,000 units SUBCUT Q8H [place]NA Assessment/Plan Comment:: Mariola is a 60yoF who is admitted for dehydation, hypotension, diarrhea in the setting of recent antibiotic use. #1 Dehydration/hypotension #2 GWYN on CKD #3 Diarrhea - BP hypotensive on admit - Patient s/p 1L NS in the ER - Cr 1.7 on admit (baseline 1.0-1.2) Plan: - Continue NS at 75mL/hr - C.diff pending - Isolation - Recheck BMP in the am #4 Seizures disorder - On depakote Plan: - Continue home meds #5 Alzheimers - On aricept Plan: - Continue home meds #6 Hypothyroidism - On levothyroxine Plan: - Continue home meds Diet: Regular DVT: SQ heparin, monitor CBC daily Code: DNR/DNI Disposition: anticipate patient will need 1-2 days of IV fluids, If c.diff posit bulmaro will plan to treat with PO vanco - Mortality Measure Prognosis:: Good
[2020-11-09] MEDS: Heparin Sodium 5,000 Units/ML Vial SUBCUT SCH (23:58)
[2020-11-10] MEDS: Hypromellose 0.3% Ophth Soln 15 ML Bottle EYEBOTH SCH ×3 (00:12→20:35)
[2020-11-10] MEDS: Sodium Chloride 0.9% 1,000 ML IV SCH ×2 (06:12→21:50)
[2020-11-10] MEDS: Heparin Sodium 5,000 Units/ML Vial SUBCUT SCH ×3 (06:12→21:49)
[2020-11-10] MEDS: Levothyroxine 88 MCG Tab PO SCH (06:12)
[2020-11-10] MEDS: Divalproex Sodium Delayed-Release 125 MG Cap.Sprink PO SCH ×2 (09:15→20:33)
--- NOTE | 2020-11-10 10:16 | PCM.PN ---
- General Info Date of Service: 11/10/20 Admission Dx/Problem (Free Text): Admission Diagnosis/Problem Admission Diagnosis/Problem Hypotension, Dehydration, Diarrhea Subjective Update: Mariola is a 60yoF, minimally verbal down syndrome [facility] client who is HD #2 for hypotension, diarrhea, dehydration. She was recently admitted on 10/22/20 with pneumonia, discharged on 11/06/20. Since discharge patient has been sleeping more and her oral intake has been poor. She has had up to 5 bouts of watery diarrhea per day since returning home to the [facility]. Patient did well overnight. No complaints from nursing. VSS. Labs demonstrating hemodilution from the fluid resuscitation. She is eating, drinking, voiding well. - Review of Systems General: Reports: No Symptoms HEENT: Reports: No Symptoms Pulmonary: Reports: No Symptoms Cardiovascular: Reports: No Symptoms Gastrointestinal: Reports: No Symptoms Genitourinary: Reports: No Symptoms Musculoskeletal: Reports: No Symptoms Skin: Reports: No Symptoms - Patient Data Vitals - Most Recent: Last Vital Signs Temp 97.5 F 11/10/20 09:48 Pulse 66 11/10/20 09:48 Resp 16 11/10/20 09:48 BP 111/57 L 11/10/20 09:48 Pulse Ox 96 11/10/20 09:48 Weight - Most Recent: 129 lb 15.753 oz I&O - Last 24 Hours: Intake & Output 11/09/20 11/10/20 11/10/20 22:59 06:59 14:59 Intake Total 900 Balance 900 Lab Results Last 24 Hours: Laboratory Results - last 24 hr 11/09/20 11/09/20 11/09/20 Range/Units 19:50 19:50 20:55 WBC 5.0 (4.0-10.0) x10^3/uL RBC 3.47 L (4.00-5.50) x10^6/uL Hgb 12.6 D (12.0-16.0) g/dL Hct 36.7 (33.0-47.0) % MCV 105.8 H (78.0-93.0) fL MCH 36.3 H (26.0-32.0) pg MCHC 34.3 (32.0-36.0) g/dL RDW Coeff of Ester 15.4 H (10.0-15.0) % Plt Count 446 H D (130-400) x10^3/uL Add Manual Diff Yes Neutrophils % (Manual) 60 (50-80) % Band Neutrophils % 13 H (0-6) % Lymphocytes % (Manual) 16 L (25-50) % Monocytes % (Manual) 9 (2-11) % Eosinophils % (Manual) (0-4) % Metamyelocytes % 2 H (0) % Platelet Estimate Increased H Anisocytosis 1+ slight H Macrocytosis 1+ slight H Sodium 138 (136-145) mmol/L Potassium 4.0 (3.5-5.1) mmol/L Chloride 100 (98-107) mmol/L Carbon Dioxide 31 (21-32) mmol/L Anion Gap 11.0 (10-20) mmol/L BUN 19 H (7-18) mg/dL Creatinine 1.7 H (0.55-1.02) mg/dL Est Cr Clr Drug Dosing 25.59 mL/min Estimated GFR (MDRD) 31 Glucose 99 (74-106) mg/dL Calcium 8.7 (8.5-10.1) mg/dL SARS CoV-2 RNA Rapid СВЕТЛАНА Negative (NEGATIVE) 11/10/20 11/10/20 Range/Units 07:47 07:47 WBC 3.3 L (4.0-10.0) x10^3/uL RBC 2.80 L (4.00-5.50) x10^6/uL Hgb 9.8 L D (12.0-16.0) g/dL Hct 30.4 L (33.0-47.0) % MCV 108.6 H (78.0-93.0) fL MCH 35.0 H (26.0-32.0) pg MCHC 32.2 (32.0-36.0) g/dL RDW Coeff of Ester 15.4 H (10.0-15.0) % Plt Count 352 D (130-400) x10^3/uL Add Manual Diff Yes Neutrophils % (Manual) 53 (50-80) % Band Neutrophils % (0-6) % Lymphocytes % (Manual) 41 (25-50) % Monocytes % (Manual) 3 (2-11) % Eosinophils % (Manual) 1 (0-4) % Metamyelocytes % 2 H (0) % Platelet Estimate Adequate Anisocytosis Macrocytosis 1+ slight H Sodium 141 (136-145) mmol/L Potassium 4.0 (3.5-5.1) mmol/L Chloride 106 (98-107) mmol/L Carbon Dioxide 33 H (21-32) mmol/L Anion Gap 6.0 L (10-20) mmol/L BUN 16 (7-18) mg/dL Creatinine 1.4 H (0.55-1.02) mg/dL Est Cr Clr Drug Dosing 31.08 mL/min Estimated GFR (MDRD) 38 Glucose 79 (74-106) mg/dL Calcium 8.4 L (8.5-10.1) mg/dL SARS CoV-2 RNA Rapid СВЕТЛАНА (NEGATIVE) Med Orders - Current: Current Medications Acetaminophen (Tylenol) 650 mg PO Q4H PRN PRN Reason: Pain (Mild 1-3)/fever Artificial Tears (Genteal Mild To Moderate Ophth Soln) 0 ml EYEBOTH BID [facility] Last Admin: 11/10/20 09:15 Dose: 1 drop Documented by: Artificial Tears (Genteal Mild To Moderate Ophth Soln) 0 ml EYEBOTH Q2H PRN PRN Reason: Dry Eyes Divalproex Sodium (Depakote Sprinkle) 500 mg PO DAILY [facility] Last Admin: 11/10/20 09:15 Dose: 500 mg Documented by: Divalproex Sodium (Depakote Sprinkle) 750 mg PO BEDTIME [facility] Donepezil HCl (Aricept) 10 mg PO BEDTIME [facility]NA Heparin Sodium (Porcine) (Heparin Sodium) 5,000 units SUBCUT Q8H [facility] Last Admin: 11/10/20 06:12 Dose: 5,000 units Documented by: Sodium Chloride (Normal Saline) 1,000 mls @ 50 mls/hr IV ASDIRECTED KATIANA Last Admin: 11/10/20 06:12 Dose: 75 mls/hr Documented by: Levothyroxine Sodium (Synthroid) 88 mcg PO ACBREAKFAST [facility] Last Admin: 11/10/20 06:12 Dose: 88 mcg Documented by: Non-Formulary Medication (Pediatric Multivit Comb No.144 [Children's Chewable Vitamin]) 1 tab PO DAILY [facility] Discontinued Medications Sodium Chloride (Normal Saline) 1,000 mls @ 999 mls/hr IV ONETIME ONE Stop: 11/09/20 21:06 Last Admin: 11/09/20 19:55 Dose: 999 mls/hr Documented by: - Exam General: Alert, Oriented HEENT: Pupils Equal, Mucous Membr. Moist/[place] (lips are dry/cracked though) Neck: Supple Lungs: Clear to Auscultation, Normal Respiratory Effort Cardiovascular: Regular Rate, Regular Rhythm GI/Abdominal Exam: Normal Bowel Sounds, Soft, Non-Tender, No Distention Extremities: Normal Inspection, Normal Range of Motion, Non-Tender, No Pedal Edema Skin: Warm, Dry Wound/Incisions: Healing Well Psy/Mental Status: Alert, Normal Affect, Normal Mood Sepsis Event Note - Evaluation Sepsis Screening Result: No Definite Risk - Focused Exam Vital Signs: Vital Signs Temp Temp Pulse Resp BP Pulse Ox 11/10/20 09:48 97.5 F 66 16 111/57 L 96 11/10/20 06:00 98.2 F 59 L 18 122/51 L 96 11/10/20 02:00 96.6 F L 54 L 18 98/51 L 100 - Problem List & Annotations (1) Dehydration SNOMED Code(s): 32841860 Code(s): E86.0 - DEHYDRATION Status: Acute Current Visit: Yes (2) Diarrhea SNOMED Code(s): 22958332 Code(s): R19.7 - DIARRHEA, UNSPECIFIED Status: Acute Current Visit: Yes (3) Hypotension SNOMED Code(s): 23287705 Code(s): I95.9 - HYPOTENSION, UNSPECIFIED Status: Acute Current Visit: Yes (4) Acute kidney injury SNOMED Code(s): 75489816, 60290387 Code(s): N17.9 - ACUTE KIDNEY FAILURE, UNSPECIFIED Status: Acute Current Visit: No (5) Seizure SNOMED Code(s): 27365465 Code(s): R56.9 - UNSPECIFIED CONVULSIONS Status: Acute Priority: Medium Current Visit: No (6) Alzheimer disease SNOMED Code(s): 05893014 Code(s): G30.9 - ALZHEIMER'S DISEASE, UNSPECIFIED; F02.80 - DEMENTIA IN OTH D ISEASES CLASSD ELSWHR W/O BEHAVRL DISTURB Status: Chronic Current Visit: No (7) Down syndrome SNOMED Code(s): 79514915 Code(s): Q90.9 - DOWN SYNDROME, UNSPECIFIED Status: Chronic Current Visit: No (8) Hypothyroid SNOMED Code(s): 55910074 Code(s): E03.9 - HYPOTHYROIDISM, UNSPECIFIED Status: Chronic Current Vis it: No Qualifiers: Hypothyroidism type: acquired Qualified Code(s): E03.9 - Hypothyroidism, unspecified - Problem List Review Problem List Initiated/Reviewed/Updated: Yes - My Orders Last 24 Hours: My Active Orders 11/09/20 22:05 Patient Status [ADT] Routine Oxygen Therapy [RC] .PRN VTE/DVT Education [RC] .PRN Vital Signs [RC] 02,06,10,14,18,22 Resuscitation Status Routine 11/09/20 22:15 Heparin Sodium 5,000 units SUBCUT Q8H 11/09/20 22:16 Acetaminophen [TylenoL] 650 mg PO Q4H PRN Hypromellose [GenTeal Mild to Moderate Ophth Soln] 0 ml EYEBOTH Q2H PRN 11/09/20 22:45 Sodium Chloride 0.9% [Normal Saline] 1,000 ml IV ASDIRECTED 11/10/20 07:00 Levothyroxine [Synthroid] 88 mcg PO ACBREAKFAST 11/10/20 08:00 Divalproex Sodium [Depakote Sprinkle] 500 mg PO DAILY Pediatric Multivit Comb No.144 [Children's Chewable Vitamin] 1 tab PO DAILY 11/10/20 20:00 Divalproex Sodium [Depakote Sprinkle] 750 mg PO BEDTIME Donepezil [Aricept] 10 mg PO BEDTIME 11/11/20 07:00 BASIC METABOLIC PANEL,BMP [CHEM] Routine CBC WITH AUTO DIFF [HEME] Routine - Plan Plan:: Mariola is a 60yoF who is HD #2 for dehydation, hypotension, diarrhea in the setting of recent antibiotic use. #1 Dehydration/hypotension #2 GWYN on CKD, improving #3 Diarrhea - BP hypotensive on admit, improved with fluid hydration - Patient s/p 1L NS in the ER - Cr 1.7 on admit, down to 1.4 today (baseline 1.0-1.2) Plan: - NS decreased to 50mL/hr (due to hemodilution) - C.diff pending - Isolation - Recheck BMP in the am #4 Seizures disorder - On depakote Plan: - Continue home meds #5 Alzheimers - On aricept Plan: - Continue home meds #6 Hypothyroidism - On levothyroxine Plan: - Continue home meds Diet: Regular DVT: SQ heparin, monitor CBC daily Code: DNR/DNI Disposition: anticipate patient will need 1-2 days of IV fluids, If c.diff positive will plan to treat with PO [place]
[2020-11-10] MEDS: Donepezil 10 MG Tab PO SCH (20:33)
[2020-11-11] MEDS: Levothyroxine 88 MCG Tab PO SCH (06:13)
[2020-11-11] MEDS: Heparin Sodium 5,000 Units/ML Vial SUBCUT SCH ×3 (06:14→21:15)
[2020-11-11 06:58] LABS: ANION GAP 8.1 mmol/L (10-20)
[2020-11-11] MEDS: Hypromellose 0.3% Ophth Soln 15 ML Bottle EYEBOTH SCH ×2 (08:40→20:58)
[2020-11-11] MEDS: Divalproex Sodium Delayed-Release 125 MG Cap.Sprink PO SCH ×2 (08:40→20:55)
[2020-11-11] MEDS: [UNRECOGNIZED DRUG - OTHER] PO SCH ×2 (09:11→09:12)
--- NOTE | 2020-11-11 09:58 | PCM.PN ---
- General Info Date of Service: 11/11/20 Subjective Update: 60 yo female hospital day #3 admitted with dehydration secondary to diarrhea. Patient is resting in bed. She opens her eyes but will not answer questions this morning. Most history obtained from nursing and chart review. Patient has still been having 3 stools/day. Yesterday stools were more soft than watery. Patient is not eating very well as she seems not to like foods that have "chunks" in them. Is eating soft foods and drinking ok. No fever. - Review of Systems Systems Review Comment:: Unable to obtain - dementia and Down Syndrome - Patient Data Vitals - Most Recent: Last Vital Signs Temp 36.3 C 11/11/20 05:37 Pulse 56 L 11/11/20 05:37 Resp 14 11/11/20 05:37 BP 117/63 11/11/20 05:37 Pulse Ox 97 11/11/20 05:37 Weight - Most Recent: 58.96 kg I&O - Last 24 Hours: Intake & Output 11/10/20 11/11/20 11/11/20 22:59 06:59 14:59 Intake Total 1047 600 Balance 1047 600 Lab Results Last 24 Hours: Laboratory Results - last 24 hr 11/11/20 11/11/20 Range/Units 06:35 06:35 WBC 3.7 L (4.0-10.0) x10^3/uL RBC 2.92 L (4.00-5.50) x10^6/uL Hgb 10.2 L (12.0-16.0) g/dL Hct 31.2 L (33.0-47.0) % MCV 106.8 H (78.0-93.0) fL MCH 34.9 H (26.0-32.0) pg MCHC 32.7 (32.0-36.0) g/dL RDW Coeff of Ester 15.2 H (10.0-15.0) % Plt Count 334 (130-400) x10^3/uL Add Manual Diff Yes Neutrophils % (Manual) 46 L (50-80) % Band Neutrophils % 4 (0-6) % Lymphocytes % (Manual) 36 (25-50) % Monocytes % (Manual) 13 H (2-11) % Eosinophils % (Manual) 1 (0-4) % Platelet Estimate Adequate Giant Platelets Few H Macrocytosis 2+ moderate H Sodium 140 (136-145) mmol/L Potassium 4.1 (3.5-5.1) mmol/L Chloride 105 (98-107) mmol/L Carbon Dioxide 31 (21-32) mmol/L Anion Gap 8.1 L (10-20) mmol/L BUN 17 (7-18) mg/dL Creatinine 1.3 H (0.55-1.02) mg/dL Est Cr Clr Drug Dosing 33.47 mL/min Estimated GFR (MDRD) 42 Glucose 79 (74-106) mg/dL Calcium 8.1 L (8.5-10.1) mg/dL Med Orders - Current: Current Medications Acetaminophen (Tylenol) 650 mg PO Q4H PRN PRN Reason: Pain (Mild 1-3)/fever Artificial Tears (Genteal Mild To Moderate Ophth Soln) 0 ml EYEBOTH BID [facility] Last Admin: 11/11/20 08:40 Dose: 1 drop Documented by: Artificial Tears (Genteal Mild To Moderate Ophth Soln) 0 ml EYEBOTH Q2H PRN PRN Reason: Dry Eyes Divalproex Sodium (Depakote Sprinkle) 500 mg PO DAILY [facility] Last Admin: 11/11/20 08:40 Dose: 500 mg Documented by: Divalproex Sodium (Depakote Sprinkle) 750 mg PO BEDTIME [facility] Last Admin: 11/10/20 20:33 Dose: 750 mg Documented by: Donepezil HCl (Aricept) 10 mg PO BEDTIME [facility] Last Admin: 11/10/20 20:33 Dose: 10 mg Documented by: Heparin Sodium (Porcine) (Heparin Sodium) 5,000 units SUBCUT Q8H [facility] Last Admin: 11/11/20 06:14 Dose: 5,000 units Documented by: Levothyroxine Sodium (Synthroid) 88 mcg PO ACBREAKFAST [facility] Last Admin: 11/11/20 06:13 Dose: 88 mcg Documented by: Children's Chewable (Vitamin) 1 tab PO DAILY [facility] Last Admin: 11/11/20 09:12 Dose: Not Given Documented by: Discontinued Medications Sodium Chloride (Normal Saline) 1,000 mls @ 999 mls/hr IV ONETIME ONE Stop: 11/09/20 21:06 Last Admin: 11/09/20 19:55 Dose: 999 mls/hr Documented by: Sodium Chloride (Normal Saline) 1,000 mls @ 50 mls/hr IV ASDIRECTED [facility] Last Admin: 11/10/20 21:50 Dose: 50 mls/hr Documented by: - Exam General: Alert, Cooperative, No Acute Distress HEENT: Mucous Membr. Moist/[place] Neck: Supple, Trachea Midline, No Thyromegaly. No: Lymphadenopathy Lungs: Normal Respiratory Effort, Decreased Breath Sounds (RLL) Cardiovascular: Regular Rate, Regular Rhythm, No Murmurs GI/Abdominal Exam: Normal Bowel Sounds, Soft, No Organomegaly, No Distention, No Mass, Tender (patient does wince when abdomen is palpated) Extremities: Non-Tender, No Pedal Edema, Normal Capillary Refill Peripheral Pulses: 2+: Radial (L), Radial (R) Skin: Warm, Dry, Intact Neurological: No New Focal Deficit Sepsis Event Note - Evaluation Sepsis Screening Result: No Definite Risk - Focused Exam Vital Signs: Vital Signs Temp Pulse Resp BP Pulse Ox 11/11/20 05:37 36.3 C 56 L 14 117/63 97 11/11/20 02:00 36.6 C 71 16 114/43 L 99 11/10/20 21:55 36.6 C 73 16 122/68 99 - Problem List & Annotations (1) Dehydration SNOMED Code(s): 54559770 Code(s): E86.0 - DEHYDRATION Status: Acute Current Visit: Yes (2) Diarrhea SNOMED Code(s): 62230027 Code(s): R19.7 - DIARRHEA, UNSPECIFIED Status: Acute Current Visit: Yes (3) Acute kidney injury SNOMED Code(s): 93622381, 09136919 Code(s): N17.9 - ACUTE KIDNEY FAILURE, UNSPECIFIED Status: Acute Current Visit: No (4) Anemia SNOMED Code(s): 511025338 Code(s): D64.9 - ANEMIA, UNSPECIFIED Status: Chronic Current Visit: No Qualifiers: Anemia type: unspecified type Qualified Code(s): D64.9 - Anemia, unspecified (5) Leukopenia SNOMED Code(s): 87493776, 469857800 Code(s): D72.819 - DECREASED WHITE BLOOD CELL COUNT, UNSPECIFIED Status: Chronic Current Visit: No Qualifiers: Leukopenia type: unspecified Qualified Code(s): D72.819 - Decreased white blood cell count, unspecified (6) Alzheimer disease SNOMED Code(s): 76542797 Code(s): G30.9 - ALZHEIMER'S DISEASE, UNSPECIFIED; F02.80 - DEMENTIA IN OTH DISEASES CLASSD ELSWHR W/O BEHAVRL DISTURB Status: Chronic Current Visit: No (7) Down syndrome SNOMED Code(s): 59322173 Code(s): Q90.9 - DOWN SYNDROME, UNSPECIFIED Status: Chronic Current Visit: No (8) Hypothyroid SNOMED Code(s): 34515294 Code(s): E03.9 - HYPOTHYROIDISM, UNSPECIFIED Status: Chronic Current Visit: No Qualifiers: Hypothyroidism type: acquired Qualified Code(s): E03.9 - Hypothyroidism, unspecified (9) Seizure disorder SNOMED Code(s): 674040478 Code(s): G40.909 - EPILEPSY, UNSP, NOT INTRACTABLE, WITHOUT STATUS EPILEPTICUS Status: Chronic Current Visit: No - Problem List Review Problem List Initiated/Reviewed/Updated: Yes - My Orders Last 24 Hours: My Active Orders 11/12/20 05:11 BASIC METABOLIC PANEL,BMP [CHEM] Routine CBC WITH AUTO DIFF [HEME] Routine - Assessment Assessment:: 60 yo female hospital day #3 admitted with dehydration secondary to diarrhea. Is improved compared to admission but still not eating/drinking well. Labs improved. C. difficile pending. - Plan Plan:: #1 Dehydration, secondary to #2 #2 Diarrhea #3 GWYN - Diarrhea is somewhat improved but still persistent. - Creatinine improved to 1.3 today from 1.7 on admit. - Awaiting c. difficile results. - If positive, will treat with oral vancomycin. - If negative, symptoms likely side effect of antibiotic vs other viral infection. Then will try Imodium. - BP hypotensive on admit but stable after fluid resuscitation. - Will d/c IV fluids today and see if she is able to maintain on her own. - Recheck labs in the am. #4 Anemia, subacute #5 Leukopenia, chronic - Anemia new with prior hospitalization but leukopenia is chronic. - Labs stable since admit (aside from accounting for hemodilution). - Monitor labs daily. #6 Alzheimers #7 Down Syndrome #8 Hypothyroidism #9 Seizure Disorder - Continue home meds Diet: Soft DVT: SQ heparin, monitor CBC daily Code: DNR/DNI Disposition: Patient will remain on acute today - C. difficile results anticipated today and patient will remain admitted until final plan for diarrhea as she is otherwise high risk for re-admission again. Anticipate d/c as soon as tomorrow depending on results/response to treatment.
[2020-11-11] MEDS: Donepezil 10 MG Tab PO SCH (20:55)
[2020-11-12] MEDS: Heparin Sodium 5,000 Units/ML Vial SUBCUT SCH (05:53)
[2020-11-12] MEDS: Levothyroxine 88 MCG Tab PO SCH (06:00)
[2020-11-12 07:16] LABS: ANION GAP 9.6 mmol/L (10-20)
[2020-11-12] MEDS: Divalproex Sodium Delayed-Release 125 MG Cap.Sprink PO SCH (09:01)
[2020-11-12] MEDS: [UNRECOGNIZED DRUG - OTHER] PO SCH (09:02)
[2020-11-12] MEDS: Hypromellose 0.3% Ophth Soln 15 ML Bottle EYEBOTH SCH (09:02)
--- NOTE | 2020-11-12 10:39 | PCM.DCSUM1 ---
Discharge Summary - Hospital Course Brief History: Ms. Herron is a 60 yo female who was admitted for dehydration and diarrhea after presenting to the ER for evaluation of generalized weakness and hypotension. - Discharge Data Discharge Date: 11/12/20 Discharge Disposition: Home, Self-Care 01 Condition: Good - Referral to Home Health Primary Care Physician: Anna Iqbal MD - Discharge Diagnosis/Problem(s) (1) Dehydration SNOMED Code(s): 88546131 ICD Code: E86.0 - DEHYDRATION Status: Acute Current Visit: Yes (2) Diarrhea SNOMED Code(s): 47805147 ICD Code: R19.7 - DIARRHEA, UNSPECIFIED Status: Acute Current Visit: Yes (3) Acute kidney injury SNOMED Code(s): 03251107, 38121171 ICD Code: N17.9 - ACUTE KIDNEY FAILURE, UNSPECIFIED Status: Acute Current Visit: No (4) Anemia SNOMED Code(s): 216989355 ICD Code: D64.9 - ANEMIA, UNSPECIFIED Status: Chronic Current Visit: No Qualifiers: Anemia type: unspecified type Qualified Code(s): D64.9 - Anemia, unspecified (5) Leukopenia SNOMED Code(s): 27111865, 680494380 ICD Code: D72.819 - DECREASED WHITE BLOOD CELL COUNT, UNSPECIFIED Status: Chronic Current Visit: No Qualifiers: Leukopenia type: unspecified Qualified Code(s): D72.819 - Decreased white blood cell count, unspecified (6) Alzheimer disease SNOMED Code(s): 47191586 ICD Code: G30.9 - ALZHEIMER'S DISEASE, UNSPECIFIED; F02.80 - DEMENTIA IN OTH DISEASES CLASSD ELSWHR W/O BEHAVRL DISTURB Status: Chronic Current Visit: No (7) Down syndrome SNOMED Code(s): 09938454 ICD Code: Q90.9 - DOWN SYNDROME, UNSPECIFIED Status: Chronic Current Visit: No (8) Hypothyroid SNOMED Code(s): 64058036 ICD Code: E03.9 - HYPOTHYROIDISM, UNSPECIFIED Status: Chronic Current Visit: No Qualifiers: Hypothyroidism type: acquired Qualified Code(s): E03.9 - Hypothyroidism, unspecified (9) Seizure disorder SNOMED Code(s): 247219390 ICD Code: G40.909 - EPILEPSY, UNSP, NOT INTRACTABLE, WITHOUT STATUS EPILEPTICUS Status: Chronic Current Visit: No - Patient Summary/Data Operative Procedure(s) Performed: none Complications: none Consults: Consultations 11/12/20 08:52 Consult to Physical Therapy [PT Evaluation and Treatment] [CONS] Routine Labs Pending at D/C: none Recommended Follow-up Testing/Procedures: none Planned Operative Procedure(s) after DC: none Hospital Course: The patient was admitted and given IV fluids. Her labs progressively improved. Her level of alertness improved and she has been eating and drinking better. A c. difficile test was obtained and returned negative. Her diarrhea improved without any intervention. She has only had 2 formed bowel movements in the past 24 hours. She has been off IV fluids since yesterday morning and has been able to maintain hydration on her own. Her home medications were continued. Her hospitalization was otherwise uncomplicated. It is felt the diarrhea was likely related to a side effect of the antibiotics. She is ambulating with assistance of 1 and her care home is comfortable taking her back today. - Patient Instructions Diet: Usual Diet as Tolerated - Discharge Plan *PRESCRIPTION DRUG MONITORING PROGRAM REVIEWED*: Not Applicable *COPY OF PRESCRIPTION DRUG MONITORING REPORT IN PATIENT TOMMIE: Not Applicable Home Medications: Home Meds Cholecalciferol (Vitamin D3) [Vitamin D3] 2,000 unit PO DAILY 03/11/19 [History] Carboxymethylcellulose Sodium [Refresh Tears] 1 drop OP BID 10/22/20 [History] Carboxymethylcellulose Sodium [Refresh Tears] 1 drop OP Q2H PRN 10/22/20 [History] Divalproex Sodium [Depakote Sprinkle] 500 mg PO DAILY 10/22/20 [History] Divalproex Sodium [Depakote Sprinkle] 750 mg PO BEDTIME 10/22/20 [History] Pediatric Multivit Comb No.144 [Children's Chewable Vitamin] 1 tab PO DAILY 10/23/20 [History] Acetaminophen [Tylenol] 650 mg PO Q4H PRN tablet 10/28/20 [Rx] Donepezil [Aricept] 10 mg PO BEDTIME tablet 10/28/20 [Rx] Levothyroxine [Synthroid] 88 mcg PO ACBREAKFAST tablet 10/28/20 [Rx] Forms: ED Department Discharge Referrals: Anna Iqbal MD [Primary Care Provider] - - Discharge Summary/Plan Comment DC Time >30 min.: No - General Info Date of Service: 11/12/20 Subjective Update: Patient resting in bed this morning with no complaints. Has been eating/drinking better. No diarrhea in the past 24 hours. 2 formed stools yesterday. - Review of Systems Systems Review Comment: unable to obtain - Down Syndrome and dementia - Patient Data Vitals - Most Recent: Last Vital Signs Temp 36.2 C 11/12/20 09:50 Pulse 87 11/12/20 09:50 Resp 19 11/12/20 09:50 BP 109/70 11/12/20 09:50 Pulse Ox 93 L 11/12/20 09:50 Weight - Most Recent: 58.96 kg I&O - Last 24 hours: Intake & Output 11/11/20 11/12/20 11/12/20 22:59 06:59 14:59 Intake Total 705 Balance 705 Lab Results - Last 24 hrs: Laboratory Results - last 24 hr 11/12/20 11/12/20 Range/Units 06:58 06:58 WBC 3.0 L (4.0-10.0) x10^3/uL RBC 2.79 L (4.00-5.50) x10^6/uL Hgb 9.8 L (12.0-16.0) g/dL Hct 29.8 L (33.0-47.0) % MCV 106.8 H (78.0-93.0) fL MCH 35.1 H (26.0-32.0) pg MCHC 32.9 (32.0-36.0) g/dL RDW Coeff of Ester 15.1 H (10.0-15.0) % Plt Count 303 (130-400) x10^3/uL Neut % (Auto) 49.0 L (50.0-80.0) % Lymph % (Auto) 39.1 (25.0-50.0) % [place] % (Auto) 8.6 (2.0-11.0) % Eos % (Auto) 2.3 (0.0-4.0) % Baso % (Auto) 1.0 (0.2-1.2) % Sodium 141 (136-145) mmol/L Potassium 3.6 (3.5-5.1) mmol/L Chloride 103 (98-107) mmol/L Carbon Dioxide 32 (21-32) mmol/L Anion Gap 9.6 L (10-20) mmol/L BUN 15 (7-18) mg/dL Creatinine 1.2 H (0.55-1.02) mg/dL Est Cr Clr Drug Dosing 36.26 mL/min Estimated GFR (MDRD) 46 Glucose 102 (74-106) mg/dL Calcium 8.1 L (8.5-10.1) mg/dL RITA Results - Last 24 hrs: Microbiology 11/09/20 19:00 Clostridioides difficile (PCR) - Final Stool / Feces Med Orders - Current: Current Medications Acetaminophen (Tylenol) 650 mg PO Q4H PRN PRN Reason: Pain (Mild 1-3)/fever Last Admin: 11/11/20 20:55 Dose: 650 mg Documented by: Artificial Tears (Genteal Mild To Moderate Ophth Soln) 0 ml EYEBOTH BID [facility] Last Admin: 11/12/20 09:02 Dose: 1 drop Documented by: Artificial Tears (Genteal Mild To Moderate Ophth Soln) 0 ml EYEBOTH Q2H PRN PRN Reason: Dry Eyes Divalproex Sodium (Depakote Sprinkle) 500 mg PO DAILY [facility] Last Admin: 11/12/20 09:01 Dose: 500 mg Documented by: Divalproex Sodium (Depakote Sprinkle) 750 mg PO BEDTIME [facility] Last Admin: 11/11/20 20:55 Dose: 750 mg Documented by: Donepezil HCl (Aricept) 10 mg PO BEDTIME [facility] Last Admin: 11/11/20 20:55 Dose: 10 mg Documented by: Heparin Sodium (Porcine) (Heparin Sodium) 5,000 units SUBCUT Q8H [facility] Last Admin: 11/12/20 05:53 Dose: 5,000 units Documented by: Levothyroxine Sodium (Synthroid) 88 mcg PO ACBREAKFAST [facility] Last Admin: 11/12/20 06:00 Dose: 88 mcg Documented by: Children's Chewable (Vitamin) 1 tab PO DAILY [facility] Last Admin: 11/12/20 09:02 Dose: 1 tab Documented by: Discontinued Medications Sodium Chloride (Normal Saline) 1,000 mls @ 999 mls/hr IV ONETIME ONE Stop: 11/09/20 21:06 Last Admin: 11/09/20 19:55 Dose: 999 mls/hr Documented by: Sodium Chloride (Normal Saline) 1,000 mls @ 50 mls/hr IV ASDIRECTED [facility] Last Admin: 11/10/20 21:50 Dose: 50 mls/hr Documented by: - Exam General: Reports: Alert, Cooperative, No Acute Distress HEENT: Reports: Mucous Membr. Moist/[place] Neck: Reports: Supple, Trachea Midline, No Thyromegaly. Denies: Lymphadenopathy Lungs: Reports: Clear to Auscultation, Normal Respiratory Effort Cardiovascular: Reports: Regular Rate, Regular Rhythm, No Murmurs GI/Abdominal Exam: Normal Bowel Sounds, Soft, Non-Tender, No Organomegaly, No Distention, No Mass Extremities: Normal Inspection, No Pedal Edema Skin: Reports: Warm, Dry, Intact Neurological: Reports: No New Focal Deficit
== END 2020-11-12 13:20 | disposition home or self-care (01) | DRG 641 ==
LOC: VM.ED 19:45 → VM.MS 21:19
PROVIDERS: ADMIT Family Medicine; ATTEND Family Medicine
DX: R19.7 Diarrhea, unspecified (principal); E86.0 Dehydration; I95.9 Hypotension, unspecified; H91.93 Unspecified hearing loss, bilateral; N17.9 Acute kidney failure, unspecified; Z66 Do not resuscitate; D64.9 Anemia, unspecified; Q90.9 Down syndrome, unspecified; D72.819 Decreased white blood cell count, unspecified; G30.9 Alzheimer's disease, unspecified; F02.80 Dementia in other diseases classified elsewhere, unspecified severity, without behavioral disturbance, psychotic disturbance, mood disturbance, and anxiety; Z88.8 Allergy status to other drugs, medicaments and biological substances; E03.9 Hypothyroidism, unspecified; G40.909 Epilepsy, unspecified, not intractable, without status epilepticus; H91.90 Unspecified hearing loss, unspecified ear; H54.7 Unspecified visual loss; E78.00 Pure hypercholesterolemia, unspecified; H50.00 Unspecified esotropia; E66.9 Obesity, unspecified; N18.9 Chronic kidney disease, unspecified; Z20.822 Contact with and (suspected) exposure to COVID-19; Z87.440 Personal history of urinary (tract) infections; Z79.899 Other long term (current) drug therapy; Z88.1 Allergy status to other antibiotic agents; Z88.2 Allergy status to sulfonamides; Z97.4 Presence of external hearing-aid; Z90.89 Acquired absence of other organs; Z98.51 Tubal ligation status; Z79.890 Hormone replacement therapy
CPT/HCPCS: 36415; 80048; 85025; 87493; 99284; 99285; A9270-GY; J1644; J7030; U0002